=== PATIENT | female | born 1940 | race Caucasian/White ===

== ENCOUNTER → 2017-06-24 16:37 | Outpatient (CLI) | payer MEDICARE, SELFPAY | PROVIDERS: Family Provider Internal Medicine; PCP Internal Medicine; Visit Provider Podiatrist | DX: L03.032 Cellulitis of left toe (principal) | CPT/HCPCS: 87070; 87077; 87186; 87205 ==

== ENCOUNTER → 2018-03-27 20:17 | Outpatient (CLI) | payer MEDICARE, SELFPAY | PROVIDERS: Family Provider Internal Medicine; PCP Internal Medicine; Referring Provider Podiatrist; Visit Provider Podiatrist | DX: L03.032 Cellulitis of left toe (principal) | CPT/HCPCS: 87070; 87077; 87186; 87205 ==

== ENCOUNTER → 2018-04-02 18:33 | Outpatient (CLI) | payer MEDICARE, SELFPAY ==
[2018-04-02 20:00] LABS: Source- Body Fluid OTHER
[2018-04-04 10:20] LABS: Pathologist Review Reviewed
--- OUTSIDE RECORDS SUMMARY | 2018-05-19 22:33 | XMS RPT_ITS ---
:1940 Author Organization OHIP Care Team Providers Name Role Phone John Archer Attending Unavailable Dav, Whitney Primary Care Unavailable Jovannynning John Referring Unavailable JovannynnJohn galvan Attending Unavailable Dav, Whitney Primary Care Unavailable Vu Archerrey Referring Unavailable John Archer Attending Unavailable Wunning, John Referring Unavailable Dav, Whitney Primary Care Unavailable Jovannynning, John Attending Unavailable Dav, Whitney Primary Care Unavailable Jovannynning, John Referring Unavailable PROBLEMS PROBLEMS No Problem Records FoundPROCEDURES PROCEDURES No Procedure Records FoundRESULTS RESULTS CBC W/DIFF, AUTOMATED Collected: 04/03/2018 Status: F Source: [place] 2:04 PM [facility] [place] CODE TESTS RESULT OUT OF RANGE REFERENCE UNITS LAB L100.1000 4.4-11.0 K/mm3 Normal WBC 8.1 LAB L100.1200 4.2-5.4 M/mm3 Normal RBC 4.34 LAB L100.1300 12.0-15.0 g/dl Low HGB 11.6 LAB L100.1400 37-47 % Low HCT 36.7 LAB L100.1500 81-99 fL Normal MCV 84.6 LAB L100.1600 27.0-32.0 pg Low MCH 26.7 LAB L100.1700 32-36 g/gl Low MCHC 31.6 LAB L100.1810 11.6-14.6 % Normal RDW CV 14.3 LAB L100.1820 35.1-43.9 fl High RDW SD 44.8 LAB L100.1900 150-450 K/mm3 Normal PLT 320 LAB L100.2000 6.2-12.0 fl Normal MPV 10.1 LAB L100.2100 47-70 % High NEUT% 72.4 LAB L100.2200 19-41 % Normal LY% 20.6 LAB L100.2300 0-10 % Normal MONO% 5.5 LAB L100.2400 0-5 % Normal EO% 1.2 LAB L100.2500 0-1 % Normal BASO% 0.2 LAB L100.2550 0.0-0.9 % Normal IM GRAN % 0.100 Result Comment: IG% - Immature Granulocytes (promyelocytes, myelocytes and metamyelocytes) > 1% indicates that a LEFT SHIFT is Present. LAB L100.2620 2.0-7.7 X10 3/uL Normal Absolute Neut 5.8 LAB L100.2720 0.83-4.51 X10 3/ul Normal Absolute Lymph 1.66 Performed By: #### L100.0100 #### [facility] [address] [facility] [place], [address] COMPREHENSIVE METABOLIC Collected: 04/03/2018 Status: F Source: [facility] 2:04 PM [facility] [place] CODE TESTS RESULT OUT OF RANGE REFERENCE UNITS LAB L501.0100 74-106 mg/dL Normal GLU 93 Result Comment: Please note revised GLUCOSE reference range effective 2017. LAB L501.1000 7-18 mg/dL Normal BUN 18 LAB L501.1100 0.55-1.02 mg/dL Normal CREAT,SERUM 0.67 Result Comment: The validity of the calculated GFR AND GFRAA in patients over 70 years has not been determined. Clinical correlation is essential. LAB L501.1110 >60 mL/min Normal EST GFR 91 Result Comment: Non- GFR Calc LAB L501.1115 >60 mL/min Normal EST GFR - AA 110 Result Comment: GFR Calc LAB L501.1300 10-20 RATIO High BUN/CRE 26.7 LAB L501.1500 6.4-8.2 g/dL T Normal PROT 7.4 LAB L501.1800 3.2-5.0 g/dL Normal ALB 3.5 LAB L501.1950 2.2-4.2 g/dL Normal GLOB 3.9 LAB L501.2000 0.9-2.4 RATIO Normal A/G 0.9 LAB L501.2200 8.5-10.1 mg/dL CA Normal 9.3 LAB L501.4100 15-37 U/L Low AST 12 LAB L501.4305 45-117 U/L Normal ALK P 98 LAB L501.4405 13-56 U/L Normal ALT 13 LAB L501.4600 0.20-1.00 mg/dL T Normal BILI 0.40 LAB L501.5300 136-145 mmol/L NA Normal 140 LAB L501.5600 3.5-5.1 mmol/L K Normal 3.6 LAB L501.5900 98-107 mmol/L CL Normal 102 LAB L501.6100 21.0-32.0 mmol/L Normal CO2 31.0 LAB L501.6200 5-15 Normal GAP 7 Performed By: #### L500.4050, L501.1400 #### [facility] [address] [place], [place], [address] URIC ACID Collected: 04/03/2018 Status: F Source: [place] 2:04 PM [facility] [place] CODE TESTS RESULT OUT OF RANGE REFERENCE UNITS LAB L501.1400 2.6-6.0 mg/dL High URIC 7.3 Result Comment: The drugs N-Acetylcysteine and Metamizole may falsely depress this assay. Performed By: #### L500.4050, L501.1400 #### [facility] [address] [place], [address] CRYSTALS, BODY FLUID Collected: 04/02/2018 Status: C Source: [place] 4:30 PM [facility] [place] CODE TESTS RESULT OUT OF RANGE REFERENCE UNITS LAB L200.4200 Normal SEE PATH REV CRYSTALS/BF LAB L200.4225 Normal OTHER SOURCE/BF LAB L200.6020 Normal PATH Reviewed REV Result Comment: Bloody specimen. Negative for cystals. Laz Sue M.D. 04/04/18 AMENDED REPORT 04/04/18 1020 PATH REV previously reported as: Will follow Performed By: #### L200.4175 #### [facility] [address] [place], [address] Observed: 04/02/2018 Status: F Source: [place] CULTURE, DEEP WOUND 4:30 PM [facility] [place] Comments: GOUT Gram Stain Gram Stain Rare Red Blood Cells No organisms seen Wound Culture No growth aerobically. Cult, Anaerobic No growth in 5 days. Performed By: #### M100.1500 #### [facility] [address] [place], [address] Observed: 03/27/2018 Status: F Source: [place] CULTURE, WOUND 1:45 PM [facility] [place] Gram Stain Gram Stain 1+ Red Blood Cells No organisms seen Wound Culture ORGANISM 1: Staphylococcus aureus Amount Growth Rare Staphylococcus aureus: REACTION Benzylpenicillin NF <=0.03 R Cefoxitin *NF - Clindamycin $$ <=0.25 S Inducable Clindamycin Resistan - Erythromycin $ <=0.25 S Gentamicin $ <=0.5 S Levofloxacin $ <=0.12 S Linezolid $$$$ 2 S Moxifloxicin *NF <=0.25 S Oxacillin NF <=0.25 S Tigecycline $$$$ <=0.12 S Rifampin $$ <=0.5 S Tetracycline NF <=1 S Trimethoprim/Sulfametho $ <=10 S Vancomycin $ <=0.5 S (NF) indicates non-formulary drug at [facility]. Approval by Infectious Disease Specialist required before non-formulary drugs may be ordered and/or dispensed. * CLSI guidelines does not recommend testing of cephalosporins. This interpretation is deduced from Beta-lactam/penicillin results. Performed By: #### M100.1400 #### [facility] [address] [place], [address] Observed: 06/24/2017 Status: F Source: [place] CULTURE, WOUND 12:00 PM [facility] [place] Comments: CELLULITITS L 1ST TOE Gram Stain Gram Stain Rare Epithelial cells Rare Red Blood Cells Rare White Blood Cells No organisms seen Wound Culture ORGANISM 1: Staphylococcus lugdunensis Amount Growth 3+ Staphylococcus lugdunensis: REACTION Benzylpenicillin NF 0.25 R Cefoxitin *NF - Clindamycin $$ <=0.25 S Inducable Clindamycin Resistan - Erythromycin $ <=0.25 S Gentamicin $ <=0.5 S Levofloxacin $ 0.25 S Oxacillin NF 2 S Tigecycline $$$$ <=0.12 S Rifampin $$ <=0.5 S Tetracycline NF <=1 S Vancomycin $ <=0.5 S (NF) indicates non-formulary drug at [facility]. Approval by Infectious Disease Specialist required before non-formulary drugs may be ordered and/or dispensed. * CLSI guidelines does not recommend testing of cephalosporins. This interpretation is deduced from Beta-lactam/penicillin results. Performed By: #### M100.1400 #### [facility] [address] [place], [address] ALLERGIES ALLERGIES No Allergies Records FoundENCOUNTERS ENCOUNTERS ADMIT/DISCHARGE ACCOUNT ADMITTING ENCOUNTER LOCATION SOURCE NUMBER CLASS 04/03/2018 [id number] Ambulatory [facility] 4 [facility] ing:MTLAB Repository 04/02/2018 [id number] Ambulatory [facility] 8 [facility] ing:LABSPEC Repository 03/27/[id number] ing:LABSPEC Repository 06/24/[id number] ing:MTLAB Repository PAYERS PAYERS ENCOUNTER GUARANTOR PAYER SUBSCRIBER SOURCE 04/03/2018 MEIR PINOL K [place] [id number] BACK Insurance:TREY STEINERDOB: [facility] [id number] Hospital Number: Repository [id number]: 330 [id number] [phone] (HP) Date:4811-45-52EC [facility] [address] [address]NR: 04/03/2018 Secondary NOT GIVENUNK [place] Insurance:SELF PAY [facility] Number: Effective Repository Date:2018-04-03 04/02/2018 MEIR English Primary MEIR English [place] [id number] BACK Insurance:TREY JONATHANERDOB: [facility] [id number] Hospital Number: Repository [id number]: 330 [id number] [phone] (HP) Date:1573-85-92TS [facility] [address] [address]ZU: 04/02/2018 Secondary NOT GIVENUNK [place] Insurance:SELF PAY [facility] Number: Effective Repository Date:2018-04-02 03/27/2018 Meir Tameka Primary Meir English [place] [id number] Back Insurance:TREY SteinerDOB: [facility] [id number] [facility] Number: Repository [id number]: 330 [id number] [phone] (HP) Date:9692-67-85YC [facility] [address] [address]YV: 03/27/2018 Secondary NOT GIVENUNK [place] Insurance:SELF PAY [facility] Number: Effective Repository Date:2018-03-27 06/24/2017 Meir English Primary Meir English [place] [id number] Back Insurance:TREY SteinerDOB: [facility] [id number] [facility] Number: Repository [id number]: [phone] [id number] [phone] () Date:9917-85-08UO [address] [place] [address]HO: 06/24/2017 Secondary NOT GIVENUNK [place] Insurance:SELF PAY [facility] Number: Effective Repository Date:2017-06-24
== END ==
PROVIDERS: Family Provider Internal Medicine; PCP Internal Medicine; Referring Provider Podiatrist; Visit Provider Podiatrist
DX: M10.9 Gout, unspecified (principal)
CPT/HCPCS: 87070; 87075; 87205; 89060

== ENCOUNTER → 2018-04-03 13:54 | Outpatient (CLI) | payer MEDICARE, SELFPAY ==
[2018-04-03 15:35] LABS: Absolute Lymphocyte Count 1.66 X10^3/ul (0.83-4.51); Absolute Neutrophil Count 5.8 X10^3/uL (2.0-7.7); Basophil# 0.02 X10^3/uL; Basophil% 0.2 % (0-1); Eosinophils% 1.2 % (0-5); Hematocrit 36.7 % (37-47); Hemoglobin 11.6 g/dl (12.0-15.0); Lymphocyte # 1.66 X10^3/ul (4.0); Lymphocyte % 20.6 % (19-41); Mean Corp Hgb Conc 31.6 g/gl (32-36); Mean Corpuscular Hgb 26.7 pg (27.0-32.0); Mean Corpuscular Volume 84.6 fL (81-99); Mean Platelet Vol. 10.1 fl (6.2-12.0); Monocyte# 0.44 X10^3/uL; Monocyte% 5.5 % (0-10); Neutrophil # 5.82 X10^3/uL (2.7-7.7); Neutrophil % 72.4 % (47-70); Platelet Count 320 K/mm3 (150-450); RBC Distribution Width CV 14.3 % (11.6-14.6); RBC Distribution Width SD 44.8 fl (35.1-43.9); Red Blood Count 4.34 M/mm3 (4.2-5.4); White Blood Count 8.1 K/mm3 (4.4-11.0)
[2018-04-03 15:37] LABS: POSITIVE COUNT NO; POSITIVE DIFFERENTIAL NO; POSITIVE MORPHOLOGY NO
[2018-04-03 15:45] LABS: ALB/GLOB Ratio 0.9 RATIO (0.9-2.4); AST(SGOT) 12 U/L (15-37); Alanine Aminotransfer ALT/SGPT 13 U/L (13-56); Albumin, Serum 3.5 g/dL (3.2-5.0); Alkaline Phosphatase 98 U/L (45-117); Anion Gap 7 (5-15); BUN 18 mg/dL (7-18); BUN/Creat Ratio 26.7 RATIO (10-20); Calcium,Total 9.3 mg/dL (8.5-10.1); Chloride 102 mmol/L (98-107); Creatinine, Serum 0.67 mg/dL (0.55-1.02); EST Glomerular Filtration Rate 91 mL/min (>60); Est Glom Filt Rate - Afr Amer 110 mL/min (>60); Globulin 3.9 g/dL (2.2-4.2); Glucose 93 mg/dL (74-106); Potassium 3.6 mmol/L (3.5-5.1); Protein, Total 7.4 g/dL (6.4-8.2); Sodium Level 140 mmol/L (136-145); Uric Acid 7.3 mg/dL (2.6-6.0)
--- OUTSIDE RECORDS SUMMARY | 2018-05-20 10:14 | XMS RPT_ITS ---
[...] W/DIFF, AUTOMATED Collected: 04/03/2018 Status: F Source: [place] 2:04 PM [facility] [place] TYPE CODE TESTS RESULT OUT OF [...] Lymph 1.66 Performed By: #### L100.0100 #### [facility] [address] [facility] [place], [address] COMPREHENSIVE METABOLIC Collected: 04/03/2018 Status: F Source: [facility] 2:04 PM [facility] [place] TYPE CODE TESTS RESULT OUT OF [...] 7 Performed By: #### L500.4050, L501.1400 #### [facility] [address] [place], [place], [address] URIC ACID Collected: 04/03/2018 Status: F Source: [place] 2:04 PM [facility] [place] TYPE CODE TESTS RESULT OUT OF RANGE REFERENCE UNITS LAB L501.1400 2.6-6.0 mg/dL High URIC 7.3 Result Comment: The drugs N-Acetylcysteine and Metamizole may falsely depress this assay. Performed By: #### L500.4050, L501.1400 #### [facility] [address] [place], [address] CRYSTALS, BODY FLUID Collected: 04/02/2018 Status: C Source: [place] 4:30 PM [facility] [place] TYPE CODE TESTS RESULT OUT OF RANGE REFERENCE UNITS LAB L200.4200 Normal SEE PATH REV CRYSTALS/BF LAB L200.4225 Normal OTHER SOURCE/BF LAB L200.6020 Normal PATH Reviewed REV Result Comment: Bloody specimen. Negative for cystals. Laz Sue M.D. 04/04/18 AMENDED REPORT 04/04/18 1020 PATH REV previously reported as: Will follow Performed By: #### L200.4175 #### [facility] [address] [place], [address] Observed: 04/02/2018 Status: F Source: [place] CULTURE, DEEP WOUND 4:30 PM [facility] [place] Comments: GOUT Gram Stain Gram Stain Rare Red Blood Cells No organisms seen Wound Culture No growth aerobically. Cult, Anaerobic No growth in 5 days. Performed By: #### M100.1500 #### [facility] [address] [place], [address] Observed: 03/27/2018 Status: F Source: [place] CULTURE, WOUND 1:45 PM [facility] [place] Gram Stain Gram Stain 1+ Red [...] <=0.5 S (NF) indicates non-formulary drug at [facility]. Approval by Infectious Disease Specialist required before non-formulary drugs may be ordered and/or dispensed. * CLSI guidelines does not recommend testing of cephalosporins. This interpretation is deduced from Beta-lactam/penicillin results. Performed By: #### M100.1400 #### [facility] [address] [place], [address] Observed: 06/24/2017 Status: F Source: [place] CULTURE, WOUND 12:00 PM [facility] [place] Comments: CELLULITITS L 1ST TOE Gram [...] <=0.5 S (NF) indicates non-formulary drug at [facility]. Approval by Infectious Disease Specialist required before non-formulary drugs may be ordered and/or dispensed. * CLSI guidelines does not recommend testing of cephalosporins. This interpretation is deduced from Beta-lactam/penicillin results. Performed By: #### M100.1400 #### [facility] [address] [place], [address] ALLERGIES ALLERGIES No Allergies Records FoundENCOUNTERS ENCOUNTERS ADMIT/DISCHARGE ACCOUNT ADMITTING ENCOUNTER LOCATION SOURCE NUMBER CLASS 04/03/2018 [id number] Ambulatory [facility] 4 [facility] ing:MTLAB Repository 04/02/2018 [id number] Ambulatory [facility] 8 [facility] ing:LABSPEC Repository 03/27/[id number] ing:LABSPEC Repository 06/24/[id number] ing:MTLAB Repository PAYERS PAYERS ENCOUNTER GUARANTOR PAYER SUBSCRIBER SOURCE 04/03/2018 MEIR PINOL K [place] [id number] BACK Insurance:TREY STEINERDOB: [facility] [id number] Hospital Number: Repository [id number]: 330 [id number] [phone] (HP) Date:5736-55-79VD [facility] [address] [address]FT: 04/03/2018 Secondary NOT GIVENUNK [place] Insurance:SELF PAY [facility] Number: Effective Repository Date:2018-04-03 04/02/2018 MEIR English Primary MEIR English [place] [id number] BACK Insurance:TREY JONATHANERDOB: [facility] [id number] Hospital Number: Repository [id number]: 330 [id number] [phone] (HP) Date:4862-72-63OJ [facility] [address] [address]AU: 04/02/2018 Secondary NOT GIVENUNK [place] Insurance:SELF PAY [facility] Number: Effective Repository Date:2018-04-02 03/27/2018 Meir Tameka Primary Meir English [place] [id number] Back Insurance:TREY SteinerDOB: [facility] [id number] [facility] Number: Repository [id number]: 330 [id number] [phone] (HP) Date:9172-05-80JJ [facility] [address] [address]GC: 03/27/2018 Secondary NOT GIVENUNK [place] Insurance:SELF PAY [facility] Number: Effective Repository Date:2018-03-27 06/24/2017 Meir English Primary Meir English [place] [id number] Back Insurance:TREY SteinerDOB: [facility] [id number] Eye Medical Center Number: Repository [id number]: [phone] [id number] [phone] () Date:2059-07-61[address] [address]VZ: 06/24/2017 Secondary NOT GIVENUNK [place] Insurance:SELF PAY [facility] Number: Effective Repository Date:2017-06-24
== END ==
PROVIDERS: Family Provider Internal Medicine; PCP Internal Medicine; Referring Provider Podiatrist; Visit Provider Podiatrist
DX: M10.9 Gout, unspecified (principal)
CPT/HCPCS: 36415; 80053; 84550; 85025

== ENCOUNTER → 2018-11-07 | Outpatient (CLI) | payer MEDICARE, SELFPAY ==
[2018-11-07 20:01] LABS: M R Staph aureus DNA By PCR Negative (Negative); Probe Check PASS; Specimen Processing Control PASS; Staph aureus DNA By PCR NEGATIVE (Negative)
== END | disposition home or self-care (01) ==
PROVIDERS: Family Provider Internal Medicine; PCP Internal Medicine; Referring Provider Podiatrist; Visit Provider Podiatrist
DX: L97.529 Non-pressure chronic ulcer of other part of left foot with unspecified severity (principal)
CPT/HCPCS: 87070; 87075; 87186; 87205; 87640

== ENCOUNTER → 2019-05-27 11:11 | Outpatient (CLI) | payer MEDICARE, SELFPAY ==
--- NOTE | 2019-05-27 11:21 | RAD_ITS ---
STUDY: X-RAY - RIGHT HAND, ATTENTION MIDDLE FINGER REASON FOR EXAM: Gout, middle finger. TECHNIQUE: 3 view(s) of the finger were obtained. COMPARISON: None. FINDINGS: Normal metacarpal head. Normal metacarpophalangeal joint. There is a small osseous erosion at the dorsal aspect of the proximal phalangeal head with a small overhanging edge. Normal middle phalanx. Normal distal phalanx. There are marginal osteophytes, joint space narrowing and subchondral cystic change of the proximal interphalangeal joint. There are dorsal osteophytes at the distal interphalangeal joint without joint space narrowing. There is soft tissue swelling at the proximal interphalangeal joint. RAD/Hand Min 3 Views IMPRESSION: Osseous erosion at the dorsal aspect of the proximal phalangeal head, suggestive of gout. Osteoarthritis of the proximal interphalangeal joint. Soft tissue swelling at the proximal interphalangeal joint. Electronically Signed: Gabe Beckford MD at 12:13 EST Tel , Service support ,
== END ==
PROVIDERS: PCP Internal Medicine; Referring Provider Nurse Practitioner; Visit Provider Nurse Practitioner
DX: M10.9 Gout, unspecified (principal)
CPT/HCPCS: 73130

== ENCOUNTER 2019-06-19 14:47 | Inpatient (IN) | payer MEDICARE, SELFPAY ==
[2019-06-19] VITALS (10 sets, daily range): BP systolic 146–193; BP diastolic 70–89; PULSE 73–85; RESP 16–20; TEMP 36.4–37.2; O2SAT 94–97; BMI 36.3; BMI 35.6
--- NOTE | 2019-06-19 15:13 | EKG12_ITS ---
Test Reason : CP ADMIT/DYSPNEA Blood Pressure : / mmHG Vent. Rate : 083 BPM Atrial Rate : 083 BPM P-R Int : 152 ms QRS Dur : 094 ms QT Int : 380 ms P-R-T Axes : 074 -11 047 degrees QTc Int : 446 ms Normal sinus rhythm Nonspecific ST and T wave abnormality Abnormal ECG Confirmed by TEE MORENO, NORMA ([id number]), book or script editor EMILY MONTEZ ([id number]) on 06/24/2019 2:02:46 PM Referred By: DR JACINTO Confirmed By:NORMA OLIVEIRA MD
--- NOTE | 2019-06-19 15:15 | RAD_ITS ---
EXAM DESCRIPTION: PORTABLE AP CHEST CLINICAL HISTORY: 78 years Female, sob started last night, productive cough, sinus drainage, headache sob started last night, productive cough, sinus drainage, headache COMPARISON: None FINDINGS: The thorax is intact. The heart and mediastinum appear to be within normal limits. The lungs appear to be well areated without evidence of pneumonic consolidation or pleural effusion. RAD/Chest 1 View (Portable) IMPRESSION: Normal portable chest. Electronically Signed: Johnathon Godoy, at 15:41 EST Tel , Service support ,
[2019-06-19 15:36] LABS: Absolute Lymphocyte Count 0.67 X10^3/uL (0.83-4.51); Absolute Neutrophil Count 2.1 X10^3/uL (2.0-7.7); Basophil# 0.01 X10^3/uL; Basophil% 0.3 % (0-1); Eosinophil# 0.01 X10^3/uL; Eosinophils% 0.3 % (0-5); Hematocrit 27.1 % (37-47); Hemoglobin 7.9 g/dL (12.0-15.0); Lymphocyte # 0.67 X10^3/ul (4.0); Lymphocyte % 20.7 % (19-41); Mean Corp Hgb Conc 29.2 g/dL (32-36); Mean Corpuscular Hgb 22.1 pg (27.0-32.0); Mean Corpuscular Volume 75.7 fL (81-99); Mean Platelet Vol. 9.5 fl (6.2-12.0); Monocyte# 0.45 X10^3/uL; Monocyte% 13.9 % (0-10); NRBC Flagged by Analyzer 0 % (0-5); Neutrophil # 2.07 X10^3/uL (2.7-7.7); Neutrophil % 64.2 % (47-70); POSITIVE MORPHOLOGY YES; Platelet Count 200 K/mm3 (150-450); RBC Distribution Width CV 17.8 % (11.6-14.6); RBC Distribution Width SD 48.6 fl (35.1-43.9); Red Blood Count 3.58 M/mm3 (4.2-5.4); White Blood Count 3.2 K/mm3 (4.4-11.0)
[2019-06-19 15:54] LABS: Anion Gap 5 (5-15); BUN 7 mg/dL (7-18); BUN/Creat Ratio 11.1 RATIO (10-20); Calcium,Total 8.3 mg/dL (8.5-10.1); Chloride 105 mmol/L (98-107); Creatinine, Serum 0.63 mg/dL (0.55-1.02); EST Glomerular Filtration Rate 97 mL/min (>60); Est Glom Filt Rate - Afr Amer 118 mL/min (>60); Estimated Creatinine Clearance 46.54 ml/min; Glucose 106 mg/dL (74-106); Potassium 3.4 mmol/L (3.5-5.1); Sodium Level 138 mmol/L (136-145)
--- NOTE | 2019-06-19 16:05 | ED.DCSUM_ITS ---
- ER Visit Summary Date of Service: 06/19/19 Chief Complaint: [Shortness of breath] History of Present Illness: The patient is a 78 F [presents the emergency department with shortness of breath that occurred last evening. Patient states that she woke up in the middle night and felt very winded. Patient felt somewhat short of breath before going to bed also. States she had a hard time laying flat breathing so she sat up in a chair and try to finish the night off sleeping there. Patient did describe some discomfort and tightness across her chest and into her neck but denied any chest pain. Patient does describe increased exertional dyspnea of late. She denies recent travel or surgery. Patient telling me she was wheezing a little bit yesterday. She denies fever or significant cough. She is had some sinus drainage. Patient has history of hypertension and borderline diabetes. Patient also with history of gout. He has had prior appendectomy cholecystectomy. No heart history. She thinks her last stress test was over 10 years ago and she is never had a heart cath.] Physical Examination: [HEENT-PERRLA, EOMI. Cranial nerves II through XII grossly intact. TMs clear. Mucous membranes moist. No adenopathy. Cardiovascular-regular rate and rhythm without murmur or ectopy Lungs-clear to auscultation, chest wall stable without crepitus or subcu emphysema Abdomen-normoactive bowel sounds, soft, nontender, no rebound or rigidity, no peritoneal signs. Extremities-intact ?4, normal range of motion, normal pulses, atraumatic] Test Results: [CBC with differential was unremarkable. Chemistries unremarkable. Troponin is less than 0.015. Chest x-ray is normal. Valenza screen was negative.] Emergency Department Course and Treatment: [He received aspirin on arrival.] Treatment Plan: [Admit for further work-up and evaluation of her exertional dyspnea to rule out acute coronary syndrome] Disposition: [Admit] Impression: [Exertional dyspnea-rule out acute coronary syndrome] This note was generated with [employer] dictation software. It may contain incorrect words, spelling, and punctuation that were not noted in review of the chart prior to signing ED Disposition - Plan for ED Patient: Referrals: Whitney Demarco DO [Primary Care Provider] -
[2019-06-19 16:08] LABS: Differential Indicated SCAN CRITERIA MET
[2019-06-19] MEDS: 0.9% Normal Saline 1,000 ML 150 ML IV (16:08)
[2019-06-19] MEDS: Aspirin 81 MG TAB.CHEW 324 MG PO (16:08)
[2019-06-19 16:09] LABS: Anisocytosis 2+; Platelet Estimate ADEQUATE (ADEQ); Red Cell Morphology N CHROM NORMAL (NORM C&C)
--- NOTE | 2019-06-19 16:40 | HP.PCM_ITS ---
History of Present Illness The patient is a 78 year old F [] Past Medical History Allergies Penicillins [PCN] Allergy (Verified 06/19/19 14:49) Shortness of breath Smoking Status: Never smoker - Physical Exam Vitals/I&O's: Vital Signs Temp Pulse Resp BP Pulse Ox 98.1 F 75 20 H 146/70 H 96 06/19/19 16:37 06/19/19 16:37 06/19/19 16:37 06/19/19 16:37 06/19/19 16:37 Oxygen Delivery Method Room Air Weight: 231 lb 11.293 oz Body Mass Index (BMI) 36.3 Microbiology Past 72 Hours 06/19/19 15:30 Mucosa - Nose Influenza Types A,B Direct FA (HILARIA) - Final Laboratory Results 06/19/19 15:29: WBC 3.2 L, RBC 3.58 L, Hgb 7.9 L, Hct 27.1 L, MCV 75.7 L, MCH 22.1 L, MCHC 29.2 L, RDW Std Deviation 48.6 H, RDW Coeff of Rex 17.8 H, Plt Count 200, MPV 9.5, Immature Gran % (Auto) 0.600, Neut % (Auto) 64.2, Lymph % (A uto) 20.7, [place] % (Auto) 13.9 H, Eos % (Auto) 0.3, Baso % (Auto) 0.3, Absolute Neuts (auto) 2.1, Absolute Lymphs (auto) 0.67 L, Nucleated RBC % 0, Platelet Estimate ADEQUATE, RBC Morphology N CHROM, Anisocytosis 2+ 06/19/19 15:29: Sodium 138, Potassium 3.4 L, Chloride 105, Carbon Dioxide 28.0, Anion Gap 5, BUN 7, Creatinine 0.63, Estim Creat Clear Calc 46.54, Est GFR (MDRD) Af Amer 118, Est GFR (MDRD) Non-Af 97, BUN/Creatinine Ratio 11.1, Glucose 106, Calcium 8.3 L, Troponin I < 0.015 Current Medications Sodium Chloride () 1,000 mls @ 150 mls/hr IV .Q6H40M [facility] Last Admin: 06/19/19 16:08 Dose: 150 mls/hr Documented by:
--- NOTE | 2019-06-19 17:37 | HP.PCM_ITS ---
Problem List (1) Gout Status: Chronic (2) Hypertension Status: Chronic (3) EDDIE (obstructive sleep apnea) Status: Chronic (4) Hypothyroidism Status: Chronic (5) Anemia Status: Chronic History of Present Illness Date of Admission: 06/19/19 Chief Complaint: Shortness of breath. The patient is a 78 year old F who presents emergency room due to shortness of breath. Patient reports around 430 this morning after going to the restroom she became significantly short of breath. She went to lay down in bed and had increased shortness of breath with lying down. She states she then went out to the couch and put her feet up and shortness of breath slowly improved. She denies palpitations, chest pain, diaphoresis, lightheadedness or other associated symptoms. She denies cough, fever/chills. Patient does report for the past several months she has had dyspnea with minimal exertion. She attributed this to being out of shape. Patient states she has had recent evaluation for anemia and was started on iron by her primary care provider and also scheduled for outpatient colonoscopy. She denies blood in stool. She has a past medical history of hypertension, hypothyroidism, EDDIE, gout. Past Medical History Past Medical History (Chronic Problems): Chronic Problems Gout (Chronic) Hypertension (Chronic) EDDIE (obstructive sleep apnea) (Chronic) Hypothyroidism (Chronic) Anemia (Chronic) Allergies Penicillins [PCN] Allergy (Verified 06/19/19 14:49) Shortness of breath Home Medications: Ambulatory Orders Medication Instructions Recorded Allopurinol 300 mg PO DAILY 06/19/19 Amlodipine [Norvasc] 5 mg PO DAILY 06/19/19 Ascorbic Acid [Vitamin C with Aubrie 1,000 mg PO DAILY 06/19/19 Hips] B,C/Folic/Zinc/Copper Ox/Vit E 1 tab PO DAILY 06/19/19 [Stress B-Complex Tablet] Bisoprolol Fumarate 10 mg PO DAILY 06/19/19 Lisinopril 40 mg PO DAILY 06/19/19 Multivit-Min/Iron/Folic/Lutein 1 tab PO DAILY 06/19/19 [Centrum Silver Women Tablet] [place]-3 Fatty Acids [[place]-3] 1,000 mg PO DAILY 06/19/19 Thyroid,Pork [[place] Thyroid] 30 mg PO DAILY 06/19/19 Ubidecarenone [Co Q-10] 100 mg PO DAILY 06/19/19 Surgical History: appendectomy, cholecystectomy, tonsillectomy, - - Right knee arthroscopy Psychiatric History: No pertinent psych hx 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 Denies: Cough, Sputum production, Wheezing Gastrointestinal: Denies: Abdominal Pain, Nausea, Vomiting Genitourinary: Denies: Dysuria Musculoskeletal: Denies: Joint Pain, Joint Tenderness Skin: Denies: Rash, Wounds Neurological: Denies: Numbness, Tingling, Focal weakness Psychiatric: Denies: Anxiety, Depression, Homicidal Ideations, Suicidal Ideations Hematologic/ Lymphatic: Denies: Easy Bruising, Easy Bleeding VTE Information - Inpt Only VTE Present on Admission: No VTE Mechan Device Prophylaxis: None VTE Pharm Prophylaxis ordered?: Yes - Physical Exam Vitals/I&O's: Vital Signs Temp Pulse Resp BP Pulse Ox 98.1 F 77 20 H 161/72 H 97 06/19/19 16:37 06/19/19 16:59 06/19/19 16:59 06/19/19 16:59 06/19/19 16:59 Oxygen Delivery Method Room Air Weight: 231 lb 11.293 oz Body Mass Index (BMI) 36.3 General: Alert, Oriented x3, Cooperative HEENT: Atraumatic, PERRLA, EOMI, Normocephalic Neck: Supple, No JVD, Negative Carotid Bruits Lungs: Clear to auscultation, Diminished Cardiovascular: Regular rate, Regular Rhythm, Normal S1, Normal S2, No murmurs Abdomen: Bowel Sounds Present, Soft, Non Tender, Non-Distended, Obese Extremities: No clubbing, No cyanosis, No edema, Capillary Refill Less than 3 Seconds Skin: No rashes, No breakdown Musculoskeletal: No Tenderness to Palpation of Joints or Extremities Neurological: Cranial nerves II-XII grossly intact, Neuro grossly intact Psych/Mental Status: Normal Affect, Appropriate Microbiology Past 72 Hours 06/19/19 15:30 Mucosa - Nose Influenza Types A,B Direct FA (HILARIA) - Final Laboratory Results 06/19/19 15:29: WBC 3.2 L, RBC 3.58 L, Hgb 7.9 L, Hct 27.1 L, MCV 75.7 L, MCH 22.1 L, MCHC 29.2 L, RDW Std Deviation 48.6 H, RDW Coeff of Rex 17.8 H, Plt Count 200, MPV 9.5, Immature Gran % (Auto) 0.600, Neut % (Auto) 64.2, Lymph % (Auto) 20.7, [place] % (Auto) 13.9 H, Eos % (Auto) 0.3, Baso % (Auto) 0.3, Absolute Neuts (auto) 2.1, Absolute Lymphs (auto) 0.67 L, Nucleated RBC % 0, Platelet Estimate ADEQUATE, RBC Morphology N CHROM, Anisocytosis 2+ 06/19/19 15:29: Sodium 138, Potassium 3.4 L, Chloride 105, Carbon Dioxide 28.0, Anion Gap 5, BUN 7, Creatinine 0.63, Estim Creat Clear Calc 46.54, Est GFR (MDRD) Af Amer 118, Est GFR (MDRD) Non-Af 97, BUN/Creatinine Ratio 11.1, Glucose 106, Calcium 8.3 L, Troponin I < 0.015 Current Medications Sodium Chloride () 1,000 mls @ 150 mls/hr IV .[id number] [facility] Last Admin: 06/19/19 16:08 Dose: 150 mls/hr Documented by: Sodium Chloride () 10 - 40 ml IV UD PRN PRN Reason: SALINE FLUSH Assessment/Plan 1. Dyspnea- unclear etiology. CXR unremarkable. Check BNP. Trend enzymes. Obtain echocardiogram. Plan for stress test if enzymes remain unremarkable. Check TSH, mg. 2. Acute on chronic anemia-possibly contributing to #1. On iron supplementation. Trend CBC. Patient has plans for outpatient colonoscopy. If hemoglobin trends down, may need consultation for sooner evaluation. 3. Hypertension-patient reports recently difficult to control. Continue amlodipine, lisinopril, beta-anneliese. PRN hydralazine for systolic blood pressure greater than 160. 4. EDDIE-patient previously prescribed CPAP which she does not wear. Reports she has CPAP at home and does not sure where it is located. 5. Hypothyroidism-continue home [place] Thyroid regimen. 6. Gout-continue allopurinol regimen. DVT Prophylaxis-Lovenox subcu This patient was seen by CRISTA Olmedo under the supervision of Dr. Harvey.
--- NOTE | 2019-06-19 17:48 | ECHOD_ITS ---
Reason For Study: Dyspnea/SOB Procedure This was a 2D Doppler, Color Flow transthoracic echocardiogram. The exam was of adequate technical quality. Exam performed portable in patient room. Left Ventricle Normal LV size. Moderate concentric left ventricular hypertrophy. Left ventricular systolic function is normal. The estimated ejection fraction is 65 %. No regional wall motion abnormalities noted. Right Ventricle Normal RV size. Normal systolic function. Atria The left atrium is moderately enlarged. The right atrium is mildly enlarged. No doppler evidence for ASD. Mitral Valve There is no mitral annular calcification. Normal mitral valve. Mild (1+) mitral valve insufficiency. Tricuspid Valve Normal tricuspid valve. Mild tricuspid valve insufficiency. Right ventricular systolic pressure estimated to be 29 mmHg. Aortic Valve Trisinus/trileaflet aortic valve. Normal aortic valve. Pulmonic Valve The pulmonic valve is not well visualized. Mild (1+) pulmonic valve insufficiency. Great Vessels Normal sized aortic root. Pericardium/Pleural No pericardial effusion. Epicardial fat. MMode/2D Measurements & Calculations LVIDd: 5.1 cm IVSd: 1.4 cm Ao root diam: 3.0 cm LVIDs: 3.0 cm LVPWd: 1.5 cm RVDd: 4.9 cm FS: 40.7 % LAV(MOD-bp): 108.9 ml LVAd ap4: 28.2 cm2 SV(MOD-sp4): 58.1 ml LAV(MOD-bp) Indexed: 51.0 ml/m2 EDV(MOD-sp4): 96.1 ml LAV(MOD-sp2): 73.4 ml EDV(sp4-el): 95.4 ml LAV(MOD-sp4): 133.3 ml LVAs ap4: 15.6 cm2 ESV(MOD-sp4): 37.9 ml ESV(sp4-el): 35.8 ml EF(MOD-sp4): 60.5 % EF(sp4-el): 62.5 % SV(sp4-el): 59.6 ml LA A4 area: 34.4 cm2 LA dimension(2D): 4.0 cm RA A4 area: 21.2 cm2 Doppler Measurements & Calculations MV E max riley: 97.1 cm/sec Lat Peak E' Riley: 5.7 cm/sec Med Peak E' Riley: 6.0 cm/sec MV A max riley: 68.5 cm/sec E/E' lat: 17.1 E/E' med: 16.2 MV E/A: 1.4 Ao V2 max: 174.3 cm/sec LV V1 max: 125.6 cm/sec PA V2 max: 101.1 cm/sec Ao max P.1 mmHg LV V1 max P.3 mmHg Ao V2 mean: 119.4 cm/sec Ao mean P.3 mmHg Ao V2 VTI: 36.5 cm TR max riley: 256.2 cm/sec TR max P.3 mmHg Interpretation Summary Left ventricular systolic function is normal. The estimated ejection fraction is 65 %. Moderate concentric left ventricular hypertrophy. The left atrium is moderately enlarged. The right atrium is mildly enlarged. Mild (1+) mitral valve insufficiency. Mild tricuspid valve insufficiency. Mild (1+) pulmonic valve insufficiency. Epicardial fat. Right ventricular systolic pressure estimated to be 29 mmHg. Transmitral diastolic flow velocities suggest diastolic dysfunction (pseudonormal pattern). Ordering Physician: Rhea Baez Referring Physician: Whitney Demarco Performed By: Amirah Castro, GABRIELLA, RVT
[2019-06-19 18:30] LABS: BNP,B-Type NATRIURETIC PEPTIDE 645.8 pg/mL (0-100)
--- NOTE | 2019-06-19 18:30 | EKG12_ITS ---
Test Reason : SOB Blood Pressure : / mmHG Vent. Rate : 082 BPM Atrial Rate : 082 BPM P-R Int : 150 ms QRS Dur : 090 ms QT Int : 362 ms P-R-T Axes : 076 -08 044 degrees QTc Int : 422 ms Poor data quality, interpretation may be adversely affected Normal sinus rhythm Nonspecific ST abnormality Abnormal ECG Confirmed by TEE MORENO, NORMA ([id number]), editorial cartoonist ROBYN LEONG ([id number]) on 06/22/2019 10:02:08 AM Referred By: CLARK Confirmed By:NORMA OLIVEIRA MD
[2019-06-19 18:35] LABS: Magnesium 2.2 mg/dL (1.6-2.6); Thyroid Stim Hormone (TSH) 2.94 uIU/mL (0.358-3.74)
[2019-06-19] MEDS: 0.9% Saline Lock 10 ML Syringe IV (19:29)
[2019-06-19] MEDS: Furosemide 40 MG/4 ML Vial IV (19:29)
[2019-06-19] MEDS: hydrALAZINE 20 MG/ML Vial 5 MG IV (22:20)
[2019-06-20] VITALS (19 sets, daily range): BP systolic 104–165; BP diastolic 50–90; PULSE 67–82; RESP 18–20; TEMP 36.6–37.5; O2SAT 92–98
--- NOTE | 2019-06-20 06:00 | EKG12_ITS ---
Test Reason : AM EKG Blood Pressure : / mmHG Vent. Rate : 069 BPM Atrial Rate : 069 BPM P-R Int : 154 ms QRS Dur : 090 ms QT Int : 400 ms P-R-T Axes : 041 -04 037 degrees QTc Int : 428 ms Normal sinus rhythm Nonspecific ST abnormality Abnormal ECG Confirmed by TEE MORENO, NORMA ([id number]), scanning supervisor EMILY MONTEZ ([id number]) on 06/24/2019 1:49:24 PM Referred By: DR JACINTO Confirmed By:NORMA OLIVEIRA MD
[2019-06-20 06:02] LABS: Absolute Lymphocyte Count 0.69 X10^3/uL (0.83-4.51); Basophil# 0.01 X10^3/uL; Basophil% 0.3 % (0-1); Eosinophil# 0.02 X10^3/uL; Eosinophils% 0.7 % (0-5); Hematocrit 25.1 % (37-47); Hemoglobin 7.3 g/dL (12.0-15.0); Lymphocyte # 0.69 X10^3/ul (4.0); Lymphocyte % 22.5 % (19-41); Mean Corp Hgb Conc 29.1 g/dL (32-36); Mean Corpuscular Hgb 21.9 pg (27.0-32.0); Mean Corpuscular Volume 75.1 fL (81-99); Mean Platelet Vol. 10.3 fl (6.2-12.0); Monocyte# 0.38 X10^3/uL; Monocyte% 12.4 % (0-10); NRBC Flagged by Analyzer 0 % (0-5); Neutrophil # 1.96 X10^3/uL (2.7-7.7); Neutrophil % 63.8 % (47-70); Platelet Count 187 K/mm3 (150-450); RBC Distribution Width CV 17.7 % (11.6-14.6); RBC Distribution Width SD 47.6 fl (35.1-43.9); Red Blood Count 3.34 M/mm3 (4.2-5.4); White Blood Count 3.1 K/mm3 (4.4-11.0)
[2019-06-20 06:35] LABS: Anion Gap 7 (5-15); BUN 9 mg/dL (7-18); BUN/Creat Ratio 17.5 RATIO (10-20); Chloride 104 mmol/L (98-107); Cholesterol 143 mg/dL (200); Creatinine, Serum 0.51 mg/dL (0.55-1.02); EST Glomerular Filtration Rate 123 mL/min (>60); Est Glom Filt Rate - Afr Amer 149 mL/min (>60); Glucose 114 mg/dL (74-106); High Density Lipoprotein 43 mg/dL; Potassium 3.4 mmol/L (3.5-5.1); Sodium Level 139 mmol/L (136-145); Triglycerides 90 mg/dL; Very Low Density Lipoprotein 18 mg/dL (5-40)
[2019-06-20] MEDS: Aspirin E.C. 81 MG Tablet PO (09:00)
[2019-06-20 10:34] LABS: Iron 11 ug/dL (50-170); Iron Binding Capacity,Total 467 ug/dL (250-450)
[2019-06-20] MEDS: Allopurinol 300 MG Tablet PO (10:57)
[2019-06-20] MEDS: Lisinopril 40 MG Tablet PO (10:57)
[2019-06-20] MEDS: Bisoprolol Fumarate 5 MG Tablet 10 MG PO (10:58)
[2019-06-20] MEDS: amLODIPine 5 MG Tablet PO (10:58)
[2019-06-20] MEDS: Ascorbic Acid 500 MG Tablet 1000 MG PO (10:58)
[2019-06-20] MEDS: Thyroid 15 MG Tablet 30 MG PO (10:58)
--- NOTE | 2019-06-20 14:04 | PCM.PROGNOTE ---
Subjective: Patient seen and examined. Patient states she did not tell this examiner on admission that she has been having rectal bleeding/discharge and intermittently feels like there is a mass in that area. She states she did not want to discuss this with her brother and son at bedside in ER. Patient reports she has been keeping a pad in her underwear lining due to ongoing bleeding. Rectal exam was performed without any obvious mass or abnormality. Patient did have external hemorrhoids which do not appear to be inflamed or bleeding. - Physical Exam Vitals/I&O's: Vital Signs Temp Pulse Resp BP Pulse Ox 98.4 F 71 20 H 132/61 H 97 06/20/19 08:53 06/20/19 10:00 06/20/19 10:00 06/20/19 08:53 06/20/19 10:00 Oxygen Delivery Method Room Air Weight: 227 lb 1.218 oz Body Mass Index (BMI) 35.6 Orthostatic Vital Signs Start: 06/20/19 06:01 Freq: q24h Status: Active Protocol: Activity Type Activity Date Activity User E-Sign Co-Sign Detail Recorded Client Recorded Date Recorded By Document 06/20/19 06:01 [facility] [id number] 06/20/19 06:01 G 06/20/19 06:01 Orthostatic Vitals Standing -Blood Pressure (90/60-120/80) 151/82 H -Extremity Use Right Arm -Pulse Rate (60-100) 82 Sitting -Blood Pressure (90/60-120/80) 161/83 H -Extremity Use Right Arm -Pulse Rate (60-100) 81 Lying -Blood Pressure (90/60-120/80) 154/75 H -Extremity Use Right Arm -Pulse Rate (60-100) 72 Intake and Output for Last 24 Hours 06/18/19 06/19/19 06/20/19 23:59 23:59 23:59 Intake Total 595 / 595 Output Total 1650 / 1650 Balance 595 / -305 -1650 / -1650 General: Alert, Oriented x3, Cooperative HEENT: Atraumatic, PERRLA, EOMI, Normocephalic Neck: Supple, No JVD, Negative Carotid Bruits Lungs: Clear to auscultation, Normal air movement Cardiovascular: Regular rate, Regular Rhythm, Normal S1, Normal S2, No murmurs Abdomen: Bowel Sounds Present, Soft, Non Tender, Non-Distended Extremities: No clubbing, No cyanosis, No edema, Capillary Refill Less than 3 Seconds Skin: No rashes, No breakdown Musculoskeletal: No Tenderness to Palpation of Joints or Extremities Neurological: Cranial nerves II-XII grossly intact Psych/Mental Status: Normal Affect, Appropriate Microbiology Past 72 Hours 06/19/19 15:30 Mucosa - Nose Influenza Types A,B Direct FA (HILARIA) - Final Laboratory Results 06/19/19 15:29: WBC 3.2 L, RBC 3.58 L, Hgb 7.9 L, Hct 27.1 L, MCV 75.7 L, MCH 22.1 L, MCHC 29.2 L, RDW Std Deviation 48.6 H, RDW Coeff of Rex 17.8 H, Plt Count 200, MPV 9.5, Immature Gran % (Auto) 0.600, Neut % (Auto) 64.2, Lymph % (Auto) 20.7, [place] % (Auto) 13.9 H, Eos % (Auto) 0.3, Baso % (Auto) 0.3, Absolute Neuts (auto) 2.1, Absolute Lymphs (auto) 0.67 L, Nucleated RBC % 0, Platelet Estimate ADEQUATE, RBC Morphology N CHROM, Anisocytosis 2+ 06/19/19 15:29: Sodium 138, Potassium 3.4 L, Chloride 105, Carbon Dioxide 28.0, Anion Gap 5, BUN 7, Creatinine 0.63, Estim Creat Clear Calc 46.54, Est GFR (MDRD) Af Amer 118, Est GFR (MDRD) Non-Af 97, BUN/Creatinine Ratio 11.1, Glucose 106, Calcium 8.3 L, Troponin I < 0.015 06/19/19 15:29: Magnesium 2.2, TSH 2.94 06/19/19 15:29: B-Natriuretic Peptide 645.8 H 06/19/19 18:48: Troponin I < 0.015 06/19/19 20:59: Troponin I < 0.015 06/20/19 05:24: WBC 3.1 L, RBC 3.34 L, Hgb 7.3 L, Hct 25.1 L, MCV 75.1 L, MCH 21.9 L, MCHC 29.1 L, RDW Std Deviation 47.6 H, RDW Coeff of Rex 17.7 H, Plt Count 187, MPV 10.3, Immature Gran % (Auto) 0.300, Neut % (Auto) 63.8, Lymph % (Auto) 22.5, [place] % (Auto) 12.4 H, Eos % (Auto) 0.7, Baso % (Auto) 0.3, Absolute Neuts (auto) 2.0, Absolute Lymphs (auto) 0.69 L, Nucleated RBC % 0 06/20/19 05:24: Sodium 139, Potassium 3.4 L, Chloride 104, Carbon Dioxide 28.0, Anion Gap 7, BUN 9, Creatinine 0.51 L, Estim Creat Clear Calc 44.80, Est GFR (MDRD) Af Amer 149, Est GFR (MDRD) Non-Af 123, BUN/Creatinine Ratio 17.5, Glucose 114 H, Calcium 8.0 L, Triglycerides 90, Cholesterol 143, LDL Cholesterol 82, VLDL Cholesterol 18, HDL Cholesterol 43 06/20/19 09:50: Iron 11 L, TIBC 467 H 06/20/19 09:50: Blood Type O NEGATIVE, Antibody Screen NEGATIVE, Crossmatch See Detail Current Medications Acetaminophen (Tylenol) 650 mg PO Q6H PRN PRN PRN Reason: Pain Score 1-10/Temp > 100.7 F Allopurinol (Zyloprim) 300 mg PO DAILY [facility] Last Admin: 06/20/19 10:57 Dose: 300 mg Documented by: Amlodipine Besylate (Norvasc) 5 mg PO DAILY [facility] Last Admin: 06/20/19 10:58 Dose: 5 mg Documented by: Ascorbic Acid (Vitamin C) 1,000 mg PO DAILY [facility] Last Admin: 06/20/19 10:58 Dose: 1,000 mg Documented by: Aspirin (Ecotrin) 81 mg PO DAILY@0800 [facility] Last Admin: 06/20/19 09:00 Dose: 81 mg Documented by: Bisoprolol Fumarate (Zebeta) 10 mg PO DAILY [facility] Last Admin: 06/20/19 10:58 Dose: 10 mg Documented by: Hydralazine HCl (Apresoline Iv) 5 mg IV Q4H PRN PRN PRN Reason: BLOOD PRESSURE Last Admin: 06/19/19 22:20 Dose: 5 mg Documented by: Lisinopril (Zestril) 40 mg PO DAILY [facility] Last Admin: 06/20/19 10:57 Dose: 40 mg Documented by: Ondansetron HCl (Zofran) 4 mg IV Q8H PRN PRN PRN Reason: Nausea Oxycodone HCl (Oxyir) 5 mg PO Q4H PRN PRN PRN Reason: Pain Score 4-10/10 Sodium Chloride () 10 - 40 ml IV UD PRN PRN Reason: SALINE FLUSH Last Admin: 06/19/19 19:29 Dose: 10 ml Documented by: Thyroid ([place] Thyroid) 30 mg PO DAILY [facility] Last Admin: 06/20/19 10:58 Dose: 30 mg Documented by: Medical Necessity - Tobacco Use Smoking Status: Never smoker Tobacco Use: Non-smoker Assessment/Plan 1. Dyspnea on exertion, suspect multifactorial due to anemia as well as possible CHF- CXR unremarkable. BNP 645. Troponin negative. TSH, mag normal. Echocardiogram completed, report pending. Patient did receive IV Lasix x1. Oxygen is stable on room air. She denies significant shortness of breath currently. 2. Acute on chronic anemia, iron deficiency anemia-suspect contributing to #1. On iron supplementation however iron level 11, TIBC 467, consistent with iron deficiency. Trend CBC. Patient has plans for outpatient colonoscopy. 2 units PRBC ordered. Trend H&H. Check stool for occult blood. Patient has never had a colonoscopy. 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 Patient has been wearing pad daily with intermittent bleeding and discharge. Question whether this could be vaginal bleeding. Rectal exam without any obvious findings. External hemorrhoids without inflammation or active bleeding. If patient's hemoglobin continues to trend down, consider further inpatient evaluation in regards to anemia. Otherwise, will continue outpatient follow-up. 3. Hypertension-patient reports recently difficult to control. Continue amlodipine, lisinopril, beta-anneliese. PRN hydralazine for systolic blood pressure greater than 160. 4. EDDIE-patient previously prescribed CPAP which she does not wear. Reports she has CPAP at home and does not sure where it is located. Outpatient follow-up with pulmonary medicine, patient follows with Dr. Phan. 5. Hypothyroidism-continue home [place] Thyroid regimen. 6. Gout-continue allopurinol regimen. DVT Prophylaxis-SCDs This patient was seen by CRISTA Olmedo under the supervision of Dr. Pena.
[2019-06-20] MEDS: 0.9% Saline Lock 10 ML Syringe IV ×2 (19:13→19:53)
[2019-06-20] MEDS: Furosemide 20 MG/2 ML VIAL IV (19:13)
[2019-06-20] MEDS: hydrALAZINE 20 MG/ML Vial 5 MG IV (23:06)
[2019-06-20] MEDS: Acetaminophen 325 MG Tablet 650 MG PO (23:07)
[2019-06-21] VITALS (16 sets, daily range): BP systolic 131–160; BP diastolic 66–88; PULSE 62–77; RESP 14–18; TEMP 36.5–37.2; O2SAT 93–97; BMI 35.6
[2019-06-21 07:26] LABS: Hematocrit 29.2 % (37-47); Hemoglobin 8.9 g/dL (12.0-15.0); Mean Corp Hgb Conc 30.5 g/dL (32-36); Mean Corpuscular Hgb 23.1 pg (27.0-32.0); Mean Corpuscular Volume 75.8 fL (81-99); Mean Platelet Vol. 10.9 fl (6.2-12.0); Platelet Count 195 K/mm3 (150-450); RBC Distribution Width CV 17.5 % (11.6-14.6); RBC Distribution Width SD 47.8 fl (35.1-43.9); Red Blood Count 3.85 M/mm3 (4.2-5.4); White Blood Count 3.2 K/mm3 (4.4-11.0)
[2019-06-21 07:43] LABS: Anion Gap 5 (5-15); BUN 13 mg/dL (7-18); BUN/Creat Ratio 22.4 RATIO (10-20); Calcium,Total 8.3 mg/dL (8.5-10.1); Chloride 105 mmol/L (98-107); Creatinine, Serum 0.58 mg/dL (0.55-1.02); EST Glomerular Filtration Rate 107 mL/min (>60); Est Glom Filt Rate - Afr Amer 130 mL/min (>60); Glucose 100 mg/dL (74-106); Sodium Level 140 mmol/L (136-145)
[2019-06-21] MEDS: 0.9% Saline Lock 10 ML Syringe IV ×3 (09:38→21:48)
[2019-06-21] MEDS: Bisoprolol Fumarate 5 MG Tablet 10 MG PO (09:39)
[2019-06-21] MEDS: Thyroid 15 MG Tablet 30 MG PO (09:39)
[2019-06-21] MEDS: Ascorbic Acid 500 MG Tablet 1000 MG PO (09:40)
[2019-06-21] MEDS: Allopurinol 300 MG Tablet PO (09:40)
[2019-06-21] MEDS: amLODIPine 5 MG Tablet PO (09:40)
[2019-06-21] MEDS: Lisinopril 40 MG Tablet PO (09:41)
--- NOTE | 2019-06-21 10:29 | PCM.PROGNOTE ---
Subjective: Patient seen and examined. Denies further shortness of breath. Denies lightheadedness. Patient reports anxiety over upper and lower scope which is planned for tomorrow morning. She denies significant blood in stool. - Physical Exam Vitals/I&O's: Vital Signs Temp Pulse Resp BP Pulse Ox 98.2 F 74 15 160/88 H 96 06/21/19 09:47 06/21/19 09:47 06/21/19 09:47 06/21/19 09:47 06/21/19 09:47 Oxygen Delivery Method Room Air Weight: 227 lb 1.218 oz Body Mass Index (BMI) 35.6 Orthostatic Vital Signs Start: 06/20/19 06:01 Freq: q24h Status: Active Protocol: Activity Type Activity Date Activity User E-Sign Co-Sign Detail Recorded Client Recorded Date Recorded By Document 06/21/19 05:06 LUCY [id number] 06/21/19 05:10 LUCY 06/21/19 05:06 Orthostatic Vitals Standing -Blood Pressure (90/60-120/80) 157/83 H -Extremity Use Left Arm -Pulse Rate (60-100) 72 Sitting -Blood Pressure (90/60-120/80) 155/83 H -Extremity Use Left Arm -Pulse Rate (60-100) 68 Lying -Blood Pressure (90/60-120/80) 147/69 H -Extremity Use Left Arm -Pulse Rate (60-100) 63 Intake and Output for Last 24 Hours 06/19/19 06/20/19 06/21/19 23:59 23:59 23:59 Intake Total 595 / 595 1510 / 1510 Output Total 2250 / 2250 3500 / 3500 Balance 595 / -305 -740 / -740 -3500 / -3500 General: Alert, Oriented x3, Cooperative HEENT: Atraumatic, PERRLA, EOMI, Normocephalic Neck: Supple, No JVD, Negative Carotid Bruits Lungs: Clear to auscultation, Normal air movement Cardiovascular: Regular rate, No murmurs Abdomen: Bowel Sounds Present, Soft, Non Tender, Non-Distended Extremities: No clubbing, No cyanosis, No edema, Capillary Refill Less than 3 Seconds Skin: No rashes, No breakdown Musculoskeletal: No Tenderness to Palpation of Joints or Extremities Neurological: Cranial nerves II-XII grossly intact, Neuro grossly intact Psych/Mental Status: Normal Affect, Appropriate Microbiology Past 72 Hours 06/19/19 15:30 Mucosa - Nose Influenza Types A,B Direct FA (HILARIA) - Final Laboratory Results 06/20/19 09:50: Iron 11 L, TIBC 467 H 06/20/19 09:50: Blood Type O NEGATIVE, Antibody Screen NEGATIVE, Crossmatch See Detail 06/20/19 09:50: Crossmatch See Detail 06/21/19 06:04: WBC 3.2 L, RBC 3.85 L, Hgb 8.9 L, Hct 29.2 L, MCV 75.8 L, MCH 23.1 L, MCHC 30.5 L, RDW Std Deviation 47.8 H, RDW Coeff of Rex 17.5 H, Plt Count 195, MPV 10.9 06/21/19 06:04: Sodium 140, Potassium 3.0 L, Chloride 105, Carbon Dioxide 30.0, Anion Gap 5, BUN 13, Creatinine 0.58, Estim Creat Clear Calc 44.80, Est GFR (MDRD) Af Amer 130, Est GFR (MDRD) Non-Af 107, BUN/Creatinine Ratio 22.4 H, Glucose 100, Calcium 8.3 L Current Medications Acetaminophen (Tylenol) 650 mg PO Q6H PRN PRN PRN Reason: Pain Score 1-10/Temp > 100.7 F Last Admin: 06/20/19 23:07 Dose: 650 mg Documented by: Allopurinol (Zyloprim) 300 mg PO DAILY [facility] Last Admin: 06/21/19 09:40 Dose: 300 mg Documented by: Amlodipine Besylate (Norvasc) 5 mg PO DAILY [facility] Last Admin: 06/21/19 09:40 Dose: 5 mg Documented by: Ascorbic Acid (Vitamin C) 1,000 mg PO DAILY [facility] Last Admin: 06/21/19 09:40 Dose: 1,000 mg Documented by: Aspirin (Ecotrin) 81 mg PO DAILY@0800 [facility] Last Admin: 06/21/19 09:35 Dose: Not Given Documented by: Bisoprolol Fumarate (Zebeta) 10 mg PO DAILY [facility] Last Admin: 06/21/19 09:39 Dose: 10 mg Documented by: Hydralazine HCl (Apresoline Iv) 5 mg IV Q4H PRN PRN PRN Reason: BLOOD PRESSURE Last Admin: 06/20/19 23:06 Dose: 5 mg Documented by: Lisinopril (Zestril) 40 mg PO DAILY [facility] Last Admin: 06/21/19 09:41 Dose: 40 mg Documented by: Ondansetron HCl (Zofran) 4 mg IV Q8H PRN PRN PRN Reason: Nausea Oxycodone HCl (Oxyir) 5 mg PO Q4H PRN PRN PRN Reason: Pain Score 4-10/10 Sodium Chloride () 10 - 40 ml IV UD PRN PRN Reason: SALINE FLUSH Last Admin: 06/21/19 09:38 Dose: 10 ml Documented by: Thyroid ([place] Thyroid) 30 mg PO DAILY [facility] Last Admin: 06/21/19 09:39 Dose: 30 mg Documented by: Medical Necessity - Tobacco Use Smoking Status: Never smoker Tobacco Use: Non-smoker Assessment/Plan 1. Acute on chronic anemia, iron deficiency anemia-On iron supplementation however iron level 11, TIBC 467, consistent with iron deficiency. Trend CBC. S/P 4 units PRBC ordered. Trend H&H. Check stool for occult blood. General surgery consult placed. Plan for upper and lower scope tomorrow. Bowel prep ordered. 2. Dyspnea on exertion, suspect secondary to 1- CXR unremarkable. BNP 645. Troponin negative. TSH, mag normal. Echocardiogram demonstrates an EF of 65%. Patient reports improvement in shortness of breath. 3. Hypertension-patient reports recently difficult to control. Continue amlodipine, lisinopril, beta-anneliese. PRN hydralazine for systolic blood pressure greater than 160. 4. EDDIE-patient previously prescribed CPAP which she does not wear. Reports she has CPAP at home and does not sure where it is located. Outpatient follow-up with pulmonary medicine, patient follows with Dr. Phan. 5. Hypothyroidism-continue home [place] Thyroid regimen. 6. Gout-continue allopurinol regimen. DVT Prophylaxis-SCDs This patient was seen by CRISTA Olmedo under the supervision of Dr. Pena.
--- NOTE | 2019-06-21 10:40 | CON.PCM_ITS ---
Problem List (1) Anemia Status: Chronic Qualifiers: Anemia type: unspecified type Qualified Code(s): D64.9 - Anemia, unspecified (2) Rectal bleeding Status: Acute Reason for Consult Date of Consultation: 06/21/19 History of Present Illness: The patient is a 78 y/o F w/ PMHx: EDDIE on CPAP although has not been using, HTN, Hypothyroidism, Chronic Fe Deficiency Anemia on chronic Fe supplementation, Gout, History of Significant prior hemorrhoidal bleeding who presents to the [facility] ED on 06/19/19 w/ history of progressively worsening dyspnea over the last several months, worse with exertion, increased with also laying down however in addition to onset of upper aching, diffuse pressor sensation although no specific discomfort in the chest nor any palpitations, diaphoresis, lightheadedness or dizziness with recent outpatient PCP evaluation with noted mid April hemoglobin in the 9 range with ongoing occasional bright red blood, primarily with wiping but no significant rectal bleeding and ongoing chronic dark stools unchanged secondary to ongoing iron therapy per her report however not improving prompting ED presentation for evaluation. Work-up in the ED included T 90.1, heart 75, BP 146/70, respiratory rate 20, 96% on room air, CBC with WC 3.2, hemoglobin 7.9, platelet 200 with no left shift evident, BMP with potassium 3.4, calcium 8.3, troponin less than 0.015, EKG was sinus rhythm with no acute evidence of ischemia, chest x-ray with no acute cardiopulmonary findings. In ED patient ministered aspirin 324 mg p.o. x1 as well as normal saline per ED physician. Past Medical History Past Medical History (Chronic Problems): Chronic Problems Gout (Chronic) Hypertension (Chronic) EDDIE (obstructive sleep apnea) (Chronic) Hypothyroidism (Chronic) Anemia (Chronic) Allergies Penicillins [PCN] Allergy (Verified 06/19/19 14:49) Shortness of breath Home Medications: Ambulatory Orders Medication Instructions Recorded Allopurinol 300 mg PO DAILY 06/19/19 Amlodipine [Norvasc] 5 mg PO DAILY 06/19/19 Ascorbic Acid [Vitamin C with Aubrie 1,000 mg PO DAILY 06/19/19 Hips] B,C/Folic/Zinc/Copper Ox/Vit E 1 tab PO DAILY 06/19/19 [Stress B-Complex Tablet] Bisoprolol Fumarate 10 mg PO DAILY 06/19/19 Lisinopril 40 mg PO DAILY 06/19/19 Multivit-Min/Iron/Folic/Lutein 1 tab PO DAILY 06/19/19 [Centrum Silver Women Tablet] [place]-3 Fatty Acids [[place]-3] 1,000 mg PO DAILY 06/19/19 Thyroid,Pork [[place] Thyroid] 30 mg PO DAILY 06/19/19 Ubidecarenone [Co Q-10] 100 mg PO DAILY 06/19/19 Surgical History: appendectomy, cholecystectomy, tonsillectomy, - - Right knee arthroscopy Psychiatric History: No pertinent psych hx 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 Lives: Alone Smoking Status: Never smoker Tobacco Use: Non-smoker Alcohol: None Drugs: None - *Family History Maternal History Items: Heart Disease Paternal History Items: Stroke Review of Systems Cardiovascular: Denies: Chest Pain, Chest Pressure, Chest Tightness, Palpitations Respiratory: Denies: Cough, Hemoptysis, Shortness of breath at rest, Shortness of breath upon exertion, Wheezing Gastrointestinal: Denies: Abdominal Pain, Constipation, Diarrhea, Hematemesis, Nausea, Melena, Vomiting Patient Problems: Active and Suspected Problems Rectal bleeding (Acute) - Physical Exam Vitals/I&O's: Vital Signs Temp Pulse Resp BP Pulse Ox 98.2 F 74 15 160/88 H 96 06/21/19 09:47 06/21/19 09:47 06/21/19 09:47 06/21/19 09:47 06/21/19 09:47 Oxygen Delivery Method Room Air Weight: 227 lb 1.218 oz Body Mass Index (BMI) 35.6 Orthostatic Vital Signs Start: 06/20/19 06:01 Freq: q24h Status: Active Protocol: Activity Type Activity Date Activity User E-Sign Co-Sign Detail Recorded Client Recorded Date Recorded By Document 06/21/19 05:06 LUCY [id number] 06/21/19 05:10 LUCY 06/21/19 05:06 Orthostatic Vitals Standing -Blood Pressure (90/60-120/80) 157/83 H -Extremity Use Left Arm -Pulse Rate (60-100) 72 Sitting -Blood Pressure (90/60-120/80) 155/83 H -Extremity Use Left Arm -Pulse Rate (60-100) 68 Lying -Blood Pressure (90/60-120/80) 147/69 H -Extremity Use Left Arm -Pulse Rate (60-100) 63 Intake and Output for Last 24 Hours 06/19/19 06/20/19 06/21/19 23:59 23:59 23:59 Intake Total 595 / 595 1510 / 1510 Output Total 2250 / 2250 3500 / 3500 Balance 595 / -305 -740 / -740 -3500 / -3500 General: Alert, Oriented x3 Lungs: Clear to auscultation Cardiovascular: Regular rate, Regular Rhythm, No murmurs Abdomen: Bowel Sounds Present, Soft, Non Tender, Non-Distended Microbiology Past 72 Hours 06/19/19 15:30 Mucosa - Nose Influenza Types A,B Direct FA (HILARIA) - Final Laboratory Results 06/20/19 09:50: Blood Type O NEGATIVE, Antibody Screen NEGATIVE, Crossmatch See Detail 06/20/19 09:50: Crossmatch See Detail 06/21/19 06:04: WBC 3.2 L, RBC 3.85 L, Hgb 8.9 L, Hct 29.2 L, MCV 75.8 L, MCH 23.1 L, MCHC 30.5 L, RDW Std Deviation 47.8 H, RDW Coeff of Rex 17.5 H, Plt Count 195, MPV 10.9 06/21/19 06:04: Sodium 140, Potassium 3.0 L, Chloride 105, Carbon Dioxide 30.0, Anion Gap 5, BUN 13, Creatinine 0.58, Estim Creat Clear Calc 44.80, Est GFR (MDRD) Af Amer 130, Est GFR (MDRD) Non-Af 107, BUN/Creatinine Ratio 22.4 H, Glucose 100, Calcium 8.3 L Current Medications Acetaminophen (Tylenol) 650 mg PO Q6H PRN PRN PRN Reason: Pain Score 1-10/Temp > 100.7 F Last Admin: 06/20/19 23:07 Dose: 650 mg Documented by: Allopurinol (Zyloprim) 300 mg PO DAILY [facility] Last Admin: 06/21/19 09:40 Dose: 300 mg Documented by: Amlodipine Besylate (Norvasc) 5 mg PO DAILY [facility] Last Admin: 06/21/19 09:40 Dose: 5 mg Documented by: Ascorbic Acid (Vitamin C) 1,000 mg PO DAILY [facility] Last Admin: 06/21/19 09:40 Dose: 1,000 mg Documented by: Aspirin (Ecotrin) 81 mg PO DAILY@0800 [facility] Last Admin: 06/21/19 09:35 Dose: Not Given Documented by: Bisacodyl (Dulcolax) 20 mg PO 1400 ONE Stop: 06/21/19 14:01 Bisoprolol Fumarate (Zebeta) 10 mg PO DAILY [facility] Last Admin: 06/21/19 09:39 Dose: 10 mg Documented by: Hydralazine HCl (Apresoline Iv) 5 mg IV Q4H PRN PRN PRN Reason: BLOOD PRESSURE Last Admin: 06/20/19 23:06 Dose: 5 mg Documented by: Lisinopril (Zestril) 40 mg PO DAILY [facility] Last Admin: 06/21/19 09:41 Dose: 40 mg Documented by: Ondansetron HCl (Zofran) 4 mg IV Q8H PRN PRN PRN Reason: Nausea Oxycodone HCl (Oxyir) 5 mg PO Q4H PRN PRN PRN Reason: Pain Score 4-10/10 Polyethylene Glycol (Clearlax For Bowel Prep) 0 bottle PO DAILY@1600 ONE Stop: 06/21/19 16:01 Sodium Chloride () 10 - 40 ml IV UD PRN PRN Reason: SALINE FLUSH Last Admin: 06/21/19 09:38 Dose: 10 ml Documented by: Thyroid ([place] Thyroid) 30 mg PO DAILY [facility] Last Admin: 06/21/19 09:39 Dose: 30 mg Documented by: Assessment/Plan All Active Problems Rectal bleeding (Acute) Assessment: Anemia Plan: At this point we are going to get her scheduled for both an upper and lower endoscopy. Risk benefits include bleeding possible injury to the intestine which could require further operations have been reviewed. Patient is willing to proceed.
[2019-06-21] MEDS: Bisacodyl 5 MG Tablet 20 MG PO (15:52)
[2019-06-21] MEDS: Polyethylene Glycol 3350 BOWEL PREP PO (17:15)
[2019-06-22] VITALS (10 sets, daily range): BP systolic 90–173; BP diastolic 45–78; PULSE 59–76; RESP 16–18; TEMP 36.4–37; O2SAT 93–98
--- NOTE | 2019-06-22 | EGD_PTH ---
PATIENT: IRINA BAEZA LOC: PCU U#:[id number] AGE/SX: 78/F ROOM: [facility] RE06/21/[address]: Dr. Wing Pena DO : 1940 BED: 1 DIS: 06/22/2019 SPEC #: [id number] RECD: 06/22/19 13:30 STATUS: EDU REJese #: [id number] ARNOLDO: 06/22/19 00:[address]: Jermaine Álvarez DEPT: SURGICAL PATHOLOGY RECD BY: Oneil Frye ENTERED: 06/22/19 14:08 SP TYPE: EGD BIOPSY OT DR: MD Dr. Whitney García DO Dr. Mark Tereletsky, DO Tissues: A - Gastric mucous membrane B - Rectum, NOS Procedures: Surgery Specimen Level IV HEADER OPERATION: [place]oscopy, [place] [place] DIAGNOSIS: Chronic anemia, rectal bleeding TISSUE SUBMITTED: A - Antrum biopsy for histo and H. pylori, B - Rectal polyp biopsy MICROSCOPIC DIAGNOSIS A. Antrum biopsy: Mild gastritis. See microscopic description and comment. B. Rectal polyp, biopsy: Fragments of colonic mucosa with focal hyperplastic changes. SJ:jonah 06/23/19 COMMENT A. The results of immunohistochemistry for Helicobacter pylori will be reported separately ([id number]). MICROSCOPIC DESCRIPTION Slides are reviewed. A. The specimen shows fragments of gastric mucosa with chronic inflammatory cell infiltrates in the lamina propria consisting of lymphocytes and plasma cells, consistent with mild chronic gastritis. GROSS DESCRIPTION A - Received in fixative is one container labeled with the patient's name and designated antrum biopsy. The specimen consists of one irregular fragment of light waldron soft tissue that measures 0.8 x 0.2 x 0.1 cm. The specimen is totally submitted in one cassette. B - Received in fixative is one container labeled with the patient's name and designated rectal polyp biopsy. The specimen consists of two irregular fragments of light waldron soft tissue that in aggregate measure 0.4 x 0.3 x 0.1 cm. The specimen is totally submitted in one cassette. / ANTONIO:jonah 06/22/19 TC:3 CPT: 13456 x2
[2019-06-22] MEDS: 0.9% Saline Lock 10 ML Syringe IV ×4 (05:23→08:58)
--- NOTE | 2019-06-22 05:55 | EKG12_ITS ---
Test Reason : AM EKG Blood Pressure : / mmHG Vent. Rate : 062 BPM Atrial Rate : 062 BPM P-R Int : 150 ms QRS Dur : 092 ms QT Int : 416 ms P-R-T Axes : 016 -20 020 degrees QTc Int : 422 ms Normal sinus rhythm Leftward Morris Inferior MO, age undetermined, connot be excluded Confirmed by TEE MORENO, NORMA ([id number]), content editor EMILY MONTEZ ([id number]) on 06/24/2019 1:47:35 PM Referred By: DR JACINTO Confirmed By:NORMA OLIVEIRA MD
[2019-06-22 06:13] LABS: International Normalized Ratio 1.1; Prothrombin Time (Protime)PT. 13.5 SECONDS (11.7-14.9)
[2019-06-22 06:14] LABS: Partial Thromboplast Time 25.5 Seconds (24.1-36.2)
[2019-06-22 06:15] LABS: Hematocrit 37.2 % (37-47); Hemoglobin 11.3 g/dL (12.0-15.0); Mean Corp Hgb Conc 30.4 g/dL (32-36); Mean Corpuscular Hgb 23.3 pg (27.0-32.0); Mean Corpuscular Volume 76.7 fL (81-99); Mean Platelet Vol. 10.3 fl (6.2-12.0); Platelet Count 215 K/mm3 (150-450); RBC Distribution Width CV 17.7 % (11.6-14.6); RBC Distribution Width SD 48.2 fl (35.1-43.9); Red Blood Count 4.85 M/mm3 (4.2-5.4); White Blood Count 3.9 K/mm3 (4.4-11.0)
[2019-06-22 06:37] LABS: Anion Gap 8 (5-15); BUN 6 mg/dL (7-18); BUN/Creat Ratio 9.4 RATIO (10-20); Calcium,Total 8.8 mg/dL (8.5-10.1); Chloride 107 mmol/L (98-107); Creatinine, Serum 0.64 mg/dL (0.55-1.02); EST Glomerular Filtration Rate 96 mL/min (>60); Est Glom Filt Rate - Afr Amer 116 mL/min (>60); Glucose 101 mg/dL (74-106); Potassium 3.6 mmol/L (3.5-5.1); Sodium Level 139 mmol/L (136-145)
[2019-06-22] MEDS: hydrALAZINE 20 MG/ML Vial 5 MG IV (08:57)
[2019-06-22] MEDS: Lactated Ringers 1,000 ML 100 ML IV (10:24)
[2019-06-22] MEDS: Glucagon 1 MG/ML Syringe (11:38)
--- NOTE | 2019-06-22 11:53 | OP.EGD_ITS ---
Patient Name: Meir García Procedure Date: 06/22/2019 11:15 AM Date of : 1940 Age: 78 Procedure: Upper GI endoscopy Indications: Iron deficiency anemia secondary to chronic blood loss Providers: Jermaine Álvarez MD Medicines: See the Anesthesia note for documentation of the administered medications Patient Profile: This is a 78 year old female. Refer to note in patient chart for documentation of history and physical. Complications: No immediate complications. Procedure: Pre-Anesthesia Assessment: - Prior to the procedure, a History and Physical was performed, and patient medications and allergies were reviewed. The patient's tolerance of previous anesthesia was also reviewed. The risks and benefits of the procedure and the sedation options and risks were discussed with the patient. All questions were answered, and informed consent was obtained. Prior Anticoagulants: The patient has taken no previous anticoagulant or antiplatelet agents. ASA Grade Assessment: III - A patient with severe systemic disease. After reviewing the risks and benefits, the patient was deemed in satisfactory condition to undergo the procedure. After obtaining informed consent, the endoscope was passed under direct vision. Throughout the procedure, the patient's blood pressure, pulse, and oxygen saturations were monitored continuously. The gastroscope was introduced through the mouth, and advanced to the second part of duodenum. The upper GI endoscopy was accomplished without difficulty. The patient tolerated the procedure well. Scope In: 11:22:57 AM Scope Out: 11:26:17 AM Total Procedure Duration Time 0 hours 3 minutes 20 seconds Findings: A medium-sized hiatal hernia was present. No biopsies or other specimens were collected for this exam. The Z-line was regular and was found 39 cm from the incisors. The entire examined stomach was normal. Biopsies were taken with a cold forceps for Helicobacter pylori testing. The examined duodenum was normal. No biopsies or other specimens were collected for this exam. Impression: - Medium-sized hiatal hernia. No specimens collected. - Z-line regular, 39 cm from the incisors. - Normal stomach. Biopsied. - Normal examined duodenum. No specimens collected. Recommendation: - Discharge patient to home. - Resume previous diet. - Continue present medications. - Await pathology results. - Repeat upper endoscopy (date not yet determined) for surveillance. - Return to my office in 1 week. Procedure Code(s): --- Professional --- 08753, Esophagogastroduodenoscopy, flexible, transoral; with biopsy, single or multiple Diagnosis Code(s): --- Professional --- K44.9, Diaphragmatic hernia without obstruction or gangrene D50.0, Iron deficiency anemia secondary to blood loss (chronic) CPT copyright 2017 [employer]. All rights reserved. The codes documented in this report are preliminary and upon photogrammetric compilation specialist review may be revised to meet current compliance requirements. MD Jermaine Long MD 06/22/2019 11:52:39 AM This report has been signed electronically. Number of Addenda: 0 Note Initiated On: 06/22/2019 11:15 AM
--- NOTE | 2019-06-22 11:53 | OP.CCLET_ITS ---
06/22/2019 Whitney Demarco [address] [facility] [facility] [address] [place] [address] Re : Upper GI endoscopy procedure for Meir García Dear Dr. Demarco This procedure was performed on Saturday, June 22, 2019. My impressions and recommendations are as follows: Impressions : - Medium-sized hiatal hernia. No specimens collected. - Z-line regular, 39 cm from the incisors. - Normal stomach. Biopsied. - Normal examined duodenum. No specimens collected. Recommendations : - Discharge patient to home. - Resume previous diet. - Continue present medications. - Await pathology results. - Repeat upper endoscopy (date not yet determined) for surveillance. - Return to my office in 1 week. My findings are described in the full procedure note, which is enclosed. If I can be of further assistance, please feel free to contact me at Doctor phone number(s): , Fax: [phone], Work: . Sincerely, MD Jermaine Long MD 06/22/2019 11:52:39 AM This report has been signed electronically.
--- NOTE | 2019-06-22 11:55 | OP.COLON_ITS ---
Patient Name: Meir García Procedure Date: 06/22/2019 11:28 AM Date of : 1940 Age: 78 Procedure: Colonoscopy Indications: Iron deficiency anemia secondary to chronic blood loss Providers: Jermaine Álvarez MD Medicines: See the Anesthesia note for documentation of the administered medications Patient Profile: This is a 78 year old female. Refer to note in patient chart for documentation of history and physical. Last Colonoscopy: none. The patient's first colonoscopy is today. Complications: No immediate complications. Procedure: Pre-Anesthesia Assessment: - Prior to the procedure, a History and Physical was performed, and patient medications and allergies were reviewed. The patient's tolerance of previous anesthesia was also reviewed. The risks and benefits of the procedure and the sedation options and risks were discussed with the patient. All questions were answered, and informed consent was obtained. Prior Anticoagulants: The patient has taken no previous anticoagulant or antiplatelet agents. ASA Grade Assessment: III - A patient with severe systemic disease. After reviewing the risks and benefits, the patient was deemed in satisfactory condition to undergo the procedure. - Prior to the procedure, a History and Physical was performed, and patient medications and allergies were reviewed. The patient's tolerance of previous anesthesia was also reviewed. The risks and benefits of the procedure and the sedation options and risks were discussed with the patient. All questions were answered, and informed consent was obtained. Prior Anticoagulants: The patient has taken no previous anticoagulant or antiplatelet agents. ASA Grade Assessment: III - A patient with severe systemic disease. After reviewing the risks and benefits, the patient was deemed in satisfactory condition to undergo the procedure. After I obtained informed consent, the scope was passed under direct vision. Throughout the procedure, the patient's blood pressure, pulse, and oxygen saturations were monitored continuously. The adult colonoscope was introduced through the anus and advanced to the cecum, identified by appendiceal orifice and ileocecal valve. The colonoscopy was performed without difficulty. The patient tolerated the procedure well. The quality of the bowel preparation was good. Scope In: 11:28:57 AM Scope Withdrawal Time 0 hours 7 minutes 1 second Scope Out: 11:44:15 AM Total Procedure Duration Time 0 hours 15 minutes 18 seconds Findings: Non-bleeding external and internal hemorrhoids were found during retroflexion. The hemorrhoids were moderate, large and Grade II (internal hemorrhoids that prolapse but reduce spontaneously). Multiple small and large-mouthed diverticula were found in the sigmoid colon and descending colon. No biopsies or other specimens were collected for this exam. A 5 mm polyp was found in the recto-sigmoid colon. The polyp was sessile. The polyp was removed with a jumbo cold forceps. Resection and retrieval were complete. The exam was otherwise without abnormality. Impression: - Non-bleeding external and internal hemorrhoids. - Diverticulosis in the sigmoid colon and in the descending colon. No specimens collected. - One 5 mm polyp at the recto-sigmoid colon, removed with a jumbo cold forceps. Resected and retrieved. - The examination was otherwise normal. Recommendation: - Discharge patient to home. - Resume previous diet. - Continue present medications. - Await pathology results. - Repeat colonoscopy date to be determined after pending pathology results are reviewed for surveillance. - Refer to a colo-rectal surgeon at appointment to be scheduled. Procedure Code(s): --- Professional --- 05968, Colonoscopy, flexible; with biopsy, single or multiple Diagnosis Code(s): --- Professional --- K64.1, Second degree hemorrhoids D12.7, Benign neoplasm of rectosigmoid junction D50.0, Iron deficiency anemia secondary to blood loss (chronic) K57.30, Diverticulosis of large intestine without perforation or abscess without bleeding CPT copyright 2017 [employer]. All rights reserved. The codes documented in this report are preliminary and upon adjunct nursing faculty review may be revised to meet current compliance requirements. MD Jermaine Long MD 06/22/2019 11:55:23 AM This report has been signed electronically. Number of Addenda: 0 Note Initiated On: 06/22/2019 11:28 AM
--- NOTE | 2019-06-22 11:55 | OP.CCLET_ITS ---
06/22/2019 Whitney Demarco [address] [facility] [place] [address] Re : Colonoscopy procedure for Meir García Dear Dr. Demarco This procedure was performed on Saturday, June 22, 2019. My impressions and recommendations are as follows: Impressions : - Non-bleeding external and internal hemorrhoids. - Diverticulosis in the sigmoid colon and in the descending colon. No specimens collected. - One 5 mm polyp at the recto-sigmoid colon, removed with a jumbo cold forceps. Resected and retrieved. - The examination was otherwise normal. Recommendations : - Discharge patient to home. - Resume previous diet. - Continue present medications. - Await pathology results. - Repeat colonoscopy date to be determined after pending pathology results are reviewed for surveillance. - Refer to a colo-rectal surgeon at appointment to be scheduled. My findings are described in the full procedure note, which is enclosed. If I can be of further assistance, please feel free to contact me at Doctor phone number(s): , Fax: [phone], Work: . Sincerely, MD Jermaine Long MD 06/22/2019 11:55:23 AM This report has been signed electronically.
--- NOTE | 2019-06-22 12:04 | CASEMGMT ---
Case Management Progress Note: This gag writer to patient bedside to complete initial RNCM assessment, patient not in room and currently in procedure. RNCM to continue to follow for assessment and care coordination needs. Mey [place], ROQUECM
--- NOTE | 2019-06-22 12:45 | IMM_PTH ---
PATIENT: IRINA BAEZA LOC: PCU U#:[id number] AGE/SX: 78/F ROOM: [facility] RE06/21/[address]: Dr. Wing Pena DO : 1940 BED: 1 DIS: 06/22/2019 SPEC #: [id number] RECD: 06/22/19 14:27 STATUS: [place] REQ #: [id number] ARNOLDO: 06/22/19 12:[address]: Jermaine Álvarez DEPT: IMMUNOHISTOCHEMISTRY RECD BY: Shonda Gamboa ENTERED: 06/22/19 14:29 SP TYPE: IMMUNO OTHR DR: MD Dr. Whitney García DO Dr. Mark Tereletsky, DO Tissues: A - Stomach, NOS Procedures: H Pylori (initial) PHYSICIAN & INSTITUTION [place] [address] SPECIMEN INFORMATION: Tissue Source: A - Antrum biopsy Clinical Info: Chronic anemia, rectal bleeding Specimen Number: [id number] CPT code: 04423 METHODOLOGY: Deparaffinized sections of prefer/formalin-fixed tissue or PAP/DQ stained slides are incubated with monoclonal/polyclonal antibodies/oligonucleotide probes. Localization is made via biotin free immunoperoxidase method. Appropriate controls are performed and reacted as expected. Results on target cell population are indicated in the following table: RESULTS: ANTIBODY / CLONE RESULT Block A H Pylori (polyclonal) negative These tests were developed and their performance characteristics determined by [facility]. They may not have been cleared or approved by the U.S. Food and Drug Administration. The FDA has determined that such clearance or approval is not necessary. INTERPRETATION: A. Antrum biopsy: Negative for Helicobacter pylori organisms. SJ:jonah 06/23/19
--- NOTE | 2019-06-22 13:04 | DCINST_ITS ---
- Discharge Diagnoses Current Active Problems: Current Active and Chronic Problems Gout (Chronic) Hypertension (Chronic) EDDIE (obstructive sleep apnea) (Chronic) Hypothyroidism (Chronic) Anemia (Chronic) Rectal bleeding (Acute) You will use the following diet at home:: No restrictions Discharge Activity: Return to Normal Activity Call your doctor if you observe: Shortness of breath, Dizziness, Fainting spells, Chest pain Allergies/Adverse Reactions: Allergies Penicillins [PCN] Allergy (Verified 06/19/19 14:49) Shortness of breath Medications to take at Discharge Allopurinol 300 mg PO DAILY 06/19/19 Amlodipine [Norvasc] 5 mg PO DAILY 06/19/19 Ascorbic Acid [Vitamin C with Aubrie Hips] 1,000 mg PO DAILY 06/19/19 B,C/Folic/Zinc/Copper Ox/Vit E [Stress B-Complex Tablet] 1 tab PO DAILY 06/19/19 Bisoprolol Fumarate 10 mg PO DAILY 06/19/19 Lisinopril 40 mg PO DAILY 06/19/19 Multivit-Min/Iron/Folic/Lutein [Centrum Silver Women Tablet] 1 tab PO DAILY 06/19/19 [place]-3 Fatty Acids [[place]-3] 1,000 mg PO DAILY 06/19/19 Thyroid,Pork [[place] Thyroid] 30 mg PO DAILY 06/19/19 Ubidecarenone [Co Q-10] 100 mg PO DAILY 06/19/19 Primary Care Physician: Whitney Demarco DO [Primary Care Provider] - Please follow up with your Primary Care Physician in: 3-5 Days Test Results: Test results from this visit will be discussed in further detail at your follow- up appointment, if applicable. Please Follow Up With: Jermaine Álvarez MD When: as needed, call for appt with rectal surgeon for hemorrhoid removal Proposed Discharge Date: 06/22/19
--- NOTE | 2019-06-22 13:07 | PCM.DC.SUM ---
Discharge Date and Diagnosis Date of Admission: 06/19/19 Date of Discharge: 06/22/19 - Primary Discharge Diagnosis Active and Suspected Problems 1. Acute on chronic anemia, iron deficiency anemia 2. Dyspnea on exertion, suspect secondary to #1 3. Hypertension 4. EDDIE 5. Hypothyroidism 6. Gout - Secondary Discharge Diagnosis Chronic Problems Gout (Chronic) Hypertension (Chronic) EDDIE (obstructive sleep apnea) (Chronic) Hypothyroidism (Chronic) Anemia (Chronic) Hospital Course and Treatment Imaging Results: Diagnostic Data Chest X-Ray 06/19/19 15:15 IMPRESSION: Normal portable chest. Electronically Signed: Johnathon Godoy, at 15:41 EST Tel , Service support , Dr. Álvarez- General surgery Operations: None Procedures: Colonoscopy, EGD Summary of Care Provided: The patient is a 78 year old F admitted 06/19/2019 due to shortness of breath. 1. Acute on chronic anemia, iron deficiency anemia- iron level 11, TIBC 467, consistent with iron deficiency. S/P 4 units PRBC. Trend H&H. General surgery consult placed. Patient underwent EGD and colonoscopy which showed no source of active bleeding. 1 polyp removed during colonoscopy. Patient has extensive internal and external hemorrhoids, no active bleeding noted. Patient referred by Dr. Álvarez to rectal surgeon for hemorrhoidectomy. Follow-up with primary care physician in 3 to 5 days. Recommend routine PRINCIPAL ASSOCIATE eval by PCP as well. Patient reports wearing pad daily due to ongoing bleeding. Iron replaced IV during admission. 2. Dyspnea on exertion, suspect secondary to #1- CXR unremarkable. BNP 645. Troponin negative. TSH, mag normal. Echocardiogram demonstrates an EF of 65%. Patient reports improvement in shortness of breath. 3. Hypertension- Continue amlodipine, lisinopril, beta-anneliese. 4. EDDIE-patient previously prescribed CPAP which she does not wear. Reports she has CPAP at home and does not sure where it is located. Outpatient follow-up with pulmonary medicine, patient follows with Dr. Phan. 5. Hypothyroidism-continue home [place] Thyroid regimen. 6. Gout-continue allopurinol regimen. General: Alert, Oriented x3, Cooperative HEENT: Atraumatic, PERRLA, EOMI, Normocephalic Neck: Supple, No JVD, Negative Carotid Bruits Lungs: Clear to auscultation, Normal air movement Cardiovascular: Regular rate, No murmurs Abdomen: Bowel Sounds Present, Soft, Non Tender, Non-Distended Extremities: No clubbing, No cyanosis, No edema, Capillary Refill Less than 3 Seconds Skin: No rashes, No breakdown Musculoskeletal: No Tenderness to Palpation of Joints or Extremities Neurological: Cranial nerves II-XII grossly intact, Neuro grossly intact Psych/Mental Status: Normal Affect, Appropriate Patient seen and examined prior to discharge. Physical assessment as noted above. Patient is stable for discharge with follow up recommendations as noted above. This patient was seen by CRISTA Olmedo under the supervision of Dr. Pena. - Physical Exam Vitals/I&O's: Vital Signs Temp Pulse Resp BP Pulse Ox 98.6 F 67 18 147/60 H 95 06/22/19 12:46 06/22/19 12:46 06/22/19 12:46 06/22/19 12:46 06/22/19 12:46 Oxygen Flow Rate (L/min) 2 Oxygen Delivery Method Room Air Weight: 227 lb 1.218 oz Body Mass Index (BMI) 35.6 Orthostatic Vital Signs Start: 06/20/19 06:01 Freq: q24h Status: Active Protocol: Activity Type Activity Date Activity User E-Sign Co-Sign Detail Recorded Client Recorded Date Recorded By Document 06/22/19 03:50 [facility] [id number] 06/22/19 04:03 AMMON 06/22/19 03:50 Orthostatic Vitals Standing -Blood Pressure (90/60-120/80) 168/78 H -Extremity Use Left Arm -Pulse Rate (60-100) 74 Sitting -Blood Pressure (90/60-120/80) 157/74 H -Extremity Use Left Arm -Pulse Rate (60-100) 72 Lying -Blood Pressure (90/60-120/80) 173/77 H -Extremity Use Left Arm -Pulse Rate (60-100) 69 Intake and Output for Last 24 Hours 06/20/19 06/21/19 06/22/19 23:59 23:59 23:59 Intake Total 1510 / 1510 2673 / 4573 2009 Output Total 2250 / 2250 4100 / 4100 Balance -740 / -740 -1427 / 473 2009 Microbiology Past 72 Hours 06/19/19 15:30 Mucosa - Nose Influenza Types A,B Direct FA (HILARIA) - Final Laboratory Results 06/20/19 09:50: Crossmatch See Detail 06/22/19 05:04: WBC 3.9 L, RBC 4.85, Hgb 11.3 L, Hct 37.2, MCV 76.7 L, MCH 23.3 L, MCHC 30.4 L, RDW Std Deviation 48.2 H, RDW Coeff of Rex 17.7 H, Plt Count 215, MPV 10.3 06/22/19 05:04: Sodium 139, Potassium 3.6, Chloride 107, Carbon Dioxide 24.0, Anion Gap 8, BUN 6 L, Creatinine 0.64, Estim Creat Clear Calc 44.80, Est GFR (MDRD) Af Amer 116, Est GFR (MDRD) Non-Af 96, BUN/Creatinine Ratio 9.4 L, Glucose 101, Calcium 8.8 06/22/19 05:04: PT 13.5, INR 1.1, APTT 25.5 Current Medications Acetaminophen (Tylenol) 650 mg PO Q6H PRN PRN PRN Reason: Pain Score 1-10/Temp > 100.7 F Last Admin: 06/20/19 23:07 Dose: 650 mg Documented by: Allopurinol (Zyloprim) 300 mg PO DAILY [facility] Last Admin: 06/21/19 09:40 Dose: 300 mg Documented by: Amlodipine Besylate (Norvasc) 5 mg PO DAILY [facility] Last Admin: 06/21/19 09:40 Dose: 5 mg Documented by: Ascorbic Acid (Vitamin C) 1,000 mg PO DAILY [facility] Last Admin: 06/21/19 09:40 Dose: 1,000 mg Documented by: Bisoprolol Fumarate (Zebeta) 10 mg PO DAILY [facility] Last Admin: 06/21/19 09:39 Dose: 10 mg Documented by: Hydralazine HCl (Apresoline Iv) 5 mg IV Q4H PRN PRN PRN Reason: BLOOD PRESSURE Last Admin: 06/22/19 08:57 Dose: 5 mg Documented by: Pantoprazole Sodium 40 mg/ (Sodium Chloride) 110 mls @ 330 mls/hr IV Q12 [facility] Last Infusion: 06/22/19 09:41 Dose: Infused Documented by: Lactated Ringer's () 1,000 mls @ 100 mls/hr IV .Q10H [facility] Last Admin: 06/22/19 10:24 Dose: 100 mls/hr Documented by: Iron Sucrose 200 mg/ Sodium (Chloride) 110 mls @ 220 mls/hr IV X1 ONE Stop: 06/22/19 13:30 Lisinopril (Zestril) 40 mg PO DAILY [facility] Last Admin: 06/21/19 09:41 Dose: 40 mg Documented by: Ondansetron HCl (Zofran) 4 mg IV Q8H PRN PRN PRN Reason: Nausea Oxycodone HCl (Oxyir) 5 mg PO Q4H PRN PRN PRN Reason: Pain Score 4-10/10 Sodium Chloride () 10 - 40 ml IV UD PRN PRN Reason: SALINE FLUSH Last Admin: 06/22/19 08:58 Dose: 10 ml Documented by: Thyroid ([place] Thyroid) 30 mg PO DAILY [facility] Last Admin: 06/21/19 09:39 Dose: 30 mg Documented by: Discharge Diet: No Restrictions Discharge Activity: Return to Normal Activity Call your doctor if you observe: Shortness of breath, Dizziness, Fainting spells, Chest pain Home Medications: Medications to take at Discharge Allopurinol 300 mg PO DAILY 06/19/19 Amlodipine [Norvasc] 5 mg PO DAILY 06/19/19 Ascorbic Acid [Vitamin C with Aubrie Hips] 1,000 mg PO DAILY 06/19/19 B,C/Folic/Zinc/Copper Ox/Vit E [Stress B-Complex Tablet] 1 tab PO DAILY 06/19/19 Bisoprolol Fumarate 10 mg PO DAILY 06/19/19 Lisinopril 40 mg PO DAILY 06/19/19 Multivit-Min/Iron/Folic/Lutein [Centrum Silver Women Tablet] 1 tab PO DAILY 06/19/19 [place]-3 Fatty Acids [[place]-3] 1,000 mg PO DAILY 06/19/19 Thyroid,Pork [[place] Thyroid] 30 mg PO DAILY 06/19/19 Ubidecarenone [Co Q-10] 100 mg PO DAILY 06/19/19 Primary Care Physician: Whitney Demarco DO [Primary Care Provider] - Please follow up with your Primary Care Physician in: 3-5 Days Please Follow Up With: Jermaine Álvarez MD When: as needed, call for appt with rectal surgeon for hemorrhoid removal Disposition: Home Minutes spent on discharge:: 35 Patient Condition:: Stable Medical Necessity - Tobacco Use Smoking Status: Never smoker Tobacco Use: Non-smoker Meaningful Use Info Meaningful Use Diagnoses (Choose all that apply): None applicable
[2019-06-22] MEDS: Thyroid 15 MG Tablet 30 MG PO (13:20)
[2019-06-22] MEDS: Allopurinol 300 MG Tablet PO (13:20)
[2019-06-22] MEDS: Lisinopril 40 MG Tablet PO (13:21)
[2019-06-22] MEDS: Bisoprolol Fumarate 5 MG Tablet 10 MG PO (13:21)
[2019-06-22] MEDS: amLODIPine 5 MG Tablet PO (13:21)
--- NOTE | 2019-06-22 13:42 | CASEMGMT ---
RN CM Assessment Introduced role of RN CM to patient and patient son and dtr at bedside.? Patient is alert, oriented and able?to participate in RN CM Assessment. ?Care providers, pharmacy, and demographics verified. Presentation: Fatigue, Malaise, exertional Dyspnea, occasional BRBPR and dark appearing stools Admit Dx: Dyspnea, Anemia Re-Admit: No Barriers/Issues: None. HAs four children that all live in close proximity to patient. PCP: Whitney Demarco Specialists: None Preferred Pharmacy: [facility] Insurance: [facility] PPO Rx Benefit:?Yes ?LNOK: Son Ricardo García LW/HPOA: States has both, made aware not on file with [facility] and if brought in will place a copy on file. HPOA- son Agustin García Living Arrangements:? Lives alone in a ground level apartment, no steps to enter ADL?s: Independent with ambulation and ADLs, does use a single point cane at night. Transportation: Patient drives DME: 2ww, cane, grab bars in shower HHC: None SNF: None Goal: Home and does not think will have any needs. Denies any issues, concerns, needs or questions with DC planning at this time. Aware CM remains available for any emerging needs. DC PLAN: Home with no anticipated needs identified at this time. NITA Newsome
--- NOTE | 2019-06-22 14:18 | PHA.DC.MR ---
Pharmacy Service has performed discharge medication reconciliation for this patient. The patient's discharge medication list was reviewed for discrepancies and discrepancies were resolved. Home Medications Allopurinol 300 mg PO DAILY 06/19/19 Amlodipine [Norvasc] 5 mg PO DAILY 06/19/19 Ascorbic Acid [Vitamin C with Aubrie Hips] 1,000 mg PO DAILY 06/19/19 B,C/Folic/Zinc/Copper Ox/Vit E [Stress B-Complex Tablet] 1 tab PO DAILY 06/19/19 Bisoprolol Fumarate 10 mg PO DAILY 06/19/19 Lisinopril 40 mg PO DAILY 06/19/19 Multivit-Min/Iron/Folic/Lutein [Centrum Silver Women Tablet] 1 tab PO DAILY 06/19/19 [place]-3 Fatty Acids [[place]-3] 1,000 mg PO DAILY 06/19/19 Thyroid,Pork [[place] Thyroid] 30 mg PO DAILY 06/19/19 Ubidecarenone [Co Q-10] 100 mg PO DAILY 06/19/19
--- NOTE | 2019-06-22 15:12 | CASEMGMT ---
Patient has a Healthcare Power of Repair Servicer and a Healthcare Living Will. She is aware they are not on file at [facility]. Tara CHASE
== END 2019-06-22 16:06 | disposition home or self-care (01) | DRG 812 ==
LOC: ED 15:47 → PCU 17:30
PROVIDERS: Anesthesiology; Nurse Practitioner Family; Surgery; Admitting Provider Family Medicine; Emergency Provider Emergency Medicine; PCP Internal Medicine; Visit Provider Internal Medicine
PROC: 0DJD8ZZ Inspection of Lower Intestinal Tract, Via Natural or Artificial Opening Endoscopic (ICD-10-PCS; CPT 45378; principal; 2019-06-22 15:40)
DX: D50.0 Iron deficiency anemia secondary to blood loss (chronic) (principal); K64.1 Second degree hemorrhoids; K64.4 Residual hemorrhoidal skin tags; G47.33 Obstructive sleep apnea (adult) (pediatric); I10 Essential (primary) hypertension; E03.9 Hypothyroidism, unspecified; K44.9 Diaphragmatic hernia without obstruction or gangrene; K57.30 Diverticulosis of large intestine without perforation or abscess without bleeding; D12.7 Benign neoplasm of rectosigmoid junction; R06.00 Dyspnea, unspecified; M10.9 Gout, unspecified
CPT/HCPCS: 36415; 71045; 80048; 80061; 83540; 83550; 83735; 83880; 84443; 84484; 85025; 85027; 85610; 85730; 86850; 86900; 86901; 86920; 86922; 87804; 88305; 88342; 93005; 93306; 97162; 97166; 97535; 99285; J1756; J7030; J7040; J7120; P9016; A4216; J1610; J1940; J2405

== ENCOUNTER → 2020-05-27 10:20 | Outpatient (CLI) | payer MEDICARE, SELFPAY ==
[2019-06-21 22:43] VITALS: BMI 35.6
--- NOTE | 2020-05-27 13:42 | NEURO_ITS ---
NCS and/or EMG Patient Report Ordering Doctor: DavWhitney DATE OF SERVICE: 05/27/20 Indication: Numbness and tingling in the first 3 digits of both hands (right greater than left). 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 Symptoms have been present for years, but worsened significantly of late. Evaluate for peripheral nerve injury. Findings: Nerve conduction studies were performed in the right and left upper extremities. The right median motor study recording the abductor pollicis brevis showed a markedly reduced amplitude, prolonged distal latency and markedly slowed velocity. The right ulnar motor study recording the abductor digiti minimi showed a normal amplitude, normal distal latency and normal conduction velocity. No conduction block or focal slowing was present across the elbow. The right median sensory response recording digit two showed an absent response. The right ulnar sensory response recording digit five showed a borderline amplitude, normal latency and borderline conduction velocity. The right radial sensory response recording over the extensor snuff box showed a normal amplitude, latency and conduction velocity. The left median motor study recording the abductor pollicis brevis showed a reduced amplitude, prolonged distal latency and slowed conduction velocity. The left ulnar motor study recording the abductor digiti minimi showed a normal amplitude, normal distal latency and normal conduction velocity. No conduction block or focal slowing was present across the elbow. The left median sensory response recording digit two showed a normal amplitude, prolonged latency and markedly slowed conduction velocity. The left ulnar sensory response recording digit five showed a normal amplitude, normal latency and mildly slowed conduction velocity. The left radial sensory response recording over the extensor snuff box showed a normal amplitude, latency and conduction velocity. Right median-ulnar lumbrical / interosseous motor latencies showed a prolonged median latency compared to the ulnar. Left median-ulnar lumbrical / interosseous motor latencies showed a prolonged me bette latency compared to the ulnar. Needle EMG of the right upper extremity muscles was performed. Active denervation was seen in the abductor pollicis brevis muscle. No denervation was seen in any other muscle. The abductor pollicis brevis did not reveal any volitional motor units. All other examined muscles demonstrated normal motor unit morphology, activation and recruitment patterns. Needle EMG of the left abductor pollicis brevis muscle was performed. Active denervation was seen. Motor units were large amplitude, long duration and polyphasic with reduced recruitment. Impression: This is a markedly abnormal study. 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 These findings are compatible with the clinical diagnosis of carpal tunnel syndrome. In addition, there is no electrophysiologic evidence of cervical radiculopathy or other entrapment neuropathy in the right upper extremity. Arvind Pham D.O.
== END ==
PROVIDERS: PCP Internal Medicine; Referring Provider Internal Medicine; Visit Provider Internal Medicine
DX: R20.2 Paresthesia of skin (principal)
CPT/HCPCS: 95885; 95886; 95913

== ENCOUNTER 2020-12-06 10:07 | Emergency (ER) | payer MEDICARE, SELFPAY ==
[2019-06-21 22:43] VITALS: BMI 35.6
[2020-12-06 10:08] VITALS: BP 190/86; PULSE 81; RESP 14; TEMP 36.9; O2SAT 98; BMI 34.1
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
--- NOTE | 2020-12-06 10:16 | EKG12_ITS ---
Test Reason : Blood Pressure : / mmHG Vent. Rate : 081 BPM Atrial Rate : 081 BPM P-R Int : 152 ms QRS Dur : 100 ms QT Int : 392 ms P-R-T Axes : 070 -19 059 degrees QTc Int : 455 ms Sinus rhythm with occasional Premature ventricular complexes Poor R wave progression Confirmed by TEE MORENO, NORMA ([id number]), assignment editor ROBYN LEONG ([id number]) on 12/07/2020 10:13:15 AM Referred By: [email or web address] Confirmed By:NORMA OLIVEIRA MD
[2020-12-06 10:35] LABS: Absolute Lymphocyte Count 1.11 X10^3/uL (0.83-4.51); Absolute Neutrophil Count 5.7 X10^3/uL (2.0-7.7); Basophil# 0.04 X10^3/uL; Basophil% 0.5 % (0-1); Eosinophil# 0.17 X10^3/uL; Eosinophils% 2.2 % (0-5); Hematocrit 37.3 % (37-47); Hemoglobin 11.7 g/dL (12.0-15.0); Lymphocyte # 1.11 X10^3/ul (0.83-4.51); Lymphocyte % 14.7 % (19-41); Mean Corp Hgb Conc 31.4 g/dL (32-36); Mean Corpuscular Hgb 26.5 pg (27.0-32.0); Mean Corpuscular Volume 84.6 fL (81-99); Mean Platelet Vol. 10.8 fl (6.2-12.0); Monocyte# 0.43 X10^3/uL; Monocyte% 5.7 % (0-10); NRBC Flagged by Analyzer 0 % (0-5); Neutrophil # 5.69 X10^3/uL (2.7-7.7); Neutrophil % 75.2 % (47-70); Platelet Count 229 K/mm3 (150-450); RBC Distribution Width CV 19.1 % (11.6-14.6); RBC Distribution Width SD 59.1 fl (35.1-43.9); Red Blood Count 4.41 M/mm3 (4.2-5.4); White Blood Count 7.6 K/mm3 (4.4-11.0)
[2020-12-06 10:51] LABS: Anion Gap 6 (5-15); BUN 24 mg/dL (7-18); BUN/Creat Ratio 28.4 RATIO (10-20); Calcium,Total 8.9 mg/dL (8.5-10.1); Chloride 106 mmol/L (98-107); Creatinine, Serum 0.84 mg/dL (0.55-1.02); EST Glomerular Filtration Rate 69 mL/min (>60); Est Glom Filt Rate - Afr Amer 84 mL/min (>60); Estimated Creatinine Clearance 55.68 ml/min; Glucose 126 mg/dL (74-106); Potassium 4.1 mmol/L (3.5-5.1); Sodium Level 138 mmol/L (136-145); Troponin-I HS 11.3 pg/mL (3.0-53.7)
[2020-12-06] MEDS: Ketorolac 30 MG/ML Syringe IV (12:37)
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
[2020-12-06 12:49] VITALS: BP 159/68; PULSE 69; RESP 15; O2SAT 97
== END 2020-12-06 12:51 | disposition home or self-care (01) ==
PROVIDERS: Emergency Provider Emergency Medicine; PCP Internal Medicine
DX: T23.071A Burn of unspecified degree of right wrist, initial encounter (principal); T23.072A Burn of unspecified degree of left wrist, initial encounter; R07.89 Other chest pain; W22.11XA Striking against or struck by driver side automobile airbag, initial encounter; V47.5XXA Car driver injured in collision with fixed or stationary object in traffic accident, initial encounter; Y93.9 Activity, unspecified; Y92.9 Unspecified place or not applicable; I49.3 Ventricular premature depolarization; I10 Essential (primary) hypertension; E03.9 Hypothyroidism, unspecified; M10.9 Gout, unspecified; G47.33 Obstructive sleep apnea (adult) (pediatric); Z79.899 Other long term (current) drug therapy
CPT/HCPCS: 71260; 80048; 84484; 85025; 93005; 96374; 99285; Q9967; A4216

== ENCOUNTER → 2021-10-17 | Outpatient (CLI) | payer MEDICARE, SELFPAY | END | disposition home or self-care (01) | PROVIDERS: PCP Internal Medicine; Visit Provider Podiatrist | DX: L97.522 Non-pressure chronic ulcer of other part of left foot with fat layer exposed (principal) | CPT/HCPCS: 87070; 87077; 87186; 87205 ==

== ENCOUNTER 2021-10-19 15:59 | Emergency (ER) | payer MEDICARE, SELFPAY ==
[2021-10-19 16:00] VITALS: BP 174/82; PULSE 77; RESP 16; TEMP 36.9; O2SAT 100; BMI 31.3
--- NOTE | 2021-10-19 16:08 | EKG12_ITS ---
Test Reason : CP Blood Pressure : / mmHG Vent. Rate : 076 BPM Atrial Rate : 076 BPM P-R Int : 138 ms QRS Dur : 118 ms QT Int : 418 ms P-R-T Axes : 063 -14 070 degrees QTc Int : 470 ms Normal sinus rhythm Incomplete left bundle branch block Nonspecific ST abnormality Abnormal ECG Confirmed by TEE MORENO, NORMA ([id number]), editorial intern ROBYN LEONG ([id number]) on 10/24/2021 10:17:45 AM Referred By: LYRIC Confirmed By:NORMA OLIVEIRA MD
[2021-10-19 16:16] LABS: Absolute Lymphocyte Count 1.24 X10^3/uL (0.83-4.51); Absolute Neutrophil Count 5.3 X10^3/uL (2.0-7.7); Basophil# 0.04 X10^3/uL; Basophil% 0.6 % (0-1); Eosinophil# 0.06 X10^3/uL; Eosinophils% 0.8 % (0-5); Hematocrit 38.4 % (37-47); Hemoglobin 12.6 g/dL (12.0-15.0); Lymphocyte # 1.24 X10^3/ul (0.83-4.51); Lymphocyte % 17.2 % (19-41); Mean Corp Hgb Conc 32.8 g/dL (32-36); Mean Corpuscular Hgb 27.8 pg (27.0-32.0); Mean Corpuscular Volume 84.6 fL (81-99); Mean Platelet Vol. 11.1 fl (6.2-12.0); Monocyte# 0.49 X10^3/uL; Monocyte% 6.8 % (0-10); NRBC Flagged by Analyzer 0 % (0-5); Neutrophil # 5.34 X10^3/uL (2.7-7.7); Neutrophil % 73.8 % (47-70); Platelet Count 198 K/mm3 (150-450); RBC Distribution Width CV 15.4 % (11.6-14.6); RBC Distribution Width SD 47.4 fl (35.1-43.9); Red Blood Count 4.54 M/mm3 (4.2-5.4); White Blood Count 7.2 K/mm3 (4.4-11.0)
[2021-10-19 16:34] LABS: Anion Gap 9 (5-15); BUN 13 mg/dL (7-18); BUN/Creat Ratio 22.9 RATIO (10-20); Calcium,Total 9.2 mg/dL (8.5-10.1); Chloride 109 mmol/L (98-107); Creatinine, Serum 0.57 mg/dL (0.55-1.02); EST Glomerular Filtration Rate 109 mL/min (>60); Est Glom Filt Rate - Afr Amer 132 mL/min (>60); Estimated Creatinine Clearance 45.09 ml/min; Glucose 117 mg/dL (74-106); Potassium 3.9 mmol/L (3.5-5.1); Sodium Level 141 mmol/L (136-145); Troponin-I HS (w/2H Reflex) 9 pg/mL (3.0-54.0)
--- NOTE | 2021-10-19 16:40 | RAD_ITS ---
STUDY: X-RAY CHEST REASON FOR EXAM: Female, 80 years old. chest pain TECHNIQUE: Single AP portable view of the chest. COMPARISON: 06/19/2019. FINDINGS: The lungs are clear and expanded. There is no demonstrated pleural abnormality. Moderate hiatal hernia. Normal size heart. Normal visualized pulmonary arteries. Normal visualized aortic arch and descending thoracic aorta. Normal visualized thoracic spine. Normal visualized ribs, clavicles, and shoulders. There is no demonstrated abnormality of the visualized soft tissue structures of the upper abdomen. RAD/Chest 1 View (Portable) IMPRESSION: No acute findings. Hiatal hernia. Electronically Signed: Denise Gutierrez MD at 17:09 EDT Reading Location ID and State: [id number] / Tel , Service support ,
--- NOTE | 2021-10-19 16:45 | ED.VIS.CHEST ---
HPI History of Present Illness Chief Complaint: Chest Pain Narrative Narrative: 80-year-old female presenting for evaluation of chest pain. This started about 1230. She states she had just eaten breakfast including raisin Bran and a banana. She states she went to the commode and sat down. She reports tightness across her chest which lasted about 2 minutes. She denies nausea, diaphoresis, lightheadedness, shortness of breath. She has not had a return of the chest pain. Patient states she tested herself by walking up and down the ramp and felt fine. She states has a history of hyperlipidemia and hypertension. She states her primary care physician told her she had CAD but she reports that she has had normal stress test in the past. No history of OR. No DVT/PE risk factors or history. [facility] Medical History Gout Hypertension Hypothyroidism EDDIE (obstructive sleep apnea) Home Medications allopurinol 300 mg tablet 300 mg PO DAILY gout 06/19/19 [History Last Taken 06/18/19] amlodipine 5 mg tablet 5 mg PO DAILY bp 06/19/19 [History Last Taken 06/18/19] ascorbic acid (vitamin C) 1,000 mg tablet 1,000 mg PO DAILY supplement 06/19/19 [History Last Taken 06/18/19] bisoprolol fumarate 10 mg tablet 10 mg PO DAILY heart 06/19/19 [History Last Taken 06/18/19] lisinopril 20 mg tablet 20 mg PO BID bp 06/19/19 [History Last Taken 06/18/19] multivit with eyqiluja-cngw-DL-lutein 8 mg iron-400 mcg-300 mcg tablet 1 tab PO DAILY supplement 06/19/19 [History Last Taken 06/18/19] omega-3 fatty acids 1,000 mg capsule 1,000 mg PO DAILY supplement 06/19/19 [History Last Taken 06/18/19] thyroid (pork) 30 mg tablet 45 mg PO DAILY thyroid 06/19/19 [History Last Taken 06/18/19] vit B wegljdh-V-SV-dvvx-dyfxhn-B 500 mg-400 mcg-23.9 mg-3 mg tablet 1 tab PO DAILY supplement 06/19/19 [History Last Taken 06/18/19] Allergy/AdvReac Type Severity Reaction Status Date / Time Penicillins [PCN] Allergy Shortness Verified 10/19/21 15:59 of breath Surgical History Hx of appendectomy Hx of cholecystectomy Social History Smoking Status: Never smoker substance use type: does not use ROS ROS ED Constitutional Constitutional ED: Denies chills Eyes Eyes: Denies blurry vision or change in vision ENT ENT ED: Denies rhinorrhea or sore throat Cardiovascular Cardiovascular: Reports as per HPI Respiratory/Chest Respiratory/Chest: Denies cough or dyspnea Gastrointestinal Gastrointestinal: Denies abdominal pain, constipation or diarrhea Genitourinary Genitourinary ED: Denies dysuria Musculoskeletal Musculoskeletal: Denies arthralgias or back pain Integumentary Denies abscess Neurologic Neurologic: Denies headache(s) Psychiatric Psychiatric: Denies anxiety or depression EXAM Physical Exam Const Vital Signs: 10/19/21 16:00 10/19/21 16:17 10/19/21 17:13 Temperature 98.4 F Temperature Source Temporal Pulse Rate 77 Respiratory Rate 16 Respiratory Effort Normal Non-Labored Respiratory Pattern Normal Blood Pressure 174/82 H Blood Pressure Mean 112 Pulse Ox 100 95 Oxygen Delivery Method Room Air Room Air 10/19/21 17:58 10/19/21 19:06 Temperature Temperature Source Pulse Rate 63 72 Respiratory Rate 18 20 H Respiratory Effort Respiratory Pattern Blood Pressure 175/80 H Blood Pressure Mean 111 Pulse Ox 96 96 Oxygen Delivery Method Room Air Room Air Positive well nourished General Appearance ED: NAD; Negative for pallor HEENT Reports moist mucous membranes Eyes PERRL and EOMs intact bilaterally General Eye ED: Negative for pale conjunctiva or scleral icterus Chest Wall inspection of chest normal and palpation of chest normal Resp normal respiratory effort and clear to auscultation bilaterally Effort and Inspection: Negative for respiratory distress Cardio regular rate and regular rhythm Extremity normal to inspection Neuro oriented x3 and CN's II-XII intact bilaterally Sensorium / Orientation: awake and alert Psych mental status grossly normal Skin General Skin Exam: Negative for jaundice or pallor Heart Score History: Slightly/Non-Suspicious ECG: Normal Age: >/= 65 years Risk Factors: 1 or 2 Risk Factors Score: 3 MDM MDM MDM Narrative Medical decision making narrative: Patient presenting with chest pain which lasted a couple of minutes which resolved. She had no other associated symptoms. She has a history of hypertension hyperlipidemia. She is a non-smoker. Bilateral EKG obtained on arrival shows a normal sinus rhythm with a ventricular to 76 bpm without sign of ST elevation or depression. No dysrhythmia. This is on my interpretation. Chest x-ray on my interpretation shows no acute cardiopulmonary process and the radiologist does agree. Radiologist does note a hiatal hernia. CBC shows no leukocytosis with white blood cell count of 7.2. Hemoglobin stable at 12.7. Platelets normal at 198. Renal function electrolytes are normal. High sensitive troponin is 9. Delta troponin is 8. No significant interval change. This is possibly caused by her hiatal hernia. It was recommended her to follow-up with her PCP as she will need follow-up for the chest pain. I believe she safe for discharge at this time. Impression: 1. Chest pain noncardiac 2. Hiatal hernia Lab Data Labs: Laboratory Results - last 24 hr 10/19/21 10/19/21 10/19/21 16:10 16:10 19:08 WBC 7.2 RBC 4.54 Hgb 12.6 Hct 38.4 MCV 84.6 MCH 27.8 MCHC 32.8 RDW Std Deviation 47.4 H RDW Coeff of Rex 15.4 H Plt Count 198 MPV 11.1 Immature Gran % (Auto) 0.800 Neut % (Auto) 73.8 H Lymph % (Auto) 17.2 L [place] % (Auto) 6.8 Eos % (Auto) 0.8 Baso % (Auto) 0.6 Absolute Neuts (auto) 5.3 Absolute Lymphs (auto) 1.24 Nucleated RBC % 0 Sodium 141 Potassium 3.9 Chloride 109 H Carbon Dioxide 23.0 Anion Gap 9 BUN 13 Creatinine 0.57 Estim Creat Clear Calc 45.09 Est GFR (MDRD) Af Amer 132 Est GFR (MDRD) Non-Af 109 BUN/Creatinine Ratio 22.9 H Glucose 117 H Calcium 9.2 Troponin I High Sens 9 8 Radiography Diagnostic Testing: Clinical Impression(s) from Imaging Studies Chest X-Ray 10/19/21 16:40 IMPRESSION: No acute findings. Hiatal hernia. Electronically Signed: Denise Gutierrez MD at 17:09 EDT Reading Location ID and State: [id number] / Tel , Service support , Discharge Plan Triage Chief Complaint: Chest Pain ED Provider: Justin Horan Dx/Rx/DC Orders Instructions: ED Chest Pain, Noncardiac Prescriptions: No Action ascorbic acid (vitamin C) 1,000 MG tablet 1,000 mg PO DAILY omega-3 fatty acids 1,000 MG capsule 1,000 mg PO DAILY lisinopril 20 MG tablet 20 mg PO BID amlodipine 5 MG tablet 5 mg PO DAILY bisoprolol fumarate 10 mg tablet 10 mg PO DAILY Label Comments: TAKE 1 TABLET BY MOUTH ONCE DAILY allopurinol 300 MG tablet 300 mg PO DAILY thyroid (pork) 30 mg tablet 45 mg PO DAILY Label Comments: TAKE 1 TABLET BY MOUTH EVERY DAY vit B,Z-AE-urxg-copper oxide-E 1 EACH tablet 1 tab PO DAILY mupedvzk-pls-eday-FA-lutein 1 EACH tablet 1 tab PO DAILY Primary Care Provider: Whitney Demarco Referrals: Whitney Demarco DO [Primary Care Provider] - Disposition Disposition: Home, Self Care
[2021-10-19 17:13] VITALS: O2SAT 95
[2021-10-19 17:58] VITALS: BP 175/80; PULSE 63; RESP 18; O2SAT 96
[2021-10-19 18:12] LABS: Reflex Troponin-HS? (from REC) Y
[2021-10-19 19:06] VITALS: PULSE 72; RESP 20; O2SAT 96
[2021-10-19 19:46] LABS: Troponin-I HS 8 pg/mL (3.0-54.0)
[2021-10-19 20:05] VITALS: BP 161/73; PULSE 72; RESP 18; O2SAT 98
== END 2021-10-19 20:06 | disposition home or self-care (01) ==
PROVIDERS: Emergency Provider Student in an Organized Health Care Education/Training Program; PCP Internal Medicine; Visit Provider Student in an Organized Health Care Education/Training Program
DX: R07.89 Other chest pain (principal); I10 Essential (primary) hypertension; M10.9 Gout, unspecified; E03.9 Hypothyroidism, unspecified; G47.33 Obstructive sleep apnea (adult) (pediatric); Z79.899 Other long term (current) drug therapy; K44.9 Diaphragmatic hernia without obstruction or gangrene
CPT/HCPCS: 71045; 80048; 84484; 85025; 93005; 99284; A4216

== ENCOUNTER 2022-02-22 14:04 | Emergency (ER) | payer MEDICARE, SELFPAY ==
[2022-02-22 14:05] VITALS: BP 191/92; PULSE 79; RESP 16; TEMP 36.4; O2SAT 95; BMI 33.4
--- NOTE | 2022-02-22 15:32 | EKG12_ITS ---
Test Reason : ABN LABS Blood Pressure : / mmHG Vent. Rate : 069 BPM Atrial Rate : 069 BPM P-R Int : 158 ms QRS Dur : 108 ms QT Int : 428 ms P-R-T Axes : 075 -12 059 degrees QTc Int : 458 ms Normal sinus rhythm Minimal voltage criteria for LVH, may be normal variant ( Kiran product ) Nonspecific ST and T wave abnormality Abnormal ECG Confirmed by NELLY MORENO, TAYLOR ([id number]), subeditor ROBYN LEONG ([id number]) on 02/26/2022 1:15:07 PM Referred By: Confirmed By:TAYLOR VILLEGAS MD
--- NOTE | 2022-02-22 15:33 | EX.ED.DYSGE1 ---
HPI History of Present Illness Chief Complaint: Abn Labs Informant: patient Onset/Context/Timing Onset: Yesterday (1 hour of shortness of breath last evening) Context: Onset with activity Timing: Intermittent and Lasts (Total duration 1 hour) Quality: Difficulty getting breath Location: Respiratory Current Severity: Gone Maximum Severity: Moderate Worsened by: Nothing Relieved by: Nothing Associated Symptoms Associated Symptoms: No associated symptoms or radiation Narrative Narrative: Patient is a 81-year-old woman with history of gout, hypertension, hypercholesterolemia who does give symptoms of hyper glycemia with polydipsia, polyuria and nocturia. She states her doctor is checking an A1c level on her. She does have history of hypothyroidism. She denies history of PE or DVT. Denies leg pain or discoloration. She had mild swelling. When she had the episode of shortness of breath there was no chest discomfort of any type. There is no jaw pain, neck pain bilateral shoulder pain or upper extremity pain. There is no pain in her back. She denied nausea, vomiting diaphoresis. She denies HEENT, GI or symptoms. She does endorse recent swelling of her lower extremities. Apparently she was sent to radiology for stat CAT scan. The order sheet for CAT scan is PE suspected low probability. Prior similar symptoms: No Recent Illness/Hospitalization: No [facility] Medical History Gout Hypertension Hypothyroidism EDDIE (obstructive sleep apnea) Home Medications B complex-C 500 mg-folic 400 mcg-zinc 23.9 mg-copper 3 mg-vit E tablet 1 tab PO DAILY supplement 06/19/19 [History Last Taken 06/18/19] allopurinol 300 mg tablet 300 mg PO DAILY gout 06/19/19 [History Last Taken 06/18/19] amlodipine 5 mg tablet 5 mg PO DAILY bp 06/19/19 [History Last Taken 06/18/19] ascorbic acid (vitamin C) 1,000 mg tablet 1,000 mg PO DAILY supplement 06/19/19 [History Last Taken 06/18/19] bisoprolol fumarate 10 mg tablet 10 mg PO DAILY heart 06/19/19 [History Last Taken 06/18/19] lisinopril 20 mg tablet 20 mg PO BID bp 06/19/19 [History Last Taken 06/18/19] multivit with znjvumlw-iuts-DF-lutein 8 mg iron-400 mcg-300 mcg tablet 1 tab PO DAILY supplement 06/19/19 [History Last Taken 06/18/19] omega-3 fatty acids 1,000 mg capsule 1,000 mg PO DAILY supplement 06/19/19 [History Last Taken 06/18/19] thyroid (pork) 30 mg tablet 45 mg PO DAILY thyroid 06/19/19 [History Last Taken 06/18/19] Allergy/AdvReac Type Severity Reaction Status Date / Time Penicillins [PCN] Allergy Shortness Verified 02/22/22 14:07 of breath Surgical History Hx of appendectomy Hx of cholecystectomy Social History (Updated 02/22/22 @ 15:[address] Ken Ortiz MD) household members: none Smoking Status: Never smoker substance use type: does not use ROS ROS ED Constitutional Constitutional ED: Denies chills, fever(s), subjective, sweats or weight loss Eyes Eyes: Denies blurry vision, change in vision or diplopia ENT ENT ED: Denies ear pain, rhinorrhea or sore throat Cardiovascular Cardiovascular: Denies chest pain, orthopnea, palpitations, paroxysmal nocturnal dyspnea or racing heartbeat Respiratory/Chest Respiratory/Chest: Reports dyspnea; Denies cough, dyspnea on exertion, orthopnea, paroxysmal nocturnal dyspnea or sputum Gastrointestinal Gastrointestinal: Denies abdominal pain, diarrhea, melena, nausea or vomiting Genitourinary Genitourinary ED: Reports urinary frequency; Denies dysuria or hematuria Musculoskeletal Musculoskeletal: Denies arthralgias, back pain, myalgias or neck pain Integumentary Denies abscess, Abrasions or rash Neurologic Neurologic: Denies headache(s), paresthesias or weakness Psychiatric Psychiatric: Denies anxiety or depression Endocrine Endocrinology: Reports polydipsia and polyuria; Denies cold intolerance, heat intolerance or polyphagia Hematologic/Lymphatic Hematologic/Lymphatic: Reports systems reviewed and no addt'l complaints, except as documented and none EXAM Physical Exam Const Vital Signs: 02/22/22 14:05 02/22/22 14:49 02/22/22 16:35 Temperature 97.6 F L Temperature Source Oral Pulse Rate 79 69 Respiratory Rate 16 14 Respiratory Pattern Normal Blood Pressure 191/92 H 160/90 H Blood Pressure Mean 125 113 Pulse Ox 95 96 Oxygen Delivery Method Room Air Room Air 02/22/22 18:58 02/22/22 20:05 Temperature Temperature Source Pulse Rate 76 72 Respiratory Rate 14 19 H Respiratory Pattern Blood Pressure 100/74 160/80 H Blood Pressure Mean 82 106 Pulse Ox 96 95 Oxygen Delivery Method Room Air Room Air Positive well nourished, well developed and obese General Appearance ED: well developed and NAD; Negative for cyanotic, diaphoretic or pallor Nutritional Appearance: obese HEENT Reports moist mucous membranes HEENT Narrative: Head is atraumatic normocephalic. Ears normal. Nares patent. Mucosa moist. Teeth normal. Eyes PERRL and EOMs intact bilaterally General Eye ED: Negative for pale conjunctiva or scleral icterus Neck no lymphadenopathy, supple and no JVD Chest Wall inspection of chest normal and palpation of chest normal Resp normal respiratory effort and clear to auscultation bilaterally Cardio regular rate, regular rhythm, S1 normal heart sound, S2 normal heart sound and no murmurs GI normal to inspection, nondistended, normoactive bowel sounds, non-tender, non-distended and no masses; Negative for hepatosplenomegaly Back/Spine Thoracic Spine / Upper Back: Negative for thoracic spinal tenderness Lumbar Spine / Lower Back: Negative for lumbar spinal tenderness Extremity normal to inspection Extremity Narrative: There is no asymmetry, discoloration, leg vein distention, palpable cords tenderness along the distribution of the venous system. General Extremety ED: Yes edema General Extremity: edema Neuro oriented x3, CN's II-XII intact bilaterally and no sensory deficits noted Sensorium / Orientation: alert Motor Exam: strength 5/5 throughout Psych mental status grossly normal Skin no rashes or lesions noted, no wounds and skin turgor normal General Skin Exam: Negative for jaundice or pallor MDM MDM MDM Narrative Medical decision making narrative: Patient has edema of the lower extremity. This may be dependent edema versus hypoalbuminemia versus heart failure. Chest x-ray is obtained to assess her symptoms to rule out heart failure, new pneumonia or other causes. EKG to rule out cardiac ischemia. Troponin and events is an atypical presentation for cardiac ischemia in an elderly woman. D-dimer was not ordered since patient has no risk factors even though her PERC assessment is not negative. She is not negative because of age. History is not consistent with PE. With a normal EKG and normal troponin and symptoms that occurred approximately 20 hours ago patient will be discharged to home to follow-up with her primary care physician. Lab Data Labs: Laboratory Results - last 24 hr 02/22/22 02/22/22 14:35 14:35 WBC 8.1 RBC 4.28 Hgb 12.3 Hct 37.3 MCV 87.1 MCH 28.7 MCHC 33.0 RDW Std Deviation 47.8 H RDW Coeff of Rex 15.3 H Plt Count 261 MPV 11.1 Immature Gran % (Auto) 0.400 Neut % (Auto) 76.2 H Lymph % (Auto) 14.1 L [place] % (Auto) 7.2 Eos % (Auto) 1.7 Baso % (Auto) 0.4 Absolute Neuts (auto) 6.2 Absolute Lymphs (auto) 1.14 Nucleated RBC % 0 Sodium 140 Potassium 3.5 Chloride 105 Carbon Dioxide 27.0 Anion Gap 8 BUN 8 Creatinine 0.52 L Estim Creat Clear Calc 46.02 Est GFR (MDRD) Af Amer 145 Est GFR (MDRD) Non-Af 120 BUN/Creatinine Ratio 15.3 Glucose 97 Calcium 9.2 Troponin I High Sens 16 Radiography Chest X-Ray - ED: 2 View and Read by ED Physician (2 view chest x-ray was independent reviewed interpreted by ar at 1700. Patient has bilateral small pleural effusion.) Diagnostic Testing: Clinical Impression(s) from Imaging Studies Chest X-Ray 02/22/22 16:03 IMPRESSION: Small pleural effusions. Otherwise negative study. Electronically Signed: Denise Gutierrez MD at 17:07 EDT Reading Location ID and State: [id number] / Tel , Service support , EKG Initial EKG: Attestation: I personally reviewed and interpreted this EKG as follows: Interpretation: Sinus Rhythm (Normal sinus rhythm with a ventricular rate of 69. MO interval is 158 ms. QRS duration 108 ms. QT duration 428 ms. [place] is normal. There are an ossific changes noted this appears to be artifact. There is no evidence of acute ischemia. EKG is unremarkable.) Discharge Plan Triage Chief Complaint: Abn Labs ED Provider: Ken Ortiz Dx/Rx/DC Orders Clinical Impression: Dyspnea, Bilateral pleural effusion, BP (high blood pressure) Instructions: ED Dyspnea, ED Pleural Effusion Prescriptions: No Action ascorbic acid (vitamin C) 1,000 MG tablet 1,000 mg PO DAILY omega-3 fatty acids 1,000 MG capsule 1,000 mg PO DAILY lisinopril 20 MG tablet 20 mg PO BID amlodipine 5 MG tablet 5 mg PO DAILY bisoprolol fumarate 10 mg tablet 10 mg PO DAILY Label Comments: TAKE 1 TABLET BY MOUTH ONCE DAILY allopurinol 300 MG tablet 300 mg PO DAILY thyroid (pork) 30 mg tablet 45 mg PO DAILY Label Comments: TAKE 1 TABLET BY MOUTH EVERY DAY B rshnun-R-qsmre-xfbv-wbukav-X 1 EACH tablet 1 tab PO DAILY osnutaml-aee-mida-FA-lutein 1 EACH tablet 1 tab PO DAILY Primary Care Provider: Whitney Demarco Referrals: Whitney Demarco DO [Primary Care Provider] - 3-5 Days Disposition Disposition: Home, Self Care
[2022-02-22 15:50] LABS: Absolute Lymphocyte Count 1.14 X10^3/uL (0.83-4.51); Absolute Neutrophil Count 6.2 X10^3/uL (2.0-7.7); Basophil# 0.03 X10^3/uL; Basophil% 0.4 % (0-1); Eosinophil# 0.14 X10^3/uL; Eosinophils% 1.7 % (0-5); Hematocrit 37.3 % (37-47); Hemoglobin 12.3 g/dL (12.0-15.0); Lymphocyte # 1.14 X10^3/ul (0.83-4.51); Lymphocyte % 14.1 % (19-41); Mean Corpuscular Hgb 28.7 pg (27.0-32.0); Mean Corpuscular Volume 87.1 fL (81-99); Mean Platelet Vol. 11.1 fl (6.2-12.0); Monocyte# 0.58 X10^3/uL; Monocyte% 7.2 % (0-10); NRBC Flagged by Analyzer 0 % (0-5); Neutrophil # 6.18 X10^3/uL (2.7-7.7); Neutrophil % 76.2 % (47-70); Platelet Count 261 K/mm3 (150-450); RBC Distribution Width CV 15.3 % (11.6-14.6); RBC Distribution Width SD 47.8 fl (35.1-43.9); Red Blood Count 4.28 M/mm3 (4.2-5.4); White Blood Count 8.1 K/mm3 (4.4-11.0)
--- NOTE | 2022-02-22 16:03 | RAD_ITS ---
EXAM: XR CHEST, 2 VIEWS CLINICAL INDICATION: Dyspnea TECHNIQUE: Frontal and lateral views of the chest. This report was created using [employer] report generation technology. COMPARISON: 10/19/2021. FINDINGS: LUNGS AND PLEURAL SPACES: Small bilateral pleural effusions. Lungs are otherwise clear. No pneumothorax. HEART: Unremarkable. Cardiac silhouette not enlarged. MEDIASTINUM: Central airways and mediastinal contour are unremarkable. BONES/JOINTS: Unremarkable. No displaced fracture. No destructive or sclerotic lesions. Visualized joint spaces are unremarkable. SOFT TISSUES: Unremarkable. RAD/Chest PA and Lateral IMPRESSION: Small pleural effusions. Otherwise negative study. Electronically Signed: Denise Gutierrez MD at 17:07 EDT Reading Location ID and State: [id number] / Tel , Service support ,
[2022-02-22 16:08] LABS: Anion Gap 8 (5-15); BUN 8 mg/dL (7-18); BUN/Creat Ratio 15.3 RATIO (10-20); Calcium,Total 9.2 mg/dL (8.5-10.1); Chloride 105 mmol/L (98-107); Creatinine, Serum 0.52 mg/dL (0.55-1.02); EST Glomerular Filtration Rate 120 mL/min (>60); Est Glom Filt Rate - Afr Amer 145 mL/min (>60); Estimated Creatinine Clearance 46.02 ml/min; Glucose 97 mg/dL (74-106); Potassium 3.5 mmol/L (3.5-5.1); Sodium Level 140 mmol/L (136-145); Troponin-I HS 16 pg/mL (3.0-54.0)
[2022-02-22 16:35] VITALS: BP 160/90; PULSE 69; RESP 14; O2SAT 96
[2022-02-22 18:58] VITALS: BP 100/74; PULSE 76; RESP 14; O2SAT 96
[2022-02-22 20:05] VITALS: BP 160/80; PULSE 72; RESP 19; O2SAT 95
[2022-02-22 22:13] VITALS: BP 168/71; PULSE 76; RESP 20; O2SAT 94
== END 2022-02-22 22:14 | disposition home or self-care (01) ==
PROVIDERS: Emergency Provider Emergency Medicine; PCP Internal Medicine; Visit Provider Emergency Medicine
DX: R06.02 Shortness of breath (principal); J90 Pleural effusion, not elsewhere classified; E78.00 Pure hypercholesterolemia, unspecified; I10 Essential (primary) hypertension; R35.0 Frequency of micturition; R63.1 Polydipsia; R35.89 Other polyuria; R60.0 Localized edema
CPT/HCPCS: 71046; 80048; 84484; 85025; 85379; 93005; 99284; J7030; A4216

== ENCOUNTER → 2022-02-22 | Outpatient (CLI) | payer MEDICARE, SELFPAY ==
[2022-02-22 13:12] LABS: D-Dimer Quantitative (DVT/PE) 1.71 FEU/ug/m (0.27-0.49)
== END | disposition home or self-care (01) ==
LOC: LABSPEC 12:36
PROVIDERS: PCP Internal Medicine; Visit Provider Internal Medicine
DX: R06.02 Shortness of breath (principal)
CPT/HCPCS: 85379

== ENCOUNTER → 2022-03-01 | Outpatient (CLI) | payer MEDICARE, SELFPAY ==
--- NOTE | 2022-03-01 12:01 | CT_ITS ---
STUDY: CTA CHEST REASON FOR EXAM: Female, 81 years old. Shortness of breath RADIATION DOSAGE (If Supplied By Facility): CTDIvol = ( 13.61 ) mGy, DLP = ( 514.42 ) mGycm TECHNIQUE: The examination was performed with the intravenous administration of IV 100mL Isovue-370. Post-processing of the angiographic images was performed, with multiplanar reformation and 3D reconstruction. Individualized dose optimization techniques were used for this CT. COMPARISON: Comparison is made with prior CT scan examination dated 12/06/2020 and prior chest radiograph dated 02/22/2022.. FINDINGS: Normal enhancement of the main pulmonary artery and right and left pulmonary arteries. Normal enhancement of the bilateral peripheral pulmonary arteries. There is no demonstrated pulmonary embolism. There is atherosclerotic calcification of the aortic arch with tortuosity. There is no demonstrated aortic dissection. There are calcifications of the coronary arteries. Normal mediastinum. Normal hilar regions. Normal visualized trachea and bronchi. The lungs are well expanded. Minimal degree of linear atelectasis at the lung bases. Normal pleura. Normal chest wall structures. There are degenerative changes of thoracic spine. Increased kyphosis. 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 Moderate-sized hiatal hernia. CT/CTA Chest W/WO Contrast IMPRESSION: Minimal linear atelectasis at the lung bases. Hiatal hernia. No evidence of pulmonary embolism. Electronically Signed: Roberto Marquez MD at 12:59 EST ,
== END | disposition home or self-care (01) ==
PROVIDERS: PCP Internal Medicine; Visit Provider Internal Medicine
DX: R06.02 Shortness of breath (principal)
CPT/HCPCS: 71275; Q9967

== ENCOUNTER 2022-07-10 11:59 | Inpatient (IN) | payer MEDICARE, SELFPAY ==
[2022-07-10] VITALS (27 sets, daily range): BP systolic 100–170; BP diastolic 54–107; PULSE 72–145; RESP 15–35; TEMP 36.7–37.5; O2SAT 90–99; BMI 36.3; BMI 35.3
--- NOTE | 2022-07-10 12:23 | RAD_ITS ---
STUDY: X-RAY CHEST REASON FOR EXAM: Female, 81 years old. Shortness of Breath . Cough. TECHNIQUE: Single AP portable view of the chest. COMPARISON: Comparison is made with prior study February 22, 2022. FINDINGS: EKG electrodes are seen. Infiltrates seen in the right upper lobe as well as right lower lobe. Follow-up recommended. The left lung is clear. There is no demonstrated pleural abnormality. There is moderate cardiac enlargement. Normal mediastinum and yoni. Normal visualized pulmonary arteries. There is atherosclerotic calcification of the aortic arch with tortuosity. There are diffuse degenerative changes of the visualized thoracic spine. There is degenerative osteoarthritis of the bilateral shoulders. Large anal hernia. RAD/Chest 1 View (Portable) IMPRESSION: Infiltrates in the right upper lobe and right lower lobe. Electronically Signed: Roberto Marquez MD at 13:08 EDT ,
--- NOTE | 2022-07-10 12:25 | ED.VIS.DYS ---
HPI History of Present Illness Chief Complaint: Shortness of Breath Associated Symptoms cough Narrative Narrative: 81-year-old female past medical history of hypertension, presents with her daughter because of upper respiratory infection type symptoms that she has had for the last 1 to 2 days. They state that they called Dr. Mehta's office and was told to come to the emergency department for evaluation instead of the office. Patient states that she has had cough and wheezing with shortness of breath but no fever for the last 1 to 2 days. She had mild fatigue with this. Daughter states that she has been wheezy, and has had difficulty breathing with dyspnea on exertion. [facility] Medical History Gout Hypertension Hypothyroidism EDDIE (obstructive sleep apnea) Home Medications B complex-C 500 mg-folic 400 mcg-zinc 23.9 mg-copper 3 mg-vit E tablet 1 tab PO DAILY supplement 06/19/19 [History Last Taken 06/18/19] allopurinol 300 mg tablet 300 mg PO DAILY gout 06/19/19 [History Last Taken 06/18/19] amlodipine 5 mg tablet 5 mg PO DAILY bp 06/19/19 [History Last Taken 06/18/19] ascorbic acid (vitamin C) 1,000 mg tablet 1,000 mg PO DAILY supplement 06/19/19 [History Last Taken 06/18/19] bisoprolol fumarate 10 mg tablet 10 mg PO QHS heart 06/19/19 [History Last Taken 06/18/19] lisinopril 20 mg tablet 20 mg PO BID bp 06/19/19 [History Last Taken 06/18/19] multivit with obrmpecn-wiqq-AQ-lutein 8 mg iron-400 mcg-300 mcg tablet 1 tab PO DAILY supplement 06/19/19 [History Last Taken 06/18/19] thyroid (pork) 30 mg tablet 45 mg PO DAILY thyroid 06/19/19 [History Last Taken 06/18/19] aspirin 81 mg tablet 81 mg PO DAILY 07/10/22 [History Last Taken Unknown] atorvastatin 40 mg tablet 40 mg PO QHS 07/10/22 [History Last Taken Unknown] clopidogrel 75 mg tablet (Plavix) 75 mg PO DAILY 07/10/22 [History Last Taken Unknown] Allergy/AdvReac Type Severity Reaction Status Date / Time Penicillins [PCN] Allergy Shortness Verified 07/10/22 12:02 of breath Surgical History Hx of appendectomy Hx of cholecystectomy Social History household members: none Smoking Status: Never smoker substance use type: does not use ROS ROS ED ROS Narrative Constitutional: No fever, no chills. As of malaise and fatigue. HEENT: No sore throat. No neck pain. No loss of vision. No rhinorrhea. Cardiovascular: No chest pain. No palpitations. No pedal edema. Respiratory: Occasional cough, does not have dyspnea on exertion and shortness of breath. Audible wheezing. Abdominal: No abdominal pain. No nausea. No vomiting. Genitourinary: No dysuria. No hematuria. Musculoskeletal: No myalgias. No arthralgias. Neurologic: No headaches. No dizziness. No lightheadedness. Skin: No rash. No change in color. Psychiatric: No depression. No anxiety. EXAM Physical Exam Narrative Exam Narrative: Afebrile. Vital signs noted. HEENT: Normocephalic. Atraumatic. PERRL, EOMI. Neck soft and supple. No point tenderness or step off. Cardiovascular: Positive tachycardia, sometimes irregular, at 145 bpm no murmurs, rubs, or gallops appreciated. Respiratory: No tachypnea. Bibasilar rales. Gastrointestinal: Abdomen soft, nontender, with normoactive bowel sounds. No rebound or guarding. Neurological: Awake. Alert. Nonfocal, nonlateralizing. Skin: No rash. Normal color. No pallor. Musculoskeletal: Thighs lateral symmetric pitting edema, full range of motion extremities. Const Vital Signs: 07/10/22 12:00 07/10/22 12:13 07/10/22 12:16 Temperature 98.1 F Temperature Source Temporal Pulse Rate 145 H 145 H Respiratory Rate 20 H 27 H Respiratory Effort Short of Breath Respiratory Pattern Tachypnea Blood Pressure 170/92 H Blood Pressure Mean 118 Pulse Ox 90 93 Oxygen Delivery Method Room Air Room Air Room Air 07/10/22 13:36 07/10/22 13:42 07/10/22 13:58 Temperature 99.2 F H Temperature Source Oral Pulse Rate 144 H 144 H 142 H Respiratory Rate 34 H 20 H 30 H Respiratory Effort Respiratory Pattern Tachypnea Blood Pressure 158/107 H Blood Pressure Mean 124 Pulse Ox 92 92 Oxygen Delivery Method Room Air Room Air 07/10/22 15:00 Temperature 99.5 F H Temperature Source Oral Pulse Rate 145 H Respiratory Rate 21 H Respiratory Effort Respiratory Pattern Blood Pressure 127/80 H Blood Pressure Mean 95 Pulse Ox 90 Oxygen Delivery Method Room Air MDM MDM MDM Narrative Medical decision making narrative: In the differential diagnosis is pneumonia and sepsis, along with COVID and influenza infection. Additionally, she has a heart rate in the 140's but denies history of atrial fibrillation, concern is for congestive heart failure with diagnosis of new onset atrial fibrillation. EKG was obtained and interpreted by myself which does show atrial flutter with a 2-[address] depression laterally at 145 bpm. No STEMI. I will obtain a chest x-ray to help rule out pneumonia but look for heart failure. I will also obtain basic laboratory work including CBC to make sure that anemia is not the cause of her shortness of breath, and additionally check her electrolytes and renal function. I will obtain a troponin and a BNP also. For her atrial flutter, she was administered Lopressor 5 mg intravenously with no significant lowering of her heart rate. I reviewed her laboratory work and she has an elevated white count of 13.3, hemoglobin 10.2, hematocrit 33.1 with platelet count normal at 291. As she was having new onset atrial flutter, troponin was obtained and is 11. BNP is elevated at 697. Her blood pressure has normalized to 127/80. However, she is having a significant temperature rise to 99.5. Her pulse ox ranges from 90 to 92% on room air. She will be placed on 2 L nasal cannula oxygen for comfort. Electrolyte panel is currently pending. I reviewed her respiratory swab results and she is negative for COVID and influenza a and B. Her lactic acid is normal at 1.7. Chest x-ray interpreted by myself does show mild CHF, and right-sided pneumonia in the upper lobe and lower lobe. I reviewed the radiology report which confirms my independent interpretation. As she has allergy to penicillin of shortness of breath, she will be placed on Levaquin intravenously after blood cultures obtained. She has a normal QTc of 400. At this point in time, given her new onset atrial flutter, and multilobar pneumonia, she only meets 1 criteria for severe pneumonia, but I do feel that she requires admission. I will discuss the patient with Dr. Cook with cardiology for further rate control of her atrial flutter, then with Dr. Sánchez the hospitalist for admission History & Record Review Discussion w/independent historian: Patient and Family Additional record(s) reviewed:: Prior ED visit Lab Data Attestation: I reviewed the patient's lab results. Labs: Laboratory Results - last 24 hr 07/10/22 07/10/22 07/10/22 12:30 12:30 12:30 WBC 13.3 H RBC 3.80 L Hgb 10.2 L Hct 33.1 L MCV 87.1 MCH 26.8 L MCHC 30.8 L RDW Std Deviation 47.0 H RDW Coeff of Rex 14.9 H Plt Count 291 MPV 11.2 Immature Gran % (Auto) 0.500 Neut % (Auto) 88.7 H Lymph % (Auto) 5.0 L [place] % (Auto) 5.1 Eos % (Auto) 0.4 Baso % (Auto) 0.3 Absolute Neuts (auto) 11.8 H Absolute Lymphs (auto) 0.66 L Nucleated RBC % 0 Lactic Acid Troponin I High Sens 11 B-Natriuretic Peptide 697.0 H 07/10/22 12:30 WBC RBC Hgb Hct MCV MCH MCHC RDW Std Deviation RDW Coeff of Rex Plt Count MPV Immature Gran % (Auto) Neut % (Auto) Lymph % (Auto) [place] % (Auto) Eos % (Auto) Baso % (Auto) Absolute Neuts (auto) Absolute Lymphs (auto) Nucleated RBC % Lactic Acid 1.7 Troponin I High Sens B-Natriuretic Peptide Radiography Diagnostic Testing: Clinical Impression(s) from Imaging Studies Chest X-Ray 07/10/22 12:23 IMPRESSION: Infiltrates in the right upper lobe and right lower lobe. Electronically Signed: Roberto Marquez MD at 13:08 EDT , Discharge Plan Dx/Rx/DC Orders Clinical Impression: Atrial flutter, Pneumonia, CHF (congestive heart failure), SOB (shortness of breath) Disposition Disposition: Acute Care Hospital [facility]
[2022-07-10] MEDS: Metoprolol Tartrate 5 MG/5 ML Vial IV (12:41)
[2022-07-10 13:01] LABS: Absolute Lymphocyte Count 0.66 X10^3/uL (0.83-4.51); Absolute Neutrophil Count 11.8 X10^3/uL (2.0-7.7); Basophil# 0.04 X10^3/uL; Basophil% 0.3 % (0-1); Eosinophil# 0.05 X10^3/uL; Eosinophils% 0.4 % (0-5); Hematocrit 33.1 % (37-47); Hemoglobin 10.2 g/dL (12.0-15.0); Lymphocyte # 0.66 X10^3/ul (0.83-4.51); Mean Corp Hgb Conc 30.8 g/dL (32-36); Mean Corpuscular Hgb 26.8 pg (27.0-32.0); Mean Corpuscular Volume 87.1 fL (81-99); Mean Platelet Vol. 11.2 fl (6.2-12.0); Monocyte# 0.67 X10^3/uL; Monocyte% 5.1 % (0-10); NRBC Flagged by Analyzer 0 % (0-5); Neutrophil # 11.78 X10^3/uL (2.7-7.7); Neutrophil % 88.7 % (47-70); Platelet Count 291 K/mm3 (150-450); RBC Distribution Width CV 14.9 % (11.6-14.6); White Blood Count 13.3 K/mm3 (4.4-11.0)
[2022-07-10 13:07] LABS: Lactic Acid 1.7 mmol/L (0.4-1.9)
[2022-07-10 13:11] LABS: Troponin-I HS 11 pg/mL (3.0-54.0)
[2022-07-10] MEDS: Ipratropium/Albuterol Sulfate 3 ML AMPUL.NEB INHALATION ×2 (13:40→19:22)
[2022-07-10 15:45] LABS: ALB/GLOB Ratio 1.2 RATIO (0.9-2.4); AST(SGOT) 26 U/L (15-37); Alanine Aminotransfer ALT/SGPT 18 U/L (13-56); Albumin, Serum 3.5 g/dL (3.2-5.0); Alkaline Phosphatase 101 U/L (45-117); Anion Gap 7 (5-15); BUN 12 mg/dL (7-18); BUN/Creat Ratio 21.5 RATIO (10-20); Calcium,Total 8.7 mg/dL (8.5-10.1); Chloride 107 mmol/L (98-107); Creatinine, Serum 0.56 mg/dL (0.55-1.02); EST Glomerular Filtration Rate 112 mL/min (>60); Est Glom Filt Rate - Afr Amer 135 mL/min (>60); Estimated Creatinine Clearance 46.02 ml/min; Globulin 2.9 g/dL (2.2-4.2); Glucose 153 mg/dL (74-106); Potassium 3.7 mmol/L (3.5-5.1); Protein, Total 6.4 g/dL (6.4-8.2); Sodium Level 140 mmol/L (136-145)
--- NOTE | 2022-07-10 15:50 | HP.PCM.HOS_ITS ---
HPI - General General Date of Admission: 07/10/22 HPI Narrative IRINA BAEZA, is a 81 F who presents to the hospital from home because of continued shortness of breath and cough. She developed URI-like symptoms few days ago but these have persisted. They called her PCPs office who directed them to bypass the office and come directly to the ER for evaluation. In the ER chest x-ray demonstrates a right upper and right lower lobe infiltrate as well as a white count of 13.3. She also has a new onset a flutter and was started on a Cardizem drip in the ED. No fevers but she does have a low-grade temp at 99.2. She is not currently hypoxic but is low at 90 to 91% on room air [facility] Medical History Gout Hypertension Hypothyroidism EDDIE (obstructive sleep apnea) Home Medications B complex-C 500 mg-folic 400 mcg-zinc 23.9 mg-copper 3 mg-vit E tablet 1 tab PO DAILY supplement 06/19/19 [History Last Taken 06/18/19] allopurinol 300 mg tablet 300 mg PO DAILY gout 06/19/19 [History Last Taken 06/18/19] amlodipine 5 mg tablet 5 mg PO DAILY bp 06/19/19 [History Last Taken 06/18/19] ascorbic acid (vitamin C) 1,000 mg tablet 1,000 mg PO DAILY supplement 06/19/19 [History Last Taken 06/18/19] bisoprolol fumarate 10 mg tablet 10 mg PO QHS heart 06/19/19 [History Last Taken 06/18/19] lisinopril 20 mg tablet 20 mg PO BID bp 06/19/19 [History Last Taken 06/18/19] multivit with zfwvplys-noto-VR-lutein 8 mg iron-400 mcg-300 mcg tablet 1 tab PO DAILY supplement 06/19/19 [History Last Taken 06/18/19] thyroid (pork) 30 mg tablet 45 mg PO DAILY thyroid 06/19/19 [History Last Taken 06/18/19] aspirin 81 mg tablet 81 mg PO DAILY 07/10/22 [History Last Taken Unknown] atorvastatin 40 mg tablet 40 mg PO QHS 07/10/22 [History Last Taken Unknown] clopidogrel 75 mg tablet (Plavix) 75 mg PO DAILY 07/10/22 [History Last Taken Unknown] Allergy/AdvReac Type Severity Reaction Status Date / Time Penicillins [PCN] Allergy Shortness Verified 07/10/22 12:02 of breath Family History (Updated 07/10/22 @ 16:[address] Hao Sánchez MD) Other CAD (coronary artery disease) Diabetes Heart disease Surgical History Hx of appendectomy Hx of cholecystectomy Social History household members: none Smoking Status: Never smoker substance use type: does not use ROS Constitutional Constitutional: Reports fatigue; Denies chills, fever(s) or malaise Eyes Eyes: Denies blurry vision ENT HEENT: Denies headache(s) or nasal discharge Cardiovascular Cardiovascular: Denies chest pain, dyspnea on exertion or syncope Respiratory/Chest Respiratory/Chest: Reports cough and shortness of breath at rest; Denies shortness of breath with exertion Gastrointestinal Gastrointestinal: Denies constipation, diarrhea, nausea or vomiting Genitourinary Genitourinary: Denies dysuria Neurologic Neurologic: Denies focal weakness, numbness or tremor(s) Psychiatric Psychiatric: Denies anxiety or depression Vital Signs Vital Signs Vital Signs: 07/10/22 12:00 07/10/22 12:13 07/10/22 12:16 Temperature 98.1 F Temperature Source Temporal Pulse Rate 145 H 145 H Respiratory Rate 20 H 27 H Respiratory Effort Short of Breath Respiratory Pattern Tachypnea Blood Pressure 170/92 H Blood Pressure Mean 118 Pulse Ox 90 93 Oxygen Delivery Method Room Air Room Air Room Air 07/10/22 13:36 07/10/22 13:42 07/10/22 13:58 Temperature 99.2 F H Temperature Source Oral Pulse Rate 144 H 144 H 142 H Respiratory Rate 34 H 20 H 30 H Respiratory Effort Respiratory Pattern Tachypnea Blood Pressure 158/107 H Blood Pressure Mean 124 Pulse Ox 92 92 Oxygen Delivery Method Room Air Room Air 07/10/22 15:00 Temperature 99.5 F H Temperature Source Oral Pulse Rate 145 H Respiratory Rate 21 H Respiratory Effort Respiratory Pattern Blood Pressure 127/80 H Blood Pressure Mean 95 Pulse Ox 90 Oxygen Delivery Method Room Air Weight Weight: 239 lb 3.225 oz Body Mass Index (BMI) 36.3 Physical Exam Narrative General: Alert, Oriented x3, Cooperative, No apparent distress HEENT: Atraumatic, PERRLA, EOMI, Normocephalic Oral: Moist Mucosa Neck: Supple, No JVD Lungs: Diminished, Normal air movement, No rhonchi, No wheeze, No rales, slight right upper lobe crackles Cardiovascular: Tachycardic, Regular Rhythm, Normal S1, Normal S2, No murmurs Abdomen: Soft, Non Tender, Non-Distended, No Hepato-splenomegaly Extremities: Edema, Capillary Refill Less than 3 Seconds Skin: No rashes, No breakdown Musculoskeletal: No Tenderness to Palpation of Joints or Extremities Neurological: Cranial nerves II-XII grossly intact, Motor Exam 5/5 strength thr oughout, Sensory exam intact to light touch and pain Psych/Mental Status: Normal Affect, Appropriate Results Lab / Micro Data Result Diagrams: 07/10/22 12:30 07/10/22 15:20 Labs: Laboratory Results - last 24 hr 07/10/22 12:30: WBC 13.3 H, RBC 3.80 L, Hgb 10.2 L, Hct 33.1 L, MCV 87.1, MCH 26.8 L, MCHC 30.8 L, RDW Std Deviation 47.0 H, RDW Coeff of Rex 14.9 H, Plt Count 291, MPV 11.2, Immature Gran % (Auto) 0.500, Neut % (Auto) 88.7 H, Lymph % (Auto) 5.0 L, [place] % (Auto) 5.1, Eos % (Auto) 0.4, Baso % (Auto) 0.3, Absolute Neuts (auto) 11.8 H, Absolute Lymphs (auto) 0.66 L, Nucleated RBC % 0 07/10/22 12:30: B-Natriuretic Peptide 697.0 H 07/10/22 12:30: Troponin I High Sens 11 07/10/22 12:30: Lactic Acid 1.7 07/10/22 15:20: Sodium 140, Potassium 3.7, Chloride 107, Carbon Dioxide 26.0, Anion Gap 7, BUN 12, Creatinine 0.56, Estim Creat Clear Calc 46.02, Est GFR (MDRD) Af Amer 135, Est GFR (MDRD) Non-Af 112, BUN/Creatinine Ratio 21.5 H, Glucose 153 H, Calcium 8.7, Total Bilirubin 0.60, AST 26, ALT 18, Alkaline Phosphatase 101, Total Protein 6.4, Albumin 3.5, Globulin 2.9, Albumin/Globulin Ratio 1.2 Micro: Microbiology 07/10/22 12:30 Nasal Secretion SARS-CoV-2 & FLU Antigen (Rapid) - Final Radiology Impression Chest X-Ray 07/10/22 12:23 IMPRESSION: Infiltrates in the right upper lobe and right lower lobe. Electronically Signed: Roberto Marquez MD at 13:08 EDT , Assessment & Plan Assessment/Plan (1) Atrial flutter: (2) Pneumonia: PLAN: Plan 1. Community-acquired pneumonia ? We will obtain a sputum culture ? Continue with Levaquin, based on her creatinine clearance she is every 48 hour dosing ? Incentive spirometry ? No significant wheezing on my exam however given her history will place her on DuoNebs 2. New onset A- flutter/HTN/HLD ? We will repeat an echo, she had an echo on 06/19/2019 with an EF of 65% moderately enlarged left atrium and an RVSP of 29 mmHg ? We will continue with her home beta-anneliese but will hold her Norvasc and her lisinopril as we are placing her on a Cardizem drip to control her heart rate ? Based on age and gender she qualifies for anticoagulation, can start her on Eliquis and have her follow-up with cardiology as an outpatient, of note she has had minor rectal bleeding in the past ? Can likely discontinue her aspirin and continue her Plavix on discharge with the Eliquis 3. Hypothyroidism ? Stable ? Continue with her home medication DVT: Eliquis 76 minutes spent in chart review and direct patient care Charges/Coding Visit Charges Inpatient E&M: 90439 Init Hosp L3
[2022-07-10] MEDS: levoFLOXacin IV 750 MG/150 ML BAG 100 MG IV (16:00)
[2022-07-10] MEDS: dilTIAZem 25 MG/5 ML Vial 20 MG IV BOLUS (16:21)
--- NOTE | 2022-07-10 17:22 | ECHOD_ITS ---
Reason For Study: ATRIAL FIB-FLUTTER Procedure This was a 2D Doppler, Color Flow transthoracic echocardiogram. Exam performed portable in patient room. Left Ventricle Normal LV size. Left ventricular systolic function is normal. The estimated ejection fraction is 55 %. Stage 3 diastolic dysfunction. No regional wall motion abnormalities noted. Right Ventricle Mildly dilated right ventricle. Normal systolic function. Atria The left atrium is moderately enlarged. The right atrium is moderately enlarged. Tricuspid Valve Normal tricuspid valve. Mild to moderate (1-2+) tricuspid valve insufficiency. Pulmonary artery systolic pressure is 42 mmHg. Aortic Valve Trisinus/trileaflet aortic valve. Pulmonic Valve Normal pulmonic valve. Trivial pulmonic valve insufficiency. Great Vessels Normal aortic root. The pulmonary artery is normal size. Normal inferior vena cava. Pericardium/Pleural No pericardial effusion. MMode/2D Measurements & Calculations LVIDd: 5.6 cm IVSd: 1.1 cm Ao root diam: 3.3 cm LVIDs: 3.8 cm LVPWd: 1.1 cm RVDd: 4.0 cm FS: 32.1 % LAV(MOD-bp): 95.6 ml LVAd ap4: 30.4 cm2 SV(MOD-sp4): 62.4 ml LAV(MOD-bp) Indexed: 43.9 ml/m2 LVLd ap4: 7.5 cm LAV(MOD-sp2): 92.4 ml EDV(MOD-sp4): 101.7 ml LAV(MOD-sp4): 94.2 ml EDV(sp4-el): 105.4 ml LVAs ap4: 16.7 cm2 LVLs ap4: 6.0 cm ESV(MOD-sp4): 39.3 ml ESV(sp4-el): 39.5 ml EF(MOD-sp4): 61.4 % EF(sp4-el): 62.5 % SV(sp4-el): 65.9 ml LA dimension(2D): 4.7 cm LA A4 area: 30.8 cm2 RA A4 area: 27.8 cm2 Time Measurements MV dec time: 0.18 sec Doppler Measurements & Calculations MV E max riley: 136.7 cm/sec Lat Peak E' Riley: 15.5 cm/sec Med Peak E' Riley: 13.2 cm/sec MV A max riley: 39.5 cm/sec E/E' lat: 8.8 E/E' med: 10.3 MV E/A: 3.5 Ao V2 max: 146.4 cm/sec LV V1 max: 129.0 cm/sec PA V2 max: 91.1 cm/sec Ao max P.6 mmHg LV V1 max P.7 mmHg PI end-d riley: 117.8 cm/sec TR max riley: 307.3 cm/sec TR max P.8 mmHg ECHO/Echo Complete Interpretation Summary Normal LV size. Left ventricular systolic function is normal. The estimated ejection fraction is 55 %. The left atrium is moderately enlarged. The right atrium is moderately enlarged. Mildly dilated right ventricle. Stage 3 diastolic dysfunction. Pulmonary artery systolic pressure is 42 mmHg. Ordering Physician: Hao Sánchez Referring Physician: CIRILO DIAZ Performed By: Nohemi Richardson RDCS
[2022-07-10] MEDS: Bisoprolol Fumarate 5 MG Tablet 10 MG PO (21:06)
[2022-07-10] MEDS: APIXABAN 5 MG TABLET PO (21:06)
[2022-07-10] MEDS: Atorvastatin Calcium 40 MG Tablet PO (21:06)
[2022-07-11] VITALS (27 sets, daily range): BP systolic 91–146; BP diastolic 51–100; PULSE 61–150; RESP 12–24; TEMP 36.7–37.1; O2SAT 90–98
[2022-07-11] MEDS: Ipratropium/Albuterol Sulfate 3 ML AMPUL.NEB INHALATION ×3 (02:29→19:01)
[2022-07-11 04:58] LABS: Absolute Lymphocyte Count 0.84 X10^3/uL (0.83-4.51); Basophil# 0.02 X10^3/uL; Basophil% 0.2 % (0-1); Eosinophil# 0.06 X10^3/uL; Eosinophils% 0.6 % (0-5); Hematocrit 26.2 % (37-47); Hemoglobin 8.2 g/dL (12.0-15.0); Lymphocyte # 0.84 X10^3/ul (0.83-4.51); Lymphocyte % 7.9 % (19-41); Mean Corp Hgb Conc 31.3 g/dL (32-36); Mean Corpuscular Hgb 27.1 pg (27.0-32.0); Mean Corpuscular Volume 86.5 fL (81-99); Mean Platelet Vol. 10.9 fl (6.2-12.0); Monocyte% 6.6 % (0-10); NRBC Flagged by Analyzer 0 % (0-5); Neutrophil # 8.98 X10^3/uL (2.7-7.7); Neutrophil % 84.2 % (47-70); Platelet Count 199 K/mm3 (150-450); RBC Distribution Width CV 14.8 % (11.6-14.6); RBC Distribution Width SD 47.4 fl (35.1-43.9); Red Blood Count 3.03 M/mm3 (4.2-5.4); White Blood Count 10.7 K/mm3 (4.4-11.0)
[2022-07-11 05:21] LABS: Anion Gap 8 (5-15); BUN 13 mg/dL (7-18); BUN/Creat Ratio 21.3 RATIO (10-20); Calcium,Total 8.1 mg/dL (8.5-10.1); Chloride 107 mmol/L (98-107); Creatinine, Serum 0.61 mg/dL (0.55-1.02); EST Glomerular Filtration Rate 100 mL/min (>60); Est Glom Filt Rate - Afr Amer 122 mL/min (>60); Estimated Creatinine Clearance 46.02 ml/min; Glucose 133 mg/dL (74-106); Potassium 3.4 mmol/L (3.5-5.1); Sodium Level 141 mmol/L (136-145)
[2022-07-11] MEDS: Potassium Chloride Oral Tablet 20 MEQ 40 MEQ PO (08:35)
[2022-07-11] MEDS: APIXABAN 5 MG TABLET PO ×2 (08:35→21:46)
[2022-07-11] MEDS: Clopidogrel Bisulfate 75 MG Tablet PO (08:35)
[2022-07-11] MEDS: Thyroid 15 MG Tablet 45 MG PO (10:30)
--- NOTE | 2022-07-11 11:40 | CASEMGMT ---
RN CM Face to Face with patient for initial transition planning/care coordination assessment. RN CM introduced self and role at [facility]. Patient lying in bed, alert and oriented. Patient willing to participate in assessment and is able to answer all questions appropriately. Care providers, pharmacy, and demographics verified. Patient wishes to discharge home, denies need for home health at this time. Patient states she has no further needs or concerns at this time. CM to follow for discharge planning needs that may arise. PCP: Dav Specialists: Vera room attendants Preferred [facility]acy: [facility] Insurance: Ricky BRINK Prescription Benefit: yes Living Will/HPOA: yes son Ricardo García LNOK: son, daughter Living Arrangements: Patient lives alone in a single story condo with no steps to enter. Patient states she is independent at home. Transportation: self, children DME/HHC: Patient has raised toilet, cane, walker, rollator, grab bars, and lift chair. Will monitor for home oxygen, no preferences for DME. No previous HHC or SNF Disposition Plan: Patient to discharge home with family support and follow-up plans in place. Karen BARTON, RN, CM
--- NOTE | 2022-07-11 14:43 | CHAPLAIN ---
Type of Pastoral Visit _x__ Initial Visit ___ Follow-up Visit ___ On-call Visit ___ General Patient Visit ___ Spiritual Assessment ___ Family Conference ___ Bereavement ___ Rapid Response ___ Code Blue ___ Other (describe below) Pastoral Care Referral From _x__ Patient ___ Family ___ Nurse ___ Physician ___ Returned Case Inspector ___ Metal Weather Stripper ___ Other (describe below) Sacrament/Intervention _x__ Active listening ___ Anointing ___ Jewish ___ Bereavement ___ Communion _x__ Aye exploration ___ _x_ Life review _x__ Prayer ___ Reconciliation ___ Sacrament of Sick _x__ Supportive presence ___ Wedding ___ Other (describe below) Pastoral Comments detailed and extensive visit with patient who is very welcoming and talkative about her recent health, life, moves, and family; pt has good support from family and friends; pt is using her aye to see the positives in life and hope for the future; prayer and presence received warmly
--- NOTE | 2022-07-11 14:59 | PN_ITS ---
Subjective Subjective Patient seen and examined. She had no active complaints. She was admitted with a complaint of shortness of breath and cough. Imaging showed right upper and right lower lobe infiltrate and elevated wbc. She was also found to have new onset atrial flutter and started on cardizem drip. She currently had no complaints. Her shortness of breath has improved. Objective Data Objective Data Vital Signs: Vital Signs Temp Pulse Resp BP Pulse Ox O2 Del Method O2 Flow Rate 98.2 F 75 22 H 106/51 L 96 Nasal Cannula 2 07/11/22 12:00 07/11/22 14:00 07/11/22 14:00 07/11/22 14:00 07/11/22 14:00 07/11/22 14:00 07/11/22 14:00 Oxygen Flow Rate (L/min) 2 Oxygen Delivery Method Nasal Cannula Weight: 232 lb 5.875 oz Body Mass Index (BMI) 35.3 Intake & Output: Intake and Output for Last 24 Hours 07/09/22 07/10/22 07/11/22 23:59 23:59 23:59 Intake Total 235.75 / 250.75 863.25 / 863.25 Output Total 0 / 0 Balance 235.75 / 250.75 863.25 / 863.25 Lab / Micro Data Result Diagrams: 07/11/22 03:59 07/11/22 03:59 Labs: Laboratory Results - last 24 hr 07/10/22 15:20: Sodium 140, Potassium 3.7, Chloride 107, Carbon Dioxide 26.0, Anion Gap 7, BUN 12, Creatinine 0.56, Estim Creat Clear Calc 46.02, Est GFR ( MDRD) Af Amer 135, Est GFR (MDRD) Non-Af 112, BUN/Creatinine Ratio 21.5 H, Glucose 153 H, Calcium 8.7, Total Bilirubin 0.60, AST 26, ALT 18, Alkaline Phos phatase 101, Total Protein 6.4, Albumin 3.5, Globulin 2.9, Albumin/Globulin Ratio 1.2 07/11/22 03:59: WBC 10.7, RBC 3.03 L, Hgb 8.2 L, Hct 26.2 L, MCV 86.5, MCH 27.1, MCHC 31.3 L, RDW Std Deviation 47.4 H, RDW Coeff of Rex 14.8 H, Plt Count 199, MPV 10.9, Immature Gran % (Auto) 0.500, Neut % (Auto) 84.2 H, Lymph % (Auto) 7.9 L, [place] % (Auto) 6.6, Eos % (Auto) 0.6, Baso % (Auto) 0.2, Absolute Neuts (auto) 9.0 H, Absolute Lymphs (auto) 0.84, Nucleated RBC % 0 07/11/22 03:59: Sodium 141, Potassium 3.4 L, Chloride 107, Carbon Dioxide 26.0, Anion Gap 8, BUN 13, Creatinine 0.61, Estim Creat Clear Calc 46.02, Est GFR (MDRD) Af Amer 122, Est GFR (MDRD) Non-Af 100, BUN/Creatinine Ratio 21.3 H, Glucose 133 H, Calcium 8.1 L Micro: Microbiology 07/10/22 12:30 Nasal Secretion SARS-CoV-2 & FLU Antigen (Rapid) - Final Radiography Diagnostic Testing: Radiology Impression Echocardiogram 07/10/22 17:22 Interpretation Summary Normal LV size. Left ventricular systolic function is normal. The estimated ejection fraction is 55 %. The left atrium is moderately enlarged. The right atrium is moderately enlarged. Mildly dilated right ventricle. Stage 3 diastolic dysfunction. Pulmonary artery systolic pressure is 42 mmHg. Ordering Physician: Hao Sánchez Referring Physician: CIRILO DIAZ Performed By: Nohemi Richardson RDCS Physical Exam Const alert, oriented x3 and no apparent distress HEENT normocephalic, head/scalp atraumatic, moist oral mucous membranes and oropharynx normal Eyes PERRL and EOMs intact bilaterally Neck no lymphadenopathy and supple Lymph Lymphatic: no lymphadenopathy noted and no lymphedema noted Resp normal respiratory effort, normal air movement and clear to auscultation bilaterally Cardio regular rate, regular rhythm, S1 normal heart sound, S2 normal heart sound and no murmurs Cardio Narrative: on cardizem drip, mildly tachycardic GI normal to inspection, nondistended, normoactive bowel sounds, soft to palpation and non-tender Extremity normal capillary refill and no clubbing, cyanosis or edema Skin General Skin Exam: no breakdown Neuro CN's II-XII intact bilaterally, no focal motor deficits, no sensory deficits noted and deep tendon reflexes 2+ bilaterally Coordination / Balance: [id number] test normal Psych thought process normal Assessment & Plan Assessment/Plan (1) Atrial flutter: (2) Pneumonia: (3) CHF (congestive heart failure): PLAN: Plan #Hypoxia due to community acquired pneumonia * On IV Levaquin every 48 hours. Sputum culture pending. * Urine for strep and Legionella ordered and pending. * On breathing changes and bronchodilators. Titrate oxygen to maintain saturation above 90%. * #New onset atrial flutter * Cardizem drip. Will wean off of Cardizem drip and placed on beta-anneliese. * Started on Eliquis as CHADVASC 2 score is at least 4. * 2D echo showed EF of 55% with stage II diastolic dysfunction and no regional wall motion abnormalities noted. Left atrium and right atrium moderately enl arged and pulmonary artery systolic pressure is 42 mmHg. * #Hypokalemia: Potassium is 3.4. Will replace and trend. #Acute on chronic heart failure preserved ejection fraction * BNP was elevated and echo showed stage III diastolic dysfunction with EF of 65% * Being diuresed with IV Lasix. * #Hypothyroidism: On [place] Thyroid #Hypothyroidism: On Synthroid #Hyperlipidemia: On statin #Hypertension: On metoprolol and amlodipine #History of sleep apnea: * Says she has EDDIE but does not use her CPAP machine because she does not like it and makes it uncomfortable. * Patient counseled that this is a risk factor for A-fib and she would need to see pulmonology to be fitted with CPAP machine. * DVT prophylaxis: on eliquis Charges/Coding Visit Charges Inpatient E&M: 73179 Subs Hosp L2
[2022-07-11] MEDS: 0.9% Saline Lock 10 ML Syringe IV ×3 (15:41→20:38)
[2022-07-11] MEDS: Allopurinol 300 MG Tablet PO (17:20)
[2022-07-11] MEDS: Furosemide 40 MG/4 ML Vial IV (17:20)
[2022-07-11] MEDS: Carvedilol 12.5 MG Tablet PO (17:20)
[2022-07-11] MEDS: Metoprolol Tartrate 5 MG/5 ML Vial IV (20:33)
[2022-07-11] MEDS: Atorvastatin Calcium 40 MG Tablet PO (21:46)
[2022-07-12] VITALS (27 sets, daily range): BP systolic 76–149; BP diastolic 58–91; PULSE 70–160; RESP 12–29; TEMP 36.4–36.9; O2SAT 89–100
[2022-07-12] MEDS: Metoprolol Tartrate 5 MG/5 ML Vial IV (02:51)
[2022-07-12] MEDS: 0.9% Saline Lock 10 ML Syringe IV ×4 (02:58→15:01)
--- NOTE | 2022-07-12 04:50 | PCM.HOSP.N ---
Hospitalist Note Patient with intermittent HR fluctuations likely associated with her ongoing duoneb treatments in the setting of recent RVR. Will d/c this and change to budesonide and give cardizem 10 mg IV x 1 now.
[2022-07-12 04:55] LABS: Absolute Lymphocyte Count 0.93 X10^3/uL (0.83-4.51); Basophil# 0.03 X10^3/uL; Basophil% 0.3 % (0-1); Eosinophil# 0.27 X10^3/uL; Eosinophils% 3.1 % (0-5); Hematocrit 26.7 % (37-47); Hemoglobin 8.2 g/dL (12.0-15.0); Lymphocyte # 0.93 X10^3/ul (0.83-4.51); Lymphocyte % 10.5 % (19-41); Mean Corp Hgb Conc 30.7 g/dL (32-36); Mean Corpuscular Hgb 26.5 pg (27.0-32.0); Mean Corpuscular Volume 86.4 fL (81-99); Mean Platelet Vol. 11.1 fl (6.2-12.0); Monocyte# 0.57 X10^3/uL; Monocyte% 6.5 % (0-10); NRBC Flagged by Analyzer 0 % (0-5); Neutrophil # 6.99 X10^3/uL (2.7-7.7); Neutrophil % 79.1 % (47-70); Platelet Count 209 K/mm3 (150-450); RBC Distribution Width CV 14.8 % (11.6-14.6); RBC Distribution Width SD 46.7 fl (35.1-43.9); Red Blood Count 3.09 M/mm3 (4.2-5.4); White Blood Count 8.8 K/mm3 (4.4-11.0)
[2022-07-12] MEDS: Budesonide Respules 0.5 MG/2 ML AMPUL.NEB. INHALATION ×2 (04:58→18:53)
[2022-07-12] MEDS: dilTIAZem 25 MG/5 ML Vial 10 MG IV BOLUS (05:03)
[2022-07-12 05:11] LABS: Anion Gap 6 (5-15); BUN 13 mg/dL (7-18); BUN/Creat Ratio 24.3 RATIO (10-20); Calcium,Total 8.1 mg/dL (8.5-10.1); Chloride 107 mmol/L (98-107); Creatinine, Serum 0.53 mg/dL (0.55-1.02); EST Glomerular Filtration Rate 117 mL/min (>60); Est Glom Filt Rate - Afr Amer 142 mL/min (>60); Estimated Creatinine Clearance 46.02 ml/min; Glucose 126 mg/dL (74-106); Potassium 3.6 mmol/L (3.5-5.1); Sodium Level 140 mmol/L (136-145)
[2022-07-12] MEDS: guaiFENesin 10 ML UDC (200MG/10ML) PO (05:42)
[2022-07-12] MEDS: Carvedilol 12.5 MG Tablet PO (08:38)
[2022-07-12] MEDS: APIXABAN 5 MG TABLET PO (08:38)
[2022-07-12] MEDS: Clopidogrel Bisulfate 75 MG Tablet PO (08:38)
[2022-07-12] MEDS: Thyroid 15 MG Tablet 45 MG PO (08:38)
[2022-07-12] MEDS: levoFLOXacin IV 750 MG/150 ML BAG 100 MG IV (10:43)
[2022-07-12] MEDS: Metoprolol Tartrate 25 MG Tablet PO ×2 (10:44→20:49)
[2022-07-12] MEDS: Furosemide 40 MG/4 ML Vial IV (10:46)
--- NOTE | 2022-07-12 12:04 | CT_ITS ---
We are attempting to reach an attending provider to discuss findings. An addendum with communication details will be sent when the communication is complete. STUDY: CTA CHEST REASON FOR EXAM: Female, 81 years old. tachycardia,cough,sob RADIATION DOSAGE (If Supplied By Facility): CTDIvol = ( 16.04 ) mGy, DLP = ( 529.00 ) mGycm TECHNIQUE: The examination was performed with the intravenous administration of 100mL Isovue-370. Post-processing of the angiographic images was performed, with multiplanar reformation and 3D reconstruction. Individualized dose optimization techniques were used for this CT. COMPARISON: 03/01/2022 FINDINGS: Normal enhancement of the main pulmonary artery and right and left pulmonary arteries. Normal enhancement of the bilateral peripheral pulmonary arteries. Filling defects in subsegmental branches to the right lower lobe. 3.5 cm ectasia ascending thoracic aorta. There is no demonstrated aortic dissection. Normal heart and pericardium. Right hilar adenopathy. Stable retrocardiac hiatal hernia. Normal visualized trachea and bronchi. Alveolar infiltrates in the right upper and middle lobes with multiple small areas of consolidation. Trace right pleural effusion. Normal chest wall structures. No acute or aggressive abnormality. No acute findings in the upper abdomen. CT/CTA Chest W/WO Contrast IMPRESSION: Study positive for pulmonary emboli in subsegmental branches to the right lower lobe. Right upper and middle lobe infiltrates with areas of consolidation. Findings consistent with pneumonia. Associated right hilar adenopathy. Recommend follow-up to resolution. Electronically Signed: Nikos Hernandez MD at 15:47 EDT ,
--- NOTE | 2022-07-12 13:26 | PN_ITS ---
Subjective Subjective Patient seen and examined. She had no complaints today but said during the night she got very tachycardic on getting up. She denies any chest pain, palpitations, shortness of breath, dizziness or lightheadedness. Review of systems otherwise negative. Patient with blood pressure running on the low side of normal. However this morning her heart rate was also elevated. Head carvedilol was discontinued at 9:00 and she was switched to metoprolol. However it turns out that she had already received the carvedilol and was given the metoprolol that was ordered in addition. Patient subsequently became hypotensi ve this afternoon with blood pressure dropping to the 70s systolic. Objective Data Objective Data Vital Signs: Vital Signs Temp Pulse Resp BP Pulse Ox O2 Del Method O2 Flow Rate 97.8 F 149 H 17 76/58 L 97 Room Air 2 07/12/22 13:02 07/12/22 13:02 07/12/22 13:02 07/12/22 13:02 07/12/22 13:02 07/12/22 13:02 07/12/22 08:43 Oxygen Flow Rate (L/min) 2 Oxygen Delivery Method Room Air Weight: 232 lb 5.875 oz Body Mass Index (BMI) 35.3 Intake & Output: Intake and Output for Last 24 Hours 07/10/22 07/11/22 07/12/22 23:59 23:59 23:59 Intake Total 235.75 / 250.75 1371.58 / 1671.58 1350 / 1350 Output Total 0 / 0 Balance 235.75 / 250.75 1371.58 / 1671.58 1350 / 1350 Lab / Micro Data Result Diagrams: 07/12/22 04:01 07/12/22 04:01 Labs: Laboratory Results - last 24 hr 07/12/22 04:01: WBC 8.8, RBC 3.09 L, Hgb 8.2 L, Hct 26.7 L, MCV 86.4, MCH 26.5 L , MCHC 30.7 L, RDW Std Deviation 46.7 H, RDW Coeff of Rex 14.8 H, Plt Count 209, MPV 11.1, Immature Gran % (Auto) 0.500, Neut % (Auto) 79.1 H, Lymph % (Auto) 10.5 L, [place] % (Auto) 6.5, Eos % (Auto) 3.1, Baso % (Auto) 0.3, Absolute Neuts (auto) 7.0, Absolute Lymphs (auto) 0.93, Nucleated RBC % 0 07/12/22 04:01: Sodium 140, Potassium 3.6, Chloride 107, Carbon Dioxide 27.0, Anion Gap 6, BUN 13, Creatinine 0.53 L, Estim Creat Clear Calc 46.02, Est GFR (MDRD) Af Amer 142, Est GFR (MDRD) Non-Af 117, BUN/Creatinine Ratio 24.3 H, Glucose 126 H, Calcium 8.1 L Micro: Microbiology 07/10/22 15:30 Blood Culture (Wb) - Anticubital Left Blood Culture - Preliminary No growth in 48 hours. 07/10/22 15:30 Blood Culture (Wb) - Anticubital Right Blood Culture - Preliminary No growth in 48 hours. 07/10/22 12:30 Nasal Secretion SARS-CoV-2 & FLU Antigen (Rapid) - Final Physical Exam Const alert, oriented x3 and no apparent distress HEENT normocephalic, head/scalp atraumatic and moist oral mucous membranes Eyes PERRL Neck supple Lymph Lymphatic: no lymphadenopathy noted and no lymphedema noted Resp Resp Narrative: diminished breath sounds bibasally, no wheezes or crackles. On 2L of oxygen Cardio Cardio Narrative: Tachycardic with heart rate in the 140s at time of review. GI normal to inspection, nondistended, normoactive bowel sounds, soft to palpation and non-tender Extremity normal capillary refill, no clubbing, cyanosis or edema and no calf tenderness Skin General Skin Exam: no breakdown Neuro CN's II-XII intact bilaterally, no focal motor deficits, no sensory deficits noted and deep tendon reflexes 2+ bilaterally Assessment & Plan Assessment/Plan (1) Atrial flutter: (2) CHF (congestive heart failure): (3) Pneumonia: PLAN: Plan #Hypoxia due to community acquired pneumonia * On IV Levaquin every 48 hours. Sputum culture pending. * Urine for strep and Legionella antigens negative. * On breathing changes and bronchodilators. Titrate oxygen to maintain saturation above 90%. * #New onset atrial flutter * now on PO carvedilol. However, she was tachycardic overnight * heart rate still elevated this morning. She was given a dose of cardizem bolus. * Carvedilol was switched to metoprolol this morning at 9 AM. However patient had already been given carvedilol that was scheduled to be given at 10:00. She subsequently also received a dose of metoprolol. * 2D echo showed EF of 55% with stage II diastolic dysfunction and no regional wall motion abnormalities noted. Left atrium and right atrium moderately enl arged and pulmonary artery systolic pressure is 42 mmHg. * CT of the chest ordered to rule out a PE in light of patient's persistent tachycardia. * I am hesitant to give a drip now as that will further worsen the blood pressure. Will likely benefit from Cardizem drip. Will consult cardiology if CT is negative for PE. * #Iatrogenic hypotension * Patient inadvertently given metoprolol and carvedilol today. * Blood pressure now down in the 70s. Patient is still very tachycardic but I am unable to give any rate limiting medications in light of the low blood pressure. * Will give a bolus of normal saline 1 L and transferred to ICU for closer monitoring overnight. * Consult critical care as patient is being transferred to the ICU. #Hypokalemia: Potassium is 3.4. Will replace and trend. #Acute on chronic heart failure preserved ejection fraction * BNP was elevated and echo showed stage III diastolic dysfunction with EF of 65% * Being diuresed with IV Lasix. * Hold Lasix on account of patient's hypotension * #Hypothyroidism: On [place] Thyroid #Hyperlipidemia: On statin #Hypertension: On metoprolol and amlodipine #History of sleep apnea: * Says she has EDDIE but does not use her CPAP machine because she does not like it and makes it uncomfortable. * Patient counseled that this is a risk factor for A-fib and she would need to see pulmonology to be fitted with CPAP machine. * DVT prophylaxis: on eliquis Disposition; transfer to ICU for closer monitoring in light of hypotension and persistent tachcyardia Charges/Coding Visit Charges Inpatient E&M: 50543 [facility] Hosp L3
[2022-07-12] MEDS: 0.9% Normal Saline 1,000 ML 999 ML IV (13:40)
[2022-07-12] MEDS: Adenosine 6 MG/2 ML Syringe 12 MG IV (14:18)
--- NOTE | 2022-07-12 14:22 | PCM.CONS.C ---
Assessment & Plan Assessment/Plan (1) Atrial flutter: PLAN: Controlled ventricular rate with metoprolol. Also start on diltiazem infusion. Stop amlodipine. Start on Eliquis for prevention of thromboembolic phenomenon. Chronic oral anticoagulation discussed with patient. Risks and benefits discussed. She understands and agrees with the plan. (2) Pneumonia: PLAN: As per internal medicine. On antibiotics. (3) Hypertension: PLAN: Transient hypotension this morning. Presently normotensive. Continue medications. (4) Anemia: QUALIFIERS: Anemia type: unspecified type Qualified Code(s): D64.9 - Anemia, unspecified PLAN: Monitoring globin as per internal medicine. HPI Consult Data Date of Consult: 07/12/22 HPI Narrative Reason for Consultation: Tachycardia HPI Narrative: The patient had presented to the hospital with complaints of cough, shortness of breath and low-grade fever. She was diagnosed with right-sided pneumonia and is being treated for that. At presentation to the hospital, she was noted to be in atrial flutter which converted to normal sinus rhythm on its own. However this afternoon she is again noticed to be tachycardic. We are asked for evaluation and management. Patient denies any palpitations. Denies any chest pains. Her complaints of shortness of breath are better. Denies any previous history of cardiac arrhythmias. No history of coronary artery disease. [facility] Medical History (Updated 07/12/22 @ 14:[address] Pao Wu MD) Atrial fibrillation Chest pain Chronic pain CPAP (continuous positive airway pressure) dependence GERD (gastroesophageal reflux disease) Gout Hypertension Hypothyroidism Hypothyroidism Non-smoker EDDIE (obstructive sleep apnea) Stroke/cerebrovascular accident Home Medications B complex-C 500 mg-folic 400 mcg-zinc 23.9 mg-copper 3 mg-vit E tablet 1 tab PO DAILY supplement 06/19/19 [History Last Taken 06/18/19] allopurinol 300 mg tablet 300 mg PO DAILY gout 06/19/19 [History Last Taken 06/18/19] amlodipine 5 mg tablet 5 mg PO DAILY bp 06/19/19 [History Last Taken 06/18/19] ascorbic acid (vitamin C) 1,000 mg tablet 1,000 mg PO DAILY supplement 06/19/19 [History Last Taken 06/18/19] bisoprolol fumarate 10 mg tablet 10 mg PO QHS heart 06/19/19 [History Last Taken 06/18/19] lisinopril 20 mg tablet 20 mg PO BID bp 06/19/19 [History Last Taken 06/18/19] multivit with bjcupdni-wddu-LQ-lutein 8 mg iron-400 mcg-300 mcg tablet 1 tab PO DAILY supplement 06/19/19 [History Last Taken 06/18/19] thyroid (pork) 30 mg tablet 45 mg PO DAILY thyroid 06/19/19 [History Last Taken 06/18/19] aspirin 81 mg tablet 81 mg PO DAILY 07/10/22 [History Last Taken Unknown] atorvastatin 40 mg tablet 40 mg PO QHS 07/10/22 [History Last Taken Unknown] clopidogrel 75 mg tablet (Plavix) 75 mg PO DAILY 07/10/22 [History Last Taken Unknown] Allergy/AdvReac Type Severity Reaction Status Date / Time Penicillins [PCN] Allergy Shortness Verified 07/10/22 12:02 of breath Family History (Updated 07/10/22 @ 16:[address] Hao Sánchez MD) Other CAD (coronary artery disease) Diabetes Heart disease Surgical History Hx of appendectomy Hx of cholecystectomy Social History household members: none Smoking Status: Never smoker substance use type: does not use Physical Exam Narrative Comfortable. No apparent distress. Sitting up in the bed. Heart sounds 1 and 2 are noted. Regular but tachycardic. Lung examination shows some crackles on the right side. Abdomen is soft. Neurological alert oriented x3. No ankle edema noted. Risk Stratification Risk Stratification Applicable: No Objective Data Vital Signs: Vital Signs Temp Pulse Resp BP Pulse Ox O2 Del Method O2 Flow Rate 97.8 F 146 H 17 124/84 H 97 Room Air 2 07/12/22 13:02 07/12/22 14:16 07/12/22 13:02 07/12/22 14:16 07/12/22 13:02 07/12/22 13:02 07/12/22 08:43 Oxygen Flow Rate (L/min) 2 Oxygen Delivery Method Room Air Weight: 232 lb 5.875 oz Body Mass Index (BMI) 35.3 Intake & Output: Intake and Output for Last 24 Hours 07/10/22 07/11/2223 23:59 23:59 23:59 Intake Total 235.75 / 250.75 1371.58 / 1671.58 1350 / 1350 Output Total 0 / 0 Balance 235.75 / 250.75 1371.58 / 1671.58 1350 / 1350 Lab / Micro Data Result Diagrams: 07/12/22 04:01 07/12/22 04:01 Labs: Laboratory Results - last 24 hr 07/12/22 04:01: WBC 8.8, RBC 3.09 L, Hgb 8.2 L, Hct 26.7 L, MCV 86.4, MCH 26.5 L, MCHC 30.7 L, RDW Std Deviation 46.7 H, RDW Coeff of Rex 14.8 H, Plt Count 209, MPV 11.1, Immature Gran % (Auto) 0.500, Neut % (Auto) 79.1 H, Lymph % (Auto) 10.5 L, [place] % (Auto) 6.5, Eos % (Auto) 3.1, Baso % (Auto) 0.3, Absolute Neuts (auto) 7.0, Absolute Lymphs (auto) 0.93, Nucleated RBC % 0 07/12/22 04:01: Sodium 140, Potassium 3.6, Chloride 107, Carbon Dioxide 27.0, Anion Gap 6, BUN 13, Creatinine 0.53 L, Estim Creat Clear Calc 46.02, Est GFR (MDRD) Af Amer 142, Est GFR (MDRD) Non-Af 117, BUN/Creatinine Ratio 24.3 H, Glucose 126 H, Calcium 8.1 L Micro: Microbiology 07/10/22 15:30 Blood Culture (Wb) - Anticubital Left Blood Culture - Preliminary No growth in 48 hours. 07/10/22 15:30 Blood Culture (Wb) - Anticubital Right Blood Culture - Preliminary No growth in 48 hours. Rhythm Strip Rhythm Strip: Atrial flutter Rate: 150 Cardiology Labs/Tests 07/12/22 04:01: WBC 8.8, RBC 3.09 L, Hgb 8.2 L, Hct 26.7 L, MCV 86.4, MCH 26.5 L, MCHC 30.7 L, Plt Count 209, MPV 11.1, Immature Gran % (Auto) 0.500, Neut % (Auto) 79.1 H, Lymph % (Auto) 10.5 L, [place] % (Auto) 6.5, Eos % (Auto) 3.1, Baso % (Auto) 0.3, Absolute Neuts (auto) 7.0, Nucleated RBC % 0 07/12/22 04:01: Sodium 140, Potassium 3.6, Chloride 107, Carbon Dioxide 27.0, Anion Gap 6, BUN 13, Creatinine 0.53 L, Est GFR (MDRD) Af Amer 142, Est GFR (MDRD) Non-Af 117, BUN/Creatinine Ratio 24.3 H, Glucose 126 H, Calcium 8.1 L Rhythm: Patient was administered 12 mg of adenosine to induce transient heart block. Underlying rhythm was noted to be atrial flutter. EKG: EKG on admission showed atrial flutter with 2-1 conduction. Subsequent EKG showed normal sinus rhythm. ECHO: Normal LV systolic function. Stress Test: Cardiac Cath: PCI: CT Surgery: Holter monitor: EPS: PPM: CXR: Chest CT Scan:
--- NOTE | 2022-07-12 14:58 | NURSING ---
1400-Dr Wu at bedside. V/o for 12mg adenosine to be given. See MAR, telemetry strip. 1419-pt transported to CT by MACHINE APPLICATOR C[employer]ER and norris RN. 1435-Report called to Abigail NEVAREZ, pt transported to ICU.
[2022-07-12] MEDS: dilTIAZem 25 MG/5 ML Vial 20 MG IV BOLUS (15:01)
[2022-07-12] MEDS: Allopurinol 300 MG Tablet PO (17:45)
[2022-07-12] MEDS: APIXABAN 5 MG TABLET 10 MG PO (20:49)
[2022-07-12] MEDS: Atorvastatin Calcium 40 MG Tablet PO (20:52)
[2022-07-13] VITALS (19 sets, daily range): BP systolic 113–155; BP diastolic 53–103; PULSE 69–139; RESP 14–28; TEMP 36.2–37.4; O2SAT 91–98; BMI 35.8
[2022-07-13 04:01] LABS: Absolute Lymphocyte Count 0.97 X10^3/uL (0.83-4.51); Absolute Neutrophil Count 7.7 X10^3/uL (2.0-7.7); Basophil# 0.03 X10^3/uL; Basophil% 0.3 % (0-1); Eosinophil# 0.36 X10^3/uL; Eosinophils% 3.7 % (0-5); Hematocrit 29.1 % (37-47); Hemoglobin 8.9 g/dL (12.0-15.0); Lymphocyte # 0.97 X10^3/ul (0.83-4.51); Mean Corp Hgb Conc 30.6 g/dL (32-36); Mean Corpuscular Hgb 26.3 pg (27.0-32.0); Mean Corpuscular Volume 85.8 fL (81-99); Mean Platelet Vol. 10.8 fl (6.2-12.0); Monocyte# 0.65 X10^3/uL; Monocyte% 6.7 % (0-10); NRBC Flagged by Analyzer 0 % (0-5); Neutrophil # 7.67 X10^3/uL (2.7-7.7); Platelet Count 235 K/mm3 (150-450); RBC Distribution Width CV 14.5 % (11.6-14.6); RBC Distribution Width SD 45.2 fl (35.1-43.9); Red Blood Count 3.39 M/mm3 (4.2-5.4); White Blood Count 9.7 K/mm3 (4.4-11.0)
[2022-07-13 04:06] LABS: Anion Gap 7 (5-15); BUN 10 mg/dL (7-18); BUN/Creat Ratio 19.7 RATIO (10-20); Calcium,Total 8.4 mg/dL (8.5-10.1); Chloride 106 mmol/L (98-107); Creatinine, Serum 0.51 mg/dL (0.55-1.02); EST Glomerular Filtration Rate 124 mL/min (>60); Est Glom Filt Rate - Afr Amer 150 mL/min (>60); Estimated Creatinine Clearance 46.02 ml/min; Glucose 137 mg/dL (74-106); Potassium 3.4 mmol/L (3.5-5.1); Sodium Level 141 mmol/L (136-145)
--- NOTE | 2022-07-13 06:45 | CON.PCM.CC_ITS ---
Assessment & Plan Assessment/Plan (1) Pneumonia: PLAN: Plan RECOMMENDATIONS: 1. Continue medical management of atrial fibrillation per cardiology. 2. Continue Levaquin to complete 7 days of therapy. 3. Continue Eliquis as ordered. 4. Wean supplemental oxygen to maintain saturations at or above 90%. 5. Encourage incentive spirometer use and mobilize patient as tolerated. 6. The patient is medically stable for transfer out of the intensive care unit. 7. Will sign off from a critical care perspective. Please call with any additional questions. IMPRESSIONS: 1. Shortness of breath and hypoxemia Most likely multifactorial in etiology with underlying pneumonia, pulmonary emboli and atrial fibrillation with RVR contributing. I agree with continuing Levaquin to complete a 7-day treatment course. Cardiology is following to assist with medical management of the patient's atrial fibrillation. Plan to continue Eliquis as ordered to address her underlying PE. Continue to wean supplemental oxygen for saturations greater than 90%. Diuretics can be utilized, as needed, to maintain euvolemic state. Encourage incentive spirometer use and mobilize patient as tolerated. 2. Atrial fibrillation with RVR Continue medical management per cardiology recommendations. 3. History of hypertension/hyperlipidemia/obstructive sleep apnea/hypothyroidism Complicates care, management, recovery and prognosis. Continue home medications as indicated. This note was generated with [employer] dictation software. It may contain incorrect words, spelling, and punctuation that were not noted in checking the note before signing. HPI Consult Data Date of Consult: 07/13/22 HPI Narrative Reason for Consultation: Atrial fibrillation with RVR, hypotension HPI Narrative: The patient is a 81-year-old female, with a history as outlined below, who presented to the emergency department on July 10 with progressive shortness of breath. The patient has an apparent history of hypertension, hypothyroidism and obstructive sleep apnea. On initial presentation to the hospital, the patient was documented to be afeb rile with tachycardia, tachypnea and hypertension. Her preliminary lab work demonstrated a white blood cell count of 13,000. Initial chemistry profile was unrevealing. Lactate was within normal limits. Troponin was negative. BNP was elevated at 697. Chest x-ray demonstrated infiltrate in the right upper and lower lobes. The patient was initially started on a Cardizem drip in the emergency department. She was admitted to the progressive care unit for further management. The patient was maintained on antimicrobials over concerns for potential pneumonia. Surface echocardiogram demonstrated normal LV size and function with an ejection fraction of 55% and stage III diastolic dysfunction. The left atrium was moderately enlarged with a pulmonary artery systolic pressure of 42 mmHg. CTA chest obtained on July 12 demonstrated right lower lobe subsegmental pulmonary emboli. On July 12, the patient apparently became transiently hypotensive. She was subsequently transferred to the medical intensive care unit for further management. At the present time, the patient is being managed with Cardizem for heart rate control, by cardiology. She remains on scheduled IV Lasix and Eliqu is. She is otherwise hemodynamically stable. [facility] Medical History (Updated 07/12/22 @ 14:[address] Pao Wu MD) Atrial fibrillation Chest pain Chronic pain CPAP (continuous positive airway pressure) dependence GERD (gastroesophageal reflux disease) Gout Hypertension Hypothyroidism Hypothyroidism Non-smoker EDDIE (obstructive sleep apnea) Stroke/cerebrovascular accident Home Medications B complex-C 500 mg-folic 400 mcg-zinc 23.9 mg-copper 3 mg-vit E tablet 1 tab PO DAILY supplement 06/19/19 [History Last Taken 06/18/19] allopurinol 300 mg tablet 300 mg PO DAILY gout 06/19/19 [History Last Taken 06/18/19] amlodipine 5 mg tablet 5 mg PO DAILY bp 06/19/19 [History Last Taken 06/18/19] ascorbic acid (vitamin C) 1,000 mg tablet 1,000 mg PO DAILY supplement 06/19/19 [History Last Taken 06/18/19] bisoprolol fumarate 10 mg tablet 10 mg PO QHS heart 06/19/19 [History Last Taken 06/18/19] lisinopril 20 mg tablet 20 mg PO BID bp 06/19/19 [History Last Taken 06/18/19] multivit with labfoinu-wdff-MB-lutein 8 mg iron-400 mcg-300 mcg tablet 1 tab PO DAILY supplement 06/19/19 [History Last Taken 06/18/19] thyroid (pork) 30 mg tablet 45 mg PO DAILY thyroid 06/19/19 [History Last Taken 06/18/19] aspirin 81 mg tablet 81 mg PO DAILY 07/10/22 [History Last Taken Unknown] atorvastatin 40 mg tablet 40 mg PO QHS 07/10/22 [History Last Taken Unknown] clopidogrel 75 mg tablet (Plavix) 75 mg PO DAILY 07/10/22 [History Last Taken Unknown] Allergy/AdvReac Type Severity Reaction Status Date / Time Penicillins [PCN] Allergy Shortness Verified 07/10/22 12:02 of breath Family History (Updated 07/10/22 @ 16:[address] Hao Sánchez MD) Other CAD (coronary artery disease) Diabetes Heart disease Surgical History Hx of appendectomy Hx of cholecystectomy Social History household members: none Smoking Status: Never smoker substance use type: does not use ROS ROS Narrative 10 systems reviewed with pertinent positives as noted in the HPI above. Physical Exam Const alert and no apparent distress General Appearance: cooperative HEENT normocephalic and head/scalp atraumatic Eyes PERRL, EOMs intact bilaterally and conjunctivae normal Neck supple General: trachea midline Chest inspection of chest normal Resp normal respiratory effort Auscultation: Negative for rales, rhonchi or wheezes Cardio S1 normal heart sound and S2 normal heart sound Rhythm: abnormal rhythm GI normal to inspection, nondistended, normoactive bowel sounds Extremity no clubbing, cyanosis or edema Skin no rashes or lesions noted Neuro oriented x3, CN's II-XII intact bilaterally, moves all extremities and no focal motor deficits Psych cooperative and affect normal Lab / Micro Data Result Diagrams: 07/13/22 03:30 07/13/22 03:30 Labs: Laboratory Results - last 24 hr 07/12/22 04:01: TSH 3.00 07/13/22 03:30: WBC 9.7, RBC 3.39 L, Hgb 8.9 L, Hct 29.1 L, MCV 85.8, MCH 26.3 L , MCHC 30.6 L, RDW Std Deviation 45.2 H, RDW Coeff of Rex 14.5, Plt Count 235, MPV 10.8, Immature Gran % (Auto) 0.300, Neut % (Auto) 79.0 H, Lymph % (Auto) 10.0 L, [place] % (Auto) 6.7, Eos % (Auto) 3.7, Baso % (Auto) 0.3, Absolute Neuts (auto) 7.7, Absolute Lymphs (auto) 0.97, Nucleated RBC % 0 07/13/22 03:30: Sodium 141, Potassium 3.4 L, Chloride 106, Carbon Dioxide 28.0, Anion Gap 7, BUN 10, Creatinine 0.51 L, Estim Creat Clear Calc 46.02, Est GFR (MDRD) Af Amer 150, Est GFR (MDRD) Non-Af 124, BUN/Creatinine Ratio 19.7, Glucose 137 H, Calcium 8.4 L Micro: Microbiology 07/10/22 15:30 Blood Culture (Wb) - Anticubital Left Blood Culture - Preliminary No growth in 48 hours. 07/10/22 15:30 Blood Culture (Wb) - Anticubital Right Blood Culture - Preliminary No growth in 48 hours. Rhythm Strip Rhythm Strip: Atrial flutter Rate: 150 Radiology Impression Chest CTA 07/12/22 12:04 IMPRESSION: Study positive for pulmonary emboli in subsegmental branches to the right lower lobe. Right upper and middle lobe infiltrates with areas of consolidation. Findings consistent with pneumonia. Associated right hilar adenopathy. Recommend follow-up to resolution. Electronically Signed: Nikos Hernandez MD at 15:47 EDT , ADDENDUM: 07/12/22 1623 IMPRESSION: Study positive for pulmonary emboli in subsegmental branches to the right lower lobe. Right upper and middle lobe infiltrates with areas of consolidation. Findings consistent with pneumonia. Associated right hilar adenopathy. Recommend follow-up to resolution. N.B. : The above Results were Read Back by Nikos Hernandez MD to Silvana Morales MD, and understanding confirmed on 07/12/2022 16:16:29 (ET). Electronically Signed: Nikos Hernandez MD at 15:47 EDT , Charges/Coding Visit Charges Inpatient E&M: 90730 Init Hosp L3
[2022-07-13] MEDS: Budesonide Respules 0.5 MG/2 ML AMPUL.NEB. INHALATION ×2 (07:07→20:17)
[2022-07-13] MEDS: APIXABAN 5 MG TABLET 10 MG PO ×2 (09:27→23:30)
[2022-07-13] MEDS: Metoprolol Tartrate 25 MG Tablet PO ×2 (09:31→23:31)
[2022-07-13] MEDS: Thyroid 15 MG Tablet 45 MG PO (09:53)
--- NOTE | 2022-07-13 11:43 | PN_ITS ---
Subjective Subjective Patient seen and examined. She said she felt much better today. She was transferred to the ICU o/a of hypotension. She was also tachycardic so was started on Cardizem drip. Cardiology is on board. CT of the chest did show mainly right-sided subsegmental PE and her Eliquis was switched to therapeutic dose. She denies any dizziness, lightheadedness, nausea vomiting or any other symptoms. She feels much better. Review of systems otherwise negative. Objective Data Objective Data Vital Signs: Vital Signs Temp Pulse Resp BP Pulse Ox O2 Del Method O2 Flow Rate 98.9 F 107 H 28 H 127/89 H 96 Nasal Cannula 2 07/13/22 09:00 07/13/22 09:31 07/13/22 09:00 07/13/22 09:00 07/13/22 09:00 07/13/22 09:00 07/13/22 09:00 Oxygen Flow Rate (L/min) 2 Oxygen Delivery Method Nasal Cannula Weight: 235 lb 7.259 oz Body Mass Index (BMI) 35.8 Intake & Output: Intake and Output for Last 24 Hours 07/11/22 07/12/22 07/13/22 23:59 23:59 23:59 Intake Total 1371.58 / 1671.58 2557.42 / 2692.42 270.0 / 270.0 Output Total 600 / 1800 1450 / 1450 Balance 1371.58 / 1671.58 1957.42 / 892.42 -1180.0 / -1180.0 Lab / Micro Data Result Diagrams: 07/13/22 03:30 07/13/22 03:30 Labs: Laboratory Results - last 24 hr 07/12/22 04:01: TSH 3.00 07/13/22 03:30: WBC 9.7, RBC 3.39 L, Hgb 8.9 L, Hct 29.1 L, MCV 85.8, MCH 26.3 L , MCHC 30.6 L, RDW Std Deviation 45.2 H, RDW Coeff of Rex 14.5, Plt Count 235, MPV 10.8, Immature Gran % (Auto) 0.300, Neut % (Auto) 79.0 H, Lymph % (Auto) 10.0 L, [place] % (Auto) 6.7, Eos % (Auto) 3.7, Baso % (Auto) 0.3, Absolute Neuts (auto) 7.7, Absolute Lymphs (auto) 0.97, Nucleated RBC % 0 07/13/22 03:30: Sodium 141, Potassium 3.4 L, Chloride 106, Carbon Dioxide 28.0, Anion Gap 7, BUN 10, Creatinine 0.51 L, Estim Creat Clear Calc 46.02, Est GFR (MDRD) Af Amer 150, Est GFR (MDRD) Non-Af 124, BUN/Creatinine Ratio 19.7, Glucose 137 H, Calcium 8.4 L Micro: Microbiology 07/10/22 15:30 Blood Culture (Wb) - Anticubital Left Blood Culture - Preliminary No growth in 48 hours. 07/10/22 15:30 Blood Culture (Wb) - Anticubital Right Blood Culture - Preliminary No growth in 48 hours. 07/10/22 12:30 Nasal Secretion SARS-CoV-2 & FLU Antigen (Rapid) - Final Radiography Diagnostic Testing: Radiology Impression Chest CTA 07/12/22 12:04 IMPRESSION: Study positive for pulmonary emboli in subsegmental branches to the right lower lobe. Right upper and middle lobe infiltrates with areas of consolidation. Findings consistent with pneumonia. Associated right hilar adenopathy. Recommend follow-up to resolution. Electronically Signed: Nikos Hernandez MD at 15:47 EDT Reading Location ID and State: [facility] / [place] Tel , Service support , ADDENDUM: 07/12/22 1623 IMPRESSION: Study positive for pulmonary emboli in subsegmental branches to the right lower lobe. Right upper and middle lobe infiltrates with areas of consolidation. Findings consistent with pneumonia. Associated right hilar adenopathy. Recommend follow-up to resolution. N.B. : The above Results were Read Back by Nikos Hernandez MD to Silvana Morales MD, and understanding confirmed on 07/12/2022 16:16:29 (ET). Electronically Signed: Nikos Hernandez MD at 15:47 EDT , Rhythm Strip Rhythm Strip: Atrial flutter Rate: 150 Physical Exam Const alert, oriented x3 and no apparent distress HEENT normocephalic, head/scalp atraumatic, moist oral mucous membranes and oropharynx normal Eyes PERRL and EOMs intact bilaterally Neck no lymphadenopathy and supple Lymph Lymphatic: no lymphadenopathy noted and no lymphedema noted Resp normal respiratory effort, normal air movement and clear to auscultation bilaterally Resp Narrative: diminished breath sounds bibasally, no wheezes or crackles. On 2L of oxygen Cardio regular rhythm, S1 normal heart sound, S2 normal heart sound and no murmurs Cardio Narrative: Tachycardia has improved. She remains on Cardizem drip. Heart rate is at 107 at time of review. GI normal to inspection, nondistended, normoactive bowel sounds, soft to palpation and non-tender Extremity normal capillary refill, no clubbing, cyanosis or edema and no calf tenderness Skin General Skin Exam: no breakdown Neuro CN's II-XII intact bilaterally, no focal motor deficits, no sensory deficits noted and deep tendon reflexes 2+ bilaterally Coordination / Balance: [id number] test normal Psych thought process normal Assessment & Plan Assessment/Plan (1) Atrial flutter: (2) CHF (congestive heart failure): (3) Pneumonia: PLAN: Plan #Hypoxia due to community acquired pneumonia * On IV Levaquin every 48 hours. Sputum culture pending. * Urine for strep and Legionella antigens negative. * On breathing changes and bronchodilators. Titrate oxygen to maintain satu ration above 90%. * #New onset atrial flutter with RVR * Cardiology on board. Remains on Cardizem drip. This was started yesterday by cardiology. * 2D echo showed EF of 55% with stage II diastolic dysfunction and no regional wall motion abnormalities noted. Left atrium and right atrium moderately e nlarged and pulmonary artery systolic pressure is 42 mmHg. * try to wean off cardizem drip as tolerated #PE * CTA of the chest done did not show right-sided subsegmental PE. Eliquis dose increased to therapeutic dose of 10 mg twice daily. * 2D echo as above. * #Iatrogenic hypotension * resolved. * BP now normalised * #Hypokalemia: Potassium is still 3.4 today. Will replace and trend. #Acute on chronic heart failure preserved ejection fraction * BNP was elevated and echo showed stage III diastolic dysfunction with EF of 65% * Being diuresed with IV Lasix. * will resume lasix today. * #Hypothyroidism: On [place] Thyroid #Hyperlipidemia: On statin #Hypertension: On metoprolol and amlodipine #History of sleep apnea: * Says she has EDDIE but does not use her CPAP machine because she does not like it and makes it uncomfortable. * Patient counseled that this is a risk factor for A-fib and she would need to see pulmonology to be fitted with CPAP machine. * DVT prophylaxis: on eliquis Disposition; transfer to regular floor Charges/Coding Visit Charges Inpatient E&M: 12305 Subs Hosp L2
--- NOTE | 2022-07-13 13:49 | PN.CARD_ITS ---
Documented by User: EZRA Sabillon 07/13/22 13:57 Subjective Subjective Overall patient is feeling better. She does not have any chest discomfort or worsening shortness of breath. She is not aware of any irregular heartbeats. Objective Data Vital Signs: Vital Signs Temp Pulse Resp BP Pulse Ox O2 Del Method O2 Flow Rate 98.9 F 73 15 128/72 H 95 Room Air 2 07/13/22 12:00 07/13/22 12:00 07/13/22 12:00 07/13/22 12:00 07/13/22 12:00 07/13/22 12:00 07/13/22 10:00 Oxygen Flow Rate (L/min) 2 Oxygen Delivery Method Room Air Weight: 235 lb 7.259 oz Body Mass Index (BMI) 35.8 Intake & Output: Intake and Output for Last 24 Hours 07/11/22 07/12/22 07/13/22 23:59 23:59 23:59 Intake Total 1371.58 / 1671.58 2557.42 / 2692.42 800.0 / 800.0 Output Total 600 / 1800 1450 / 1450 Balance 1371.58 / 1671.58 1957.42 / 892.42 -650.0 / -650.0 Lab / Micro Data Result Diagrams: 07/13/22 03:30 07/13/22 03:30 Labs: Laboratory Results - last 24 hr 07/12/22 04:01: TSH 3.00 07/13/22 03:30: WBC 9.7, RBC 3.39 L, Hgb 8.9 L, Hct 29.1 L, MCV 85.8, MCH 26.3 L , MCHC 30.6 L, RDW Std Deviation 45.2 H, RDW Coeff of Rex 14.5, Plt Count 235, MPV 10.8, Immature Gran % (Auto) 0.300, Neut % (Auto) 79.0 H, Lymph % (Auto) 10.0 L, [place] % (Auto) 6.7, Eos % (Auto) 3.7, Baso % (Auto) 0.3, Absolute Neuts (auto) 7.7, Absolute Lymphs (auto) 0.97, Nucleated RBC % 0 07/13/22 03:30: Sodium 141, Potassium 3.4 L, Chloride 106, Carbon Dioxide 28.0, Anion Gap 7, BUN 10, Creatinine 0.51 L, Estim Creat Clear Calc 46.02, Est GFR (MDRD) Af Amer 150, Est GFR (MDRD) Non-Af 124, BUN/Creatinine Ratio 19.7, Glucose 137 H, Calcium 8.4 L Rhythm Strip Rhythm Strip: Atrial flutter Rate: 150 Cardiology Labs/Tests 07/13/22 03:30: WBC 9.7, RBC 3.39 L, Hgb 8.9 L, Hct 29.1 L, MCV 85.8, MCH 26.3 L , MCHC 30.6 L, Plt Count 235, MPV 10.8, Immature Gran % (Auto) 0.300, Neut % (Auto) 79.0 H, Lymph % (Auto) 10.0 L, [place] % (Auto) 6.7, Eos % (Auto) 3.7, Baso % (Auto) 0.3, Absolute Neuts (auto) 7.7, Nucleated RBC % 0 07/13/22 03:30: Sodium 141, Potassium 3.4 L, Chloride 106, Carbon Dioxide 28.0, Anion Gap 7, BUN 10, Creatinine 0.51 L, Est GFR (MDRD) Af Amer 150, Est GFR (MDRD) Non-Af 124, BUN/Creatinine Ratio 19.7, Glucose 137 H, Calcium 8.4 L Rhythm: Radiography Diagnostic Testing: Radiology Impression Chest CTA 07/12/22 12:04 IMPRESSION: Study positive for pulmonary emboli in subsegmental branches to the right lower lobe. Right upper and middle lobe infiltrates with areas of consolidation. Findings consistent with pneumonia. Associated right hilar adenopathy. Recommend follow-up to resolution. Electronically Signed: Nikos Hernandez MD at 15:47 EDT , ADDENDUM: 07/12/22 4689 IMPRESSION: Study positive for pulmonary emboli in subsegmental branches to the right lower lobe. Right upper and middle lobe infiltrates with areas of consolidation. Findings consistent with pneumonia. Associated right hilar adenopathy. Recommend follow-up to resolution. N.B. : The above Results were Read Back by Nikos Hernandez MD to Silvana Morales MD, and understanding confirmed on 07/12/2022 16:16:29 (ET). Electronically Signed: Nikos Hernandez MD at 15:47 EDT , Physical Exam Const alert, oriented x3 and no apparent distress HEENT normocephalic, head/scalp atraumatic, moist oral mucous membranes and oropharynx normal Eyes PERRL and EOMs intact bilaterally Neck no lymphadenopathy and supple Lymph Lymphatic: no lymphadenopathy noted and no lymphedema noted Resp normal respiratory effort, normal air movement and clear to auscultation bilaterally Resp Narrative: diminished breath sounds bibasally, no wheezes or crackles. On 2L of oxygen Cardio regular rhythm, S1 normal heart sound, S2 normal heart sound and no murmurs GI normal to inspection, nondistended, normoactive bowel sounds, soft to palpation and non-tender Extremity normal capillary refill, no clubbing, cyanosis or edema and no calf tenderness Skin General Skin Exam: no breakdown Neuro CN's II-XII intact bilaterally, no focal motor deficits, no sensory deficits noted and deep tendon reflexes 2+ bilaterally Coordination / Balance: [id number] test normal Psych thought process normal Assessment & Plan Assessment/Plan (1) Atrial flutter: PLAN: Heart rate is controlled on metoprolol. Stop her diltiazem and switch over to p.o. diltiazem 20 she was asked with her history that she needs to be on aspirin. She does have a [id number] of 6 the plan. (2) Pneumonia: PLAN: As per internal medicine. On antibiotics. (3) Hypertension: PLAN: Presently normotensive. Continue medications. (4) Anemia: QUALIFIERS: Anemia type: unspecified type Qualified Code(s): D64.9 - Anemia, unspecified PLAN: recommend that this continued to be monitored on an OP basis. Charges/Coding Visit Charges Inpatient E&M: 70118 Subs Hosp L2 Documented by User: Dr. Gabrielle Johnson MD 07/13/22 14:46 Lab / Micro Data Result Diagrams: 07/13/22 03:30 07/13/22 03:30 Assessment & Plan Assessment/Plan (1) Atrial flutter: (2) Pneumonia: (3) Hypertension: (4) Anemia: QUALIFIERS: Anemia type: unspecified type Qualified Code(s): D64.9 - Anemia, unspecified PLAN: Plan I independently reviewed all the record of this patient including the EKG, cardiac monitors, current medication Patient with multiple medical comorbidities, anemia with rectal bleed, hyperlipidemia, Hypertension, pneumonia and had atrial fibrillation I formulated cardiac care plan as per midlevel documentation We will continue on rate control and patient is a high risk for stroke based on [id number] score will continue on anticoagulation. To schedule for cardiology follow-up as an outpatient once discharge for continuation of cardiac care plan.
--- NOTE | 2022-07-13 13:49 | CHAPLAIN ---
Type of Pastoral Visit ___ Initial Visit _x__ Follow-up Visit ___ On-call Visit ___ General Patient Visit ___ Spiritual Assessment ___ Family Conference ___ Bereavement ___ Rapid Response ___ Code Blue ___ Other (describe below) Pastoral Care Referral From _x__ Patient ___ Family ___ Nurse ___ Physician ___ Lead Front Desk Agent ___ Curing Oven Attendant ___ Other (describe below) Sacrament/Intervention _x__ Active listening ___ Anointing ___ Holiness ___ Bereavement ___ Communion ___ Aye exploration ___ ___ Life review ___ Prayer ___ Reconciliation ___ Sacrament of Sick _x__ Supportive presence ___ Wedding ___ Other (describe below) Pastoral Comments patient reviews discoveries by medical team and interventions; pt is hoping to be moved back to [facility] today; pt daughter is also with her today and they are offered support; pt welcomes presence, no other needs evident at this time
[2022-07-13] MEDS: dilTIAZem CD 120 MG Capsule PO (14:10)
[2022-07-13] MEDS: Allopurinol 300 MG Tablet PO (16:34)
[2022-07-13] MEDS: Atorvastatin Calcium 40 MG Tablet PO ×2 (23:29)
[2022-07-14] VITALS (13 sets, daily range): BP systolic 104–166; BP diastolic 70–106; PULSE 65–146; RESP 16–18; TEMP 36.6–37.1; O2SAT 92–97; BMI 34.2
--- NOTE | 2022-07-14 01:46 | NURSING ---
Emergency charting in effect marni. 07/13-07/14
[2022-07-14] MEDS: Thyroid 15 MG Tablet 45 MG PO (06:21)
[2022-07-14 06:44] LABS: Absolute Lymphocyte Count 0.97 X10^3/uL (0.83-4.51); Absolute Neutrophil Count 5.6 X10^3/uL (2.0-7.7); Basophil# 0.03 X10^3/uL; Basophil% 0.4 % (0-1); Eosinophil# 0.29 X10^3/uL; Eosinophils% 3.9 % (0-5); Hematocrit 29.9 % (37-47); Hemoglobin 9.1 g/dL (12.0-15.0); Lymphocyte # 0.97 X10^3/ul (0.83-4.51); Mean Corp Hgb Conc 30.4 g/dL (32-36); Mean Corpuscular Hgb 26.4 pg (27.0-32.0); Mean Corpuscular Volume 86.7 fL (81-99); Mean Platelet Vol. 10.7 fl (6.2-12.0); Monocyte# 0.56 X10^3/uL; Monocyte% 7.5 % (0-10); NRBC Flagged by Analyzer 0 % (0-5); Neutrophil # 5.59 X10^3/uL (2.7-7.7); Neutrophil % 74.9 % (47-70); Platelet Count 271 K/mm3 (150-450); RBC Distribution Width CV 14.5 % (11.6-14.6); RBC Distribution Width SD 46.1 fl (35.1-43.9); Red Blood Count 3.45 M/mm3 (4.2-5.4); White Blood Count 7.5 K/mm3 (4.4-11.0)
[2022-07-14 07:23] LABS: Anion Gap 4 (5-15); BUN 10 mg/dL (7-18); BUN/Creat Ratio 17.8 RATIO (10-20); Calcium,Total 8.5 mg/dL (8.5-10.1); Chloride 104 mmol/L (98-107); Creatinine, Serum 0.56 mg/dL (0.55-1.02); EST Glomerular Filtration Rate 111 mL/min (>60); Est Glom Filt Rate - Afr Amer 134 mL/min (>60); Estimated Creatinine Clearance 46.02 ml/min; Glucose 120 mg/dL (74-106); Potassium 3.4 mmol/L (3.5-5.1); Sodium Level 138 mmol/L (136-145)
[2022-07-14] MEDS: Budesonide Respules 0.5 MG/2 ML AMPUL.NEB. INHALATION ×2 (07:25→20:02)
[2022-07-14] MEDS: Furosemide 40 MG Tablet PO (07:56)
[2022-07-14] MEDS: Metoprolol Tartrate 25 MG Tablet PO (07:56)
[2022-07-14] MEDS: dilTIAZem CD 120 MG Capsule PO (07:59)
[2022-07-14] MEDS: Multivitamins,Ther W-Minerals Tablet 1 TABLET PO (11:50)
[2022-07-14] MEDS: Ascorbic Acid 500 MG Tablet 1000 MG PO (11:50)
[2022-07-14] MEDS: Vitamin B Comp W-C Capsule 1 CAP PO (11:51)
[2022-07-14] MEDS: APIXABAN 5 MG TABLET 10 MG PO ×2 (11:52→20:51)
[2022-07-14] MEDS: 0.9% Saline Lock 10 ML Syringe IV (11:52)
--- NOTE | 2022-07-14 13:21 | PN_ITS ---
Subjective Subjective Patient seen and examined. She has no complaints. She had an uneventful night. Her heart rate is still not fully well controlled and continues to fluctuate. Review of systems otherwise negative. Objective Data Objective Data Vital Signs: Vital Signs Temp Pulse Resp BP Pulse Ox O2 Del Method O2 Flow Rate 98.5 F 146 H 18 104/70 93 Room Air 2 07/14/22 10:00 07/14/22 10:00 07/14/22 10:00 07/14/22 10:00 07/14/22 10:00 07/14/22 10:00 07/14/22 07:45 Oxygen Flow Rate (L/min) 2 Oxygen Delivery Method Room Air Weight: 225 lb 4.999 oz Body Mass Index (BMI) 34.2 Intake & Output: Intake and Output for Last 24 Hours 07/12/22 07/13/22 07/14/22 23:59 23:59 23:59 Intake Total 2557.42 / 2692.42 848.0 / 1048.0 440 / 440 Output Total 600 / 1800 1450 / 1750 300 / 300 Balance 1957.42 / 892.42 -602.0 / -702.0 140 / 140 Lab / Micro Data Result Diagrams: 07/14/22 06:04 07/14/22 06:04 Labs: Laboratory Results - last 24 hr 07/14/22 06:04: WBC 7.5, RBC 3.45 L, Hgb 9.1 L, Hct 29.9 L, MCV 86.7, MCH 26.4 L , MCHC 30.4 L, RDW Std Deviation 46.1 H, RDW Coeff of Rex 14.5, Plt Count 271, MPV 10.7, Immature Gran % (Auto) 0.300, Neut % (Auto) 74.9 H, Lymph % (Auto) 13.0 L, [place] % (Auto) 7.5, Eos % (Auto) 3.9, Baso % (Auto) 0.4, Absolute Neuts (auto) 5.6, Absolute Lymphs (auto) 0.97, Nucleated RBC % 0 07/14/22 06:04: Sodium 138, Potassium 3.4 L, Chloride 104, Carbon Dioxide 30.0, Anion Gap 4 L, BUN 10, Creatinine 0.56, Estim Creat Clear Calc 46.02, Est GFR (MDRD) Af Amer 134, Est GFR (MDRD) Non-Af 111, BUN/Creatinine Ratio 17.8, Glucose 120 H, Calcium 8.5 Micro: Microbiology 07/10/22 15:30 Blood Culture (Wb) - Anticubital Left Blood Culture - Pre liminary No growth in 48 hours. 07/10/22 15:30 Blood Culture (Wb) - Anticubital Right Blood Culture - Preliminary No growth in 48 hours. 07/10/22 12:30 Nasal Secretion SARS-CoV-2 & FLU Antigen (Rapid) - Final Rhythm Strip Rhythm Strip: Atrial flutter Rate: 150 Physical Exam Const alert, oriented x3 and no apparent distress HEENT normocephalic, head/scalp atraumatic, moist oral mucous membranes and oropharynx normal Mouth: dry mucous membranes Eyes PERRL and EOMs intact bilaterally Neck no lymphadenopathy and supple Lymph Lymphatic: no lymphadenopathy noted and no lymphedema noted Resp normal respiratory effort, normal air movement and clear to auscultation bilaterally Resp Narrative: diminished breath sounds bibasally, no wheezes or crackles. On room air Cardio S1 normal heart sound, S2 normal heart sound and no murmurs Cardio Narrative: rate is still not very well controlled. GI normal to inspection, nondistended, normoactive bowel sounds, soft to palpation and non-tender Extremity normal capillary refill, no clubbing, cyanosis or edema and no calf tenderness Skin General Skin Exam: no breakdown Neuro CN's II-XII intact bilaterally, no focal motor deficits, no sensory deficits noted and deep tendon reflexes 2+ bilaterally Coordination / Balance: [id number] test normal Psych thought process normal Assessment & Plan Assessment/Plan (1) Atrial flutter: (2) CHF (congestive heart failure): (3) Pneumonia: PLAN: Plan #Hypoxia due to community acquired pneumonia * On IV Levaquin every 48 hours. * Urine for strep and Legionella antigens negative. * On breathing changes and bronchodilators. Titrate oxygen to maintain saturation above 90%. * #New onset atrial flutter with RVR * Cardiology on board. off cardizem drip * 2D echo showed EF of 55% with stage II diastolic dysfunction and no regional wall motion abnormalities noted. Left atrium and right atrium moderately enlarged and pulmonary artery systolic pressure is 42 mmHg. * now on oral cardizem and metoprolol. * heart rate is still not fully well controlled. * cardiology on board; defer to cardiology about adjusting meds. #PE * CTA of the chest done did not show right-sided subsegmental PE. Eliquis dose increased to therapeutic dose of 10 mg twice daily. * 2D echo as above. * #Iatrogenic hypotension * resolved. * BP now normalised * #Hypokalemia: Potassium is still 3.4 today. Will replace and trend. #Acute on chronic heart failure preserved ejection fraction * BNP was elevated and echo showed stage III diastolic dysfunction with EF of 65% * on PO lasix * #Hypothyroidism: On [place] Thyroid #Hyperlipidemia: On statin #Hypertension: On metoprolol and amlodipine #History of sleep apnea: * Says she has EDDIE but does not use her CPAP machine because she does not like it and makes it uncomfortable. * Patient counseled that this is a risk factor for A-fib and she would need to see pulmonology to be fitted with CPAP machine. * DVT prophylaxis: on eliquis Disposition; dc home once heart rate is much better controlled Charges/Coding Visit Charges Inpatient E&M: 83977 Subs Hosp L2
[2022-07-14] MEDS: levoFLOXacin IV 750 MG/150 ML BAG 100 MG IV (13:39)
[2022-07-14] MEDS: Digoxin 125 MCG Tablet PO (15:19)
--- NOTE | 2022-07-14 15:45 | PN.CARD_ITS ---
Subjective Subjective Evaluated today at bedside along with the nursing staff Sitting out in a chair no symptoms reported Review of the telemetry noted distal had atrial flutter/variable ventricular rate Objective Data Vital Signs: Vital Signs Temp Pulse Resp BP Pulse Ox O2 Del Method O2 Flow Rate 98.2 F 142 H 18 124/92 H 93 Room Air 2 07/14/22 14:06 07/14/22 15:19 07/14/22 14:06 07/14/22 15:19 07/14/22 14:06 07/14/22 14:06 07/14/22 07:45 Oxygen Flow Rate (L/min) 2 Oxygen Delivery Method Room Air Weight: 225 lb 4.999 oz Body Mass Index (BMI) 34.2 Intake & Output: Intake and Output for Last 24 Hours 07/12/22 07/13/22 07/14/22 23:59 23:59 23:59 Intake Total 2557.42 / 2692.42 848.0 / 1048.0 1040 / 1040 Output Total 600 / 1800 1450 / 1750 300 / 300 Balance 1957.42 / 892.42 -602.0 / -702.0 740 / 740 Lab / Micro Data Result Diagrams: 07/14/22 06:04 07/14/22 06:04 Labs: Laboratory Results - last 24 hr 07/14/22 06:04: WBC 7.5, RBC 3.45 L, Hgb 9.1 L, Hct 29.9 L, MCV 86.7, MCH 26.4 L , MCHC 30.4 L, RDW Std Deviation 46.1 H, RDW Coeff of Rex 14.5, Plt Count 271, MPV 10.7, Immature Gran % (Auto) 0.300, Neut % (Auto) 74.9 H, Lymph % (Auto) 13.0 L, [place] % (Auto) 7.5, Eos % (Auto) 3.9, Baso % (Auto) 0.4, Absolute Neuts (auto) 5.6, Absolute Lymphs (auto) 0.97, Nucleated RBC % 0 07/14/22 06:04: Sodium 138, Potassium 3.4 L, Chloride 104, Carbon Dioxide 30.0, Anion Gap 4 L, BUN 10, Creatinine 0.56, Estim Creat Clear Calc 46.02, Est GFR (MDRD) Af Amer 134, Est GFR (MDRD) Non-Af 111, BUN/Creatinine Ratio 17.8, Glucose 120 H, Calcium 8.5 Rhythm Strip Rhythm Strip: Atrial flutter Rate: 150 Cardiology Labs/Tests 07/14/22 06:04: WBC 7.5, RBC 3.45 L, Hgb 9.1 L, Hct 29.9 L, MCV 86.7, MCH 26.4 L , MCHC 30.4 L, Plt Count 271, MPV 10.7, Immature Gran % (Auto) 0.300, Neut % (Auto) 74.9 H, Lymph % (Auto) 13.0 L, [place] % (Auto) 7.5, Eos % (Auto) 3.9, Baso % (Auto) 0.4, Absolute Neuts (auto) 5.6, Nucleated RBC % 0 07/14/22 06:04: Sodium 138, Potassium 3.4 L, Chloride 104, Carbon Dioxide 30.0, Anion Gap 4 L, BUN 10, Creatinine 0.56, Est GFR (MDRD) Af Amer 134, Est GFR (MDRD) Non-Af 111, BUN/Creatinine Ratio 17.8, Glucose 120 H, Calcium 8.5 Rhythm: EKG: ECHO: Stress Test: Cardiac Cath: PCI: CT Surgery: Holter monitor: EPS: PPM: CXR: Chest CT Scan: Physical Exam Cardio Cardio Narrative: Review of residential monitor showed underlying atrial flutter Cardiac exam S1-S2 is regular Chest exam mildly diminished air entry bilateral Examination lower extremity no clubbing no cyanosis, no lower extremity edema. Assessment & Plan Assessment/Plan (1) Pneumonia: (2) Anemia: QUALIFIERS: Anemia type: unspecified type Qualified Code(s): D64.9 - Anemia, unspecified (3) Pulmonary emboli: (4) Atrial flutter: PLAN: Plan 81 year-old patient with multiple medical comorbidities From cardiac standpoint patient had atrial flutter still variable ventricular rate And has been on treatment With beta-anneliese and calcium channel anneliese Today I recommended adding low-dose digoxin for better control of atrial flutter rate Echocardiographic evaluation showed LV function is preserved with stage II diastolic dysfunction. Also noted patient has hypoxia due to community-acquired pneumonia currently on antibiotic treatment. The CTA of the chest did revealed evidence of right-sided subsegmental PE Cardiac care plan recommendation; 1. We will continue rate control calcium channel anneliese, beta-anneliese as tolerated by the blood pressure In addition to low-dose digoxin Noted renal function is preserved Patient to follow-up in the cardiology clinic and to discuss further plan for management of atrial flutter She will need event monitor which can be set up as an outpatient versus loop recorder In addition to ischemic work-up with Lexiscan sestamibi Consideration will be for DCCV once she had enough duration for anticoagulation more than 6 weeks.
[2022-07-14] MEDS: Potassium Chloride Oral Tablet 20 MEQ 40 MEQ PO (16:16)
[2022-07-14] MEDS: Allopurinol 300 MG Tablet PO (16:17)
[2022-07-14] MEDS: Metoprolol Tartrate 50 MG Tablet PO (20:51)
[2022-07-15] VITALS (26 sets, daily range): BP systolic 98–140; BP diastolic 56–94; PULSE 64–143; RESP 16–25; TEMP 36.7–37.1; O2SAT 91–98; BMI 34.7
[2022-07-15 05:26] LABS: Absolute Lymphocyte Count 1.14 X10^3/uL (0.83-4.51); Absolute Neutrophil Count 5.9 X10^3/uL (2.0-7.7); Basophil# 0.05 X10^3/uL; Basophil% 0.6 % (0-1); Eosinophil# 0.21 X10^3/uL; Eosinophils% 2.6 % (0-5); Hematocrit 29.7 % (37-47); Hemoglobin 9.1 g/dL (12.0-15.0); Lymphocyte # 1.14 X10^3/ul (0.83-4.51); Lymphocyte % 14.3 % (19-41); Mean Corp Hgb Conc 30.6 g/dL (32-36); Mean Corpuscular Hgb 26.1 pg (27.0-32.0); Mean Corpuscular Volume 85.1 fL (81-99); Mean Platelet Vol. 10.8 fl (6.2-12.0); Monocyte# 0.67 X10^3/uL; Monocyte% 8.4 % (0-10); NRBC Flagged by Analyzer 0 % (0-5); Neutrophil % 73.7 % (47-70); Platelet Count 275 K/mm3 (150-450); RBC Distribution Width CV 14.4 % (11.6-14.6); RBC Distribution Width SD 44.5 fl (35.1-43.9); Red Blood Count 3.49 M/mm3 (4.2-5.4)
[2022-07-15 06:08] LABS: Anion Gap 6 (5-15); BUN 11 mg/dL (7-18); BUN/Creat Ratio 19.2 RATIO (10-20); Calcium,Total 8.6 mg/dL (8.5-10.1); Chloride 105 mmol/L (98-107); Creatinine, Serum 0.57 mg/dL (0.55-1.02); EST Glomerular Filtration Rate 108 mL/min (>60); Est Glom Filt Rate - Afr Amer 131 mL/min (>60); Estimated Creatinine Clearance 46.02 ml/min; Glucose 117 mg/dL (74-106); Potassium 3.4 mmol/L (3.5-5.1); Sodium Level 139 mmol/L (136-145)
[2022-07-15] MEDS: Thyroid 15 MG Tablet 45 MG PO (06:30)
[2022-07-15] MEDS: Budesonide Respules 0.5 MG/2 ML AMPUL.NEB. INHALATION ×2 (07:12→19:50)
--- NOTE | 2022-07-15 08:19 | PCM.PN.HOSP ---
Reason for Visit Reason for Visit: Diagnoses Anemia, unspecified (07/10/22) Essential (primary) hypertension (07/10/22) Other pulmonary embolism without acute cor pulmonale (07/10/22) Unspecified atrial flutter (07/10/22) Heart failure, unspecified (07/10/22) Pneumonia, unspecified organism (07/10/22) Subjective Subjective Doing fairly well, was placed on amiodarone drip and heart rate at time of evaluation was 97 with a blood pressure of 98/79, denies any chest pain or shortness of breath. Objective Data Objective Data Vital Signs: Vital Signs Temp Pulse Resp BP Pulse Ox O2 Del Method O2 Flow Rate 98.0 F 139 H 18 135/92 H 95 Room Air 2 07/15/22 04:15 07/15/22 04:15 07/15/22 04:15 07/15/22 04:15 07/15/22 04:15 07/15/22 04:15 07/14/22 07:45 Oxygen Flow Rate (L/min) 2 Oxygen Delivery Method Room Air Weight: 103.8 kg Body Mass Index (BMI) 34.7 Intake & Output: Intake and Output for Last 24 Hours 07/13/22 07/14/22 07/15/22 23:59 23:59 23:59 Intake Total 848.0 / 1048.0 1440 / 1440 Output Total 1450 / 1750 300 / 300 Balance -602.0 / -702.0 1140 / 1140 Lab / Micro Data Result Diagrams: 07/15/22 04:30 07/15/22 04:30 Labs: Laboratory Results - last 24 hr 07/15/22 04:30: WBC 8.0, RBC 3.49 L, Hgb 9.1 L, Hct 29.7 L, MCV 85.1, MCH 26.1 L, MCHC 30.6 L, RDW Std Deviation 44.5 H, RDW Coeff of Rex 14.4, Plt Count 275, MPV 10.8, Immature Gran % (Auto) 0.400, Neut % (Auto) 73.7 H, Lymph % (Auto) 14.3 L, [place] % (Auto) 8.4, Eos % (Auto) 2.6, Baso % (Auto) 0.6, Absolute Neuts (auto) 5.9, Absolute Lymphs (auto) 1.14, Nucleated RBC % 0 07/15/22 04:30: Sodium 139, Potassium 3.4 L, Chloride 105, Carbon Dioxide 28.0, Anion Gap 6, BUN 11, Creatinine 0.57, Estim Creat Clear Calc 46.02, Est GFR (MDRD) Af Amer 131, Est GFR (MDRD) Non-Af 108, BUN/Creatinine Ratio 19.2, Glucose 117 H, Calcium 8.6 Micro: Microbiology 07/10/22 15:30 Blood Culture (Wb) - Anticubital Left Blood Culture - Preliminary No growth in 48 hours. 07/10/22 15:30 Blood Culture (Wb) - Anticubital Right Blood Culture - Preliminary No growth in 48 hours. 07/10/22 12:30 Nasal Secretion SARS-CoV-2 & FLU Antigen (Rapid) - Final Rhythm Strip Rhythm Strip: Atrial flutter Rate: 150 Physical Exam Narrative General: Alert, oriented, no apparent distress HEENT: Atraumatic, normocephalic Eyes: Anicteric, normal conjunctiva, extraocular movements grossly intact Neck: Supple Respiratory: Clear to auscultation bilaterally, normal respiratory effort Cardiovascular: Irregularly irregular, heart rate 90s to low 100s GI: Soft, nontender, nondistended Extremities: No edema Musculoskeletal: Moving all extremities Neuro: No overt focal neurological deficits Skin: No rashes appreciated Psych: Cooperative Assessment & Plan Assessment/Plan (1) Atrial flutter: PLAN: Plan #New onset atrial flutter with RVR -Cardiology following/adjusting medications -Has been difficult to control, is on Cardizem 120 mg daily, Lopressor 50 mg twice daily -Had been given digoxin without improvement and was started on amiodarone drip which is significantly improved heart rate to high 90s low 100s -Continue Eliquis -2D echo showed EF of 55% with stage II diastolic dysfunction and no regional wall motion abnormalities noted.? Left atrium and right atrium moderately enlarged and pulmonary artery systolic pressure is 42 mmHg. #Hypoxia due to community acquired pneumonia -On IV Levaquin every 48 hours.? -Urine for strep and Legionella antigens negative. -On bronchodilators.? Titrate oxygen to maintain saturation above 90%. #PE -CTA of the chest done did not show right-sided subsegmental PE.? -Started on Eliquis #Acute on chronic heart failure preserved ejection fraction -BNP was elevated and echo showed stage III diastolic dysfunction with EF of 65% -on PO lasix #Hypothyroidism: -On [place] Thyroid #Hyperlipidemia: -On statin - #History of sleep apnea: -Endorses history of sleep apnea not compliant with CPAP, counseled on importance of this and she is willing to have a sleep study as an outpatient DVT prophylaxis: on eliquis Charges/Coding Visit Charges Inpatient E&M: 26914 Subs Hosp L2
[2022-07-15] MEDS: 0.9% Saline Lock 10 ML Syringe IV ×2 (08:26→09:54)
[2022-07-15] MEDS: Amiodarone 360 MG in Dextrose 5% Viaflo Bag 192.8 ML 33.3 MG CONT INF (08:41)
--- NOTE | 2022-07-15 08:42 | PN.CARD_ITS ---
Subjective Subjective Patient seen and evaluated today at bedside and discussed cardiac medication with the nursing staff She has no symptoms to report comfortable no symptoms of chest pain. Objective Data Vital Signs: Vital Signs Temp Pulse Resp BP Pulse Ox O2 Del Method O2 Flow Rate 98.6 F 141 H 19 H 119/89 H 96 Room Air 2 07/15/22 08:31 07/15/22 08:31 07/15/22 08:31 07/15/22 08:31 07/15/22 08:31 07/15/22 08:31 07/14/22 07:45 Oxygen Flow Rate (L/min) 2 Oxygen Delivery Method Room Air Weight: 228 lb 13.437 oz Body Mass Index (BMI) 34.7 Intake & Output: Intake and Output for Last 24 Hours 07/13/22 07/14/22 07/15/22 23:59 23:59 23:59 Intake Total 848.0 / 1048.0 1440 / 1440 50 / 50 Output Total 1450 / 1750 300 / 300 Balance -602.0 / -702.0 1140 / 1140 50 / 50 Lab / Micro Data Result Diagrams: 07/15/22 04:30 07/15/22 04:30 Labs: Laboratory Results - last 24 hr 07/15/22 04:30: WBC 8.0, RBC 3.49 L, Hgb 9.1 L, Hct 29.7 L, MCV 85.1, MCH 26.1 L , MCHC 30.6 L, RDW Std Deviation 44.5 H, RDW Coeff of Rex 14.4, Plt Count 275, MPV 10.8, Immature Gran % (Auto) 0.400, Neut % (Auto) 73.7 H, Lymph % (Auto) 14.3 L, [place] % (Auto) 8.4, Eos % (Auto) 2.6, Baso % (Auto) 0.6, Absolute Neuts (auto) 5.9, Absolute Lymphs (auto) 1.14, Nucleated RBC % 0 07/15/22 04:30: Sodium 139, Potassium 3.4 L, Chloride 105, Carbon Dioxide 28.0, Anion Gap 6, BUN 11, Creatinine 0.57, Estim Creat Clear Calc 46.02, Est GFR (MDR D) Af Amer 131, Est GFR (MDRD) Non-Af 108, BUN/Creatinine Ratio 19.2, Glucose 117 H, Calcium 8.6 Rhythm Strip Rhythm Strip: Atrial flutter Rate: 150 Cardiology Labs/Tests 07/15/22 04:30: WBC 8.0, RBC 3.49 L, Hgb 9.1 L, Hct 29.7 L, MCV 85.1, MCH 26.1 L , MCHC 30.6 L, Plt Count 275, MPV 10.8, Immature Gran % (Auto) 0.400, Neut % (Auto) 73.7 H, Lymph % (Auto) 14.3 L, [place] % (Auto) 8.4, Eos % (Auto) 2.6, Baso % (Auto) 0.6, Absolute Neuts (auto) 5.9, Nucleated RBC % 0 07/15/22 04:30: Sodium 139, Potassium 3.4 L, Chloride 105, Carbon Dioxide 28.0, Anion Gap 6, BUN 11, Creatinine 0.57, Est GFR (MDRD) Af Amer 131, Est GFR (MDRD) Non-Af 108, BUN/Creatinine Ratio 19.2, Glucose 117 H, Calcium 8.6 Rhythm: EKG: ECHO: Stress Test: Cardiac Cath: PCI: CT Surgery: Holter monitor: EPS: PPM: CXR: Chest CT Scan: Physical Exam Cardio Cardio Narrative: Review of paper bag maker showed atrial flutter with variable ventricular rate Cardiac exam S1-S2 is regular Chest exam clear to auscultation bilateral Assessment & Plan Assessment/Plan (1) Pulmonary emboli: (2) Pneumonia: (3) Atrial flutter: PLAN: Plan 81-year-old patient. Has pneumonia, pulm emboli, atrial flutter with variable ventricular rate Still not well controlled today on Cardizem as well as metoprolol. She has an echocardiographic evaluation Which showed, normal LV systolic function Ejection fraction in the range of 55 and stage I diastolic dysfunction. Cardiac care plan; 1. I reviewed the current medication I noted patient currently on Eliquis for pulm emboli We will start the patient on amiodarone IV as it was difficult to control the rate on calcium channel anneliese and beta-anneliese We will continue oral medication with beta-anneliese and calcium channel anneliese. And we will continue to monitor and follow-up clinically. Today I discussed cardiac medication and plan with the nursing staff.
[2022-07-15] MEDS: APIXABAN 5 MG TABLET 10 MG PO ×2 (09:53→21:09)
[2022-07-15] MEDS: Ascorbic Acid 500 MG Tablet 1000 MG PO (09:53)
[2022-07-15] MEDS: Multivitamins,Ther W-Minerals Tablet 1 TABLET PO (09:53)
[2022-07-15] MEDS: Furosemide 40 MG Tablet PO (09:53)
[2022-07-15] MEDS: Vitamin B Comp W-C Capsule 1 CAP PO (09:53)
[2022-07-15] MEDS: Potassium Chloride Oral Tablet 20 MEQ 40 MEQ PO (09:54)
[2022-07-15] MEDS: Metoprolol Tartrate 50 MG Tablet PO ×2 (11:07→21:10)
[2022-07-15] MEDS: dilTIAZem CD 120 MG Capsule PO (13:44)
[2022-07-15] MEDS: Amiodarone 360 MG in Dextrose 5% Viaflo Bag 192.8 ML 16.7 MG CONT INF (15:46)
[2022-07-15] MEDS: Allopurinol 300 MG Tablet PO (15:52)
[2022-07-15] MEDS: Atorvastatin Calcium 40 MG Tablet PO (21:10)
[2022-07-16] VITALS (19 sets, daily range): BP systolic 114–152; BP diastolic 54–104; PULSE 65–140; RESP 10–32; TEMP 36.6–37.1; O2SAT 89–98; BMI 34.8
[2022-07-16] MEDS: Amiodarone 360 MG in Dextrose 5% Viaflo Bag 192.8 ML 16.7 MG CONT INF (03:24)
[2022-07-16] MEDS: Thyroid 15 MG Tablet 45 MG PO (05:44)
[2022-07-16 05:49] LABS: Absolute Lymphocyte Count 1.25 X10^3/uL (0.83-4.51); Absolute Neutrophil Count 5.3 X10^3/uL (2.0-7.7); Basophil# 0.05 X10^3/uL; Basophil% 0.7 % (0-1); Eosinophil# 0.34 X10^3/uL; Eosinophils% 4.5 % (0-5); Hemoglobin 8.8 g/dL (12.0-15.0); Lymphocyte # 1.25 X10^3/ul (0.83-4.51); Lymphocyte % 16.4 % (19-41); Mean Corp Hgb Conc 30.3 g/dL (32-36); Mean Corpuscular Volume 85.8 fL (81-99); Mean Platelet Vol. 10.4 fl (6.2-12.0); Monocyte# 0.68 X10^3/uL; Monocyte% 8.9 % (0-10); NRBC Flagged by Analyzer 0 % (0-5); Neutrophil # 5.27 X10^3/uL (2.7-7.7); Neutrophil % 69.2 % (47-70); Platelet Count 254 K/mm3 (150-450); RBC Distribution Width CV 14.5 % (11.6-14.6); RBC Distribution Width SD 45.1 fl (35.1-43.9); Red Blood Count 3.38 M/mm3 (4.2-5.4); White Blood Count 7.6 K/mm3 (4.4-11.0)
[2022-07-16 06:39] LABS: Anion Gap 5 (5-15); BUN 12 mg/dL (7-18); BUN/Creat Ratio 21.2 RATIO (10-20); Calcium,Total 8.5 mg/dL (8.5-10.1); Chloride 105 mmol/L (98-107); Creatinine, Serum 0.57 mg/dL (0.55-1.02); EST Glomerular Filtration Rate 109 mL/min (>60); Est Glom Filt Rate - Afr Amer 132 mL/min (>60); Estimated Creatinine Clearance 46.02 ml/min; Glucose 123 mg/dL (74-106); Potassium 3.5 mmol/L (3.5-5.1); Sodium Level 138 mmol/L (136-145)
[2022-07-16] MEDS: Budesonide Respules 0.5 MG/2 ML AMPUL.NEB. INHALATION ×2 (07:21→19:06)
--- NOTE | 2022-07-16 07:41 | PCM.PN.CARD ---
Subjective Subjective The patient was seen and evaluated. Appears to be doing well. Her heart rate is better at this time. Objective Data Vital Signs: Vital Signs Temp Pulse Resp BP Pulse Ox O2 Del Method O2 Flow Rate 98.0 F 84 10 L 144/82 H 94 Room Air 2 07/16/22 00:00 07/16/22 07:23 07/16/22 07:23 07/16/22 06:56 07/16/22 07:23 07/16/22 07:23 07/16/22 06:56 Oxygen Flow Rate (L/min) 2 Oxygen Delivery Method Room Air Weight: 229 lb 0.964 oz Body Mass Index (BMI) 34.8 Intake & Output: Intake and Output for Last 24 Hours 07/14/22 07/15/22 07/16/22 23:59 23:59 23:59 Intake Total 1440 / 1440 1634.16 / 1634.16 132.49 / 132.49 Output Total 300 / 300 Balance 1140 / 1140 1634.16 / 1634.16 132.49 / 132.49 Lab / Micro Data Result Diagrams: 07/16/22 05:30 07/16/22 05:30 Labs: Laboratory Results - last 24 hr 07/16/22 05:30: WBC 7.6, RBC 3.38 L, Hgb 8.8 L, Hct 29.0 L, MCV 85.8, MCH 26.0 L, MCHC 30.3 L, RDW Std Deviation 45.1 H, RDW Coeff of Rex 14.5, Plt Count 254, MPV 10.4, Immature Gran % (Auto) 0.300, Neut % (Auto) 69.2, Lymph % (Auto) 16.4 L, [place] % (Auto) 8.9, Eos % (Auto) 4.5, Baso % (Auto) 0.7, Absolute Neuts (auto) 5.3, Absolute Lymphs (auto) 1.25, Nucleated RBC % 0 07/16/22 05:30: Sodium 138, Potassium 3.5, Chloride 105, Carbon Dioxide 28.0, Anion Gap 5, BUN 12, Creatinine 0.57, Estim Creat Clear Calc 46.02, Est GFR (MDRD) Af Amer 132, Est GFR (MDRD) Non-Af 109, BUN/Creatinine Ratio 21.2 H, Glucose 123 H, Calcium 8.5 Rhythm Strip Rhythm Strip: Atrial flutter Rate: 150 Cardiology Labs/Tests 07/16/22 05:30: WBC 7.6, RBC 3.38 L, Hgb 8.8 L, Hct 29.0 L, MCV 85.8, MCH 26.0 L, MCHC 30.3 L, Plt Count 254, MPV 10.4, Immature Gran % (Auto) 0.300, Neut % (Auto) 69.2, Lymph % (Auto) 16.4 L, [place] % (Auto) 8.9, Eos % (Auto) 4.5, Baso % (Auto) 0.7, Absolute Neuts (auto) 5.3, Nucleated RBC % 0 07/16/22 05:30: Sodium 138, Potassium 3.5, Chloride 105, Carbon Dioxide 28.0, Anion Gap 5, BUN 12, Creatinine 0.57, Est GFR (MDRD) Af Amer 132, Est GFR (MDRD) Non-Af 109, BUN/Creatinine Ratio 21.2 H, Glucose 123 H, Calcium 8.5 Rhythm: EKG: ECHO: Stress Test: Cardiac Cath: PCI: CT Surgery: Holter monitor: EPS: PPM: CXR: Chest CT Scan: Physical Exam Const alert, oriented x3 and no apparent distress General Appearance: cooperative HEENT hearing grossly normal bilaterally Head and Scalp: atraumatic Eyes EOMs intact bilaterally Neck General: normal visual inspection Chest inspection of chest normal and palpation of chest normal Resp normal respiratory effort Auscultation: clear to auscultation bilaterally Cardio S1 normal heart sound and S2 normal heart sound Jugular Venous Distention: JVD Rhythm: abnormal rhythm irregularly irregular GI normal to inspection, nondistended, normoactive bowel sounds Extremity normal capillary refill and no pedal edema Peripheral Pulses: Yes pulses 2+ throughout and femoral pulses present Skin no rashes or lesions noted Neuro oriented x3 and CN's II-XII intact bilaterally Psych Appearance: grossly normal and appropriate Assessment & Plan Assessment/Plan (1) Atrial flutter: PLAN: Patient with a history of atrial fibrillation flutter. Ventricular response rate was controlled on intravenous amiodarone. Will recommend increasing the dose of the beta-anneliese to 100 mg twice daily Continue diltiazem for now and adjust as necessary Continue anticoagulation with Eliquis for now Echocardiogram had demonstrated preserved left ventricular systolic function and biatrial enlargement (2) Pulmonary emboli: PLAN: Evidence of recent pulmonary emboli Will need anticoagulation per protocol (3) Hypertension: PLAN: Patient with known hypertension. Appears to be stable at this time. Will increase the beta-anneliese. Thank you for allowing me to participate in the care of your patient. Please don't hesitate to call if any issues arise.
[2022-07-16] MEDS: Vitamin B Comp W-C Capsule 1 CAP PO (07:51)
[2022-07-16] MEDS: Multivitamins,Ther W-Minerals Tablet 1 TABLET PO (07:51)
[2022-07-16] MEDS: Ascorbic Acid 500 MG Tablet 1000 MG PO (07:51)
[2022-07-16] MEDS: APIXABAN 5 MG TABLET 10 MG PO ×2 (07:52→22:12)
[2022-07-16] MEDS: dilTIAZem CD 120 MG Capsule PO (07:52)
[2022-07-16] MEDS: Furosemide 40 MG Tablet PO (07:53)
[2022-07-16] MEDS: levoFLOXacin 750 MG Tablet PO (09:23)
[2022-07-16] MEDS: Metoprolol Tartrate 100 MG Tablet PO ×2 (09:23→22:12)
[2022-07-16] MEDS: Allopurinol 300 MG Tablet PO (16:20)
--- NOTE | 2022-07-16 19:35 | PN.HOSP_ITS ---
Reason for Visit Reason for Visit: Diagnoses Anemia, unspecified (07/10/22) Essential (primary) hypertension (07/10/22) Other pulmonary embolism without acute cor pulmonale (07/10/22) Unspecified atrial flutter (07/10/22) Heart failure, unspecified (07/10/22) Pneumonia, unspecified organism (07/10/22) Subjective Subjective Feeling well today, no chest pain or shortness of breath Objective Data Objective Data Vital Signs: Vital Signs Temp Pulse Resp BP Pulse Ox O2 Del Method O2 Flow Rate 98 F 65 14 133/82 H 98 Room Air 2 07/16/22 16:16 07/16/22 16:16 07/16/22 16:16 07/16/22 16:16 07/16/22 16:16 07/16/22 16:16 07/16/22 06:56 Oxygen Flow Rate (L/min) 2 Oxygen Delivery Method Room Air Weight: 103.9 kg Body Mass Index (BMI) 34.8 Intake & Output: Intake and Output for Last 24 Hours 07/14/22 07/15/22 07/16/22 23:59 23:59 23:59 Intake Total 1440 / 1440 1634.16 / 1634.16 595.33 / 595.33 Output Total 300 / 300 Balance 1140 / 1140 1634.16 / 1634.16 595.33 / 595.33 Lab / Micro Data Result Diagrams: 07/16/22 05:30 07/16/22 05:30 Labs: Laboratory Results - last 24 hr 07/16/22 05:30: WBC 7.6, RBC 3.38 L, Hgb 8.8 L, Hct 29.0 L, MCV 85.8, MCH 26.0 L , MCHC 30.3 L, RDW Std Deviation 45.1 H, RDW Coeff of Rex 14.5, Plt Count 254, MPV 10.4, Immature Gran % (Auto) 0.300, Neut % (Auto) 69.2, Lymph % (Auto) 16.4 L, [place] % (Auto) 8.9, Eos % (Auto) 4.5, Baso % (Auto) 0.7, Absolute Neuts (auto) 5.3, Absolute Lymphs (auto) 1.25, Nucleated RBC % 0 07/16/22 05:30: Sodium 138, Potassium 3.5, Chloride 105, Carbon Dioxide 28.0, Anion Gap 5, BUN 12, Creatinine 0.57, Estim Creat Clear Calc 46.02, Est GFR (MDRD) Af Amer 132, Est GFR (MDRD) Non-Af 109, BUN/Creatinine Ratio 21.2 H, Glucose 123 H, Calcium 8.5 Micro: Microbiology 07/10/22 15:30 Blood Culture (Wb) - Anticubital Right Blood Culture - Final No growth in 5 days. 07/10/22 15:30 Blood Culture (Wb) - Anticubital Left Blood Culture - Final No growth in 5 days. 07/10/22 12:30 Nasal Secretion SARS-CoV-2 & FLU Antigen (Rapid) - Final Rhythm Strip Rhythm Strip: Atrial flutter Rate: 150 Physical Exam Narrative General: Alert, oriented, no apparent distress HEENT: Atraumatic, normocephalic Eyes: Anicteric, normal conjunctiva, extraocular movements grossly intact Neck: Supple Respiratory: Clear to auscultation bilaterally, normal respiratory effort Cardiovascular: Irregularly irregular, heart rate 90s to low 100s GI: Soft, nontender, nondistended Extremities: No edema Musculoskeletal: Moving all extremities Neuro: No overt focal neurological deficits Skin: No rashes appreciated Psych: Cooperative Assessment & Plan Assessment/Plan (1) Atrial flutter: PLAN: Plan #New onset atrial flutter with RVR -Cardiology following/adjusting medications -Has been difficult to control, is on Cardizem 120 mg daily, Lopressor 50 mg twice daily -Had been given digoxin without improvement and was started on amiodarone drip which is significantly improved heart rate to high 90s low 100s -Continue Eliquis -2D echo showed EF of 55% with stage II diastolic dysfunction and no regional wall motion abnormalities noted.? Left atrium and right atrium moderately enlarged and pulmonary artery systolic pressure is 42 mmHg. -07/16: Off amiodarone drip and metoprolol increased to 100 twice daily with Cardizem 120 mg. Cardiology following. Did have another episode where she went into flutter and was given a bolus by cardiology which did improve rate again #Hypoxia due to community acquired pneumonia -On IV Levaquin -Urine for strep and Legionella antigens negative. -On bronchodilators.? Titrate oxygen to maintain saturation above 90%. 07/16: Doing very well, has completed 7 days of antibiotics, will DC Levaquin #PE -CTA of the chest done did not show right-sided subsegmental PE.? -Started on Eliquis #Acute on chronic heart failure preserved ejection fraction -BNP was elevated and echo showed diastolic dysfunction with EF of 65% -on PO lasix #Hypothyroidism: -On [place] Thyroid #Hyperlipidemia: -On statin - #History of sleep apnea: -Endorses history of sleep apnea not compliant with CPAP, counseled on importance of this and she is willing to have a sleep study as an outpatient DVT prophylaxis: on eliquis Charges/Coding Visit Charges Inpatient E&M: 33893 Subs Hosp L2
[2022-07-16] MEDS: Atorvastatin Calcium 40 MG Tablet PO (22:12)
[2022-07-17 04:38] VITALS: BP 138/80; PULSE 65; RESP 18; TEMP 36.7; O2SAT 97
--- NOTE | 2022-07-17 05:59 | PN.CARD_ITS ---
Subjective Subjective Patient seen and evaluated. Appears to be doing much better. Heart rate is much better controlled. Objective Data Vital Signs: Vital Signs Temp Pulse Resp BP Pulse Ox O2 Del Method O2 Flow Rate 98.0 F 65 18 138/80 H 97 Room Air 2 07/17/22 04:38 07/17/22 04:38 07/17/22 04:38 07/17/22 04:38 07/17/22 04:38 07/17/22 04:39 07/16/22 06:56 Oxygen Flow Rate (L/min) 2 Oxygen Delivery Method Room Air Weight: 229 lb 0.964 oz Body Mass Index (BMI) 34.8 Intake & Output: Intake and Output for Last 24 Hours 07/15/22 07/16/22 07/17/22 23:59 23:59 23:59 Intake Total 1634.16 / 1634.16 595.33 / 595.33 Balance 1634.16 / 1634.16 595.33 / 595.33 Lab / Micro Data Result Diagrams: 07/16/22 05:30 07/16/22 05:30 Labs: Laboratory Results - last 24 hr 07/16/22 05:30: Sodium 138, Potassium 3.5, Chloride 105, Carbon Dioxide 28.0, Anion Gap 5, BUN 12, Creatinine 0.57, Estim Creat Clear Calc 46.02, Est GFR (MDRD) Af Amer 132, Est GFR (MDRD) Non-Af 109, BUN/Creatinine Ratio 21.2 H, Glucose 123 H, Calcium 8.5 Micro: Microbiology 07/10/22 15:30 Blood Culture (Wb) - Anticubital Right Blood Culture - Final No growth in 5 days. 07/10/22 15:30 Blood Culture (Wb) - Anticubital Left Blood Culture - Final No growth in 5 days. Rhythm Strip Rhythm Strip: Atrial flutter Rate: 150 Cardiology Labs/Tests 07/16/22 05:30: Sodium 138, Potassium 3.5, Chloride 105, Carbon Dioxide 28.0, Anion Gap 5, BUN 12, Creatinine 0.57, Est GFR (MDRD) Af Amer 132, Est GFR (MDRD) Non-Af 109, BUN/Creatinine Ratio 21.2 H, Glucose 123 H, Calcium 8.5 Rhythm: EKG: ECHO: Stress Test: Cardiac Cath: PCI: CT Surgery: Holter monitor: EPS: PPM: CXR: Chest CT Scan: Physical Exam Const alert, oriented x3 and no apparent distress General Appearance: cooperative HEENT hearing grossly normal bilaterally Head and Scalp: atraumatic Eyes EOMs intact bilaterally Neck General: normal visual inspection Chest inspection of chest normal and palpation of chest normal Resp normal respiratory effort Auscultation: clear to auscultation bilaterally Cardio S1 normal heart sound and S2 normal heart sound Jugular Venous Distention: JVD Rhythm: abnormal rhythm irregularly irregular GI normal to inspection, nondistended, normoactive bowel sounds Extremity normal capillary refill and no pedal edema Peripheral Pulses: Yes pulses 2+ throughout and femoral pulses present Skin no rashes or lesions noted Neuro oriented x3 and CN's II-XII intact bilaterally Psych Appearance: grossly normal and appropriate Assessment & Plan Assessment/Plan (1) Atrial flutter: PLAN: Patient with a history of atrial fibrillation flutter. Ventricular response rate was controlled on intravenous amiodarone. * Will recommend increasing the dose of the beta-anneliese to 100 mg twice daily * Continue diltiazem for now and adjust as necessary * Continue anticoagulation with Eliquis for now * Echocardiogram had demonstrated preserved left ventricular systolic function and biatrial enlargement * Patient appears quite stable at this time for outpatient management. (2) Pulmonary emboli: PLAN: Evidence of recent pulmonary emboli Will need anticoagulation per protocol (3) Hypertension: PLAN: Patient with known hypertension. Appears to be stable at this time. Thank you for allowing me to participate in the care of your patient. Please don't hesitate to call if any issues arise.
[2022-07-17 06:00] VITALS: BMI 34.9
[2022-07-17 06:06] LABS: Absolute Lymphocyte Count 1.18 X10^3/uL (0.83-4.51); Basophil# 0.05 X10^3/uL; Basophil% 0.5 % (0-1); Eosinophil# 0.32 X10^3/uL; Eosinophils% 3.4 % (0-5); Hematocrit 28.1 % (37-47); Hemoglobin 8.6 g/dL (12.0-15.0); Lymphocyte # 1.18 X10^3/ul (0.83-4.51); Lymphocyte % 12.5 % (19-41); Mean Corp Hgb Conc 30.6 g/dL (32-36); Mean Corpuscular Hgb 25.9 pg (27.0-32.0); Mean Corpuscular Volume 84.6 fL (81-99); Mean Platelet Vol. 10.6 fl (6.2-12.0); Monocyte# 0.85 X10^3/uL; NRBC Flagged by Analyzer 0 % (0-5); Neutrophil # 6.98 X10^3/uL (2.7-7.7); Neutrophil % 74.1 % (47-70); Platelet Count 269 K/mm3 (150-450); RBC Distribution Width CV 14.5 % (11.6-14.6); RBC Distribution Width SD 44.5 fl (35.1-43.9); Red Blood Count 3.32 M/mm3 (4.2-5.4); White Blood Count 9.4 K/mm3 (4.4-11.0)
[2022-07-17] MEDS: Thyroid 15 MG Tablet 45 MG PO (06:42)
[2022-07-17 06:53] LABS: Anion Gap 5 (5-15); BUN 12 mg/dL (7-18); Calcium,Total 8.2 mg/dL (8.5-10.1); Chloride 106 mmol/L (98-107); Creatinine, Serum 0.55 mg/dL (0.55-1.02); EST Glomerular Filtration Rate 114 mL/min (>60); Est Glom Filt Rate - Afr Amer 138 mL/min (>60); Estimated Creatinine Clearance 46.02 ml/min; Glucose 112 mg/dL (74-106); Potassium 3.3 mmol/L (3.5-5.1); Sodium Level 138 mmol/L (136-145)
[2022-07-17 09:26] VITALS: BP 97/64; PULSE 135; RESP 16; TEMP 36.8; O2SAT 96
[2022-07-17] MEDS: Vitamin B Comp W-C Capsule 1 CAP PO (09:32)
[2022-07-17] MEDS: dilTIAZem CD 120 MG Capsule PO (09:32)
[2022-07-17] MEDS: Furosemide 40 MG Tablet PO (09:32)
[2022-07-17] MEDS: Ascorbic Acid 500 MG Tablet 1000 MG PO (09:32)
[2022-07-17] MEDS: Multivitamins,Ther W-Minerals Tablet 1 TABLET PO (09:32)
[2022-07-17] MEDS: Potassium Chloride Oral Tablet 20 MEQ 40 MEQ PO (09:32)
[2022-07-17] MEDS: APIXABAN 5 MG TABLET 10 MG PO (09:33)
[2022-07-17 09:45] VITALS: O2SAT 96
[2022-07-17 10:53] VITALS: BP 111/90; PULSE 135; RESP 16; TEMP 36.8; O2SAT 95
[2022-07-17] MEDS: Metoprolol Tartrate 100 MG Tablet PO (10:53)
[2022-07-17 13:10] VITALS: BP 111/69; PULSE 68; RESP 16; TEMP 36.7; O2SAT 95
--- NOTE | 2022-07-17 13:52 | PCM.DC.SUM ---
Providers Date of Admission: 07/10/22 Date of Discharge: 07/17/22 Primary Care Physician: Dr. Whitney Demarco, DO Consultations 07/12/22 13:41 Consult: Cardiology Routine Consulting Provider: Pao Wu Reason for Consult: sinus tachycardia EMERGENT Consult: No Notified: Yes Date Notified: 07/12/22 Time Notified: 13:42 Method of Notification: Verbal 07/12/22 14:49 Consult: Self Pay Representative / Pulmonary Medicine Routine Consulting Provider: Pulmonary Medicine ignacia Millheim Reason for Consult: hypotension EMERGENT Consult: No Notified: Yes Date Notified: 07/12/22 Time Notified: 13:39 Method of Notification: Verbal Reason For Visit: AFLUTTER WITH PNEUMONIA Diagnosis Discharge Diagnosis (1) Atrial flutter: Status: Acute Code(s): I48.92 - Unspecified atrial flutter (2) Pulmonary emboli: Status: Acute Code(s): I26.99 - Other pulmonary embolism without acute cor pulmonale (3) Hypertension: Status: Chronic Code(s): I10 - Essential (primary) hypertension Plan #New onset atrial flutter with RVR #Hypoxia due to community acquired pneumonia #PE #Acute on chronic heart failure preserved ejection fraction #Hypothyroidism: #Hyperlipidemia: #History of sleep apnea: Medications at Discharge Home Medications B complex-C 500 mg-folic 400 mcg-zinc 23.9 mg-copper 3 mg-vit E tablet 1 tab PO DAILY supplement 06/19/19 allopurinol 300 mg tablet 300 mg PO DAILY gout 06/19/19 ascorbic acid (vitamin C) 1,000 mg tablet 1,000 mg PO DAILY supplement 06/19/19 multivit with tiujtiwa-ayvl-WP-lutein 8 mg iron-400 mcg-300 mcg tablet 1 tab PO DAILY supplement 06/19/19 thyroid (pork) 30 mg tablet 45 mg PO DAILY thyroid 06/19/19 aspirin 81 mg tablet 81 mg PO DAILY heart health 07/10/22 atorvastatin 40 mg tablet 40 mg PO QHS cholesterol 07/10/22 clopidogrel 75 mg tablet (Plavix) 75 mg PO DAILY anti platelet 07/10/22 apixaban 5 mg (74 tabs) tablets in a dose pack ([employer] DVT-PE Treat 30D Start) See Rx Instructions .Route .COMPLEX #74 tabs 07/17/22 diltiazem HCl 120 mg capsule,extended release 24 hr 120 mg PO DAILY 30 days #30 caps 07/17/22 furosemide 40 mg tablet 40 mg PO DAILY 30 days #30 tabs 07/17/22 metoprolol tartrate 100 mg tablet 100 mg PO BID 30 days #60 tabs 07/17/22 potassium chloride 10 mEq capsule,extended release 20 meq PO DAILY #14 caps 07/17/22 Hospital Course Procedures - (echo, cta) Summary of Care Provided Minutes Spent on Discharge: 32 Hospital Course: 81 F hx of EDDIE not using cpap, HTN, gout, hypothyroidism, who presneted to [facility] 07/10 for SOB and cough. She contacted her PCP and was told to come to ED. She had upper and lower R infiltrates and WBC count 13.3. Was also found to have new onset aflutter and was placed on cardizem gtt. Her O2 sat was 90-91% and did not require O2. She was dx with CAP and started on levaquin w/ 48hr dosing d/t Cr. For her new onset flutter she had echo repeated which demonstrated EF 55%, mod enlarged right and left atrium enlargement, stage III diastolic dysfunction, and pulmonary arterry systolic pressure of 42mhg. There was difficulty controlling her heart rate and remained in the 130's in flutter. She was transitioned to oral cardizem and lopressor. Received digoxin without significant improvement and was started on an amiodarone gtt which improved rate. Her metoprolol was increased and amio gtt d/c'd. Did briefly go back into flutter when metop dose was held in the AM on day of d/c for SBP in upper 90's but was controlled after she received dose. Additionally during her admission she did eventually require O2 supplementation and had CTA which showed subsegmental PE and she was started on eliquis. On day of d/c she had no complaints. Her d/c instructions are as followed: -You were found to have a fast heart rate called atrial flutter, pulmonary embolism/blood clot in the lungs, and pneumonia.? You have completed antibiotics for your pneumonia but will need to be discharged on a blood thinner, Eliquis, for your pulmonary embolism and atrial flutter as well as medications to control the rate. -Take Eliquis 10mg, (2 tabs), the evening of 07/17 and then twice daily for two days, and on 07/20 you will begin taking this twice daily -Given that you are starting Eliquis, a blood thinner, it is important that you do not take all 3 blood thinners (Eliquis, aspirin, clopidogrel) at the same time or your risk of bleeding will substantially increase.? Continue the Eliquis as above and hold aspirin and clopidogrel until you discuss with your primary care physician as Eliquis may be sufficient if it is thought your stroke was due to your underlying irregular heartbeat -You will be discharged on 2 medications to help control your heart rate.? One medication is diltiazem which you will take 120 mg daily and the other is metoprolol which you will take 100 mg twice daily. -Additionally you have been started on a water pill, furosemide, which you will take every morning as well as a low-dose potassium supplement that you will take while you are taking your Lasix -Would recommend lab work (BMP) to check your kidney function and potassium in 3 to 5 days through your primary care physician's office.? Please call their office upon discharge to obtain order for lab work. -Advised to check your blood pressure every morning prior to taking her medications and call your physician if your heart rate is less than 50 or your systolic blood pressure (top number) is less than 100. -Due to your blood pressure being well controlled on metoprolol and Cardizem you will no longer take your lisinopril, bisoprolol, or amlodipine unless otherwise instructed by your primary care physician -You have an appointment with cardiology on August 13 at [address] Wu.? It is important you keep this appointment.? If there are any questions or concerns about scheduling please call their office. -Dr. Wu it indicated he wanted you to have an event monitor on discharge which is something that you wear to monitor your heart rate.? Order will be placed for this. -Please call your primary care provider's office upon discharge to schedule a hospital follow up within 1 week. -For any concerning signs or symptoms please call 911 or proceed to the nearest emergency department Physical Exam Narrative General: Alert, oriented, no apparent distress HEENT: Atraumatic, normocephalic Eyes: Anicteric, normal conjunctiva, extraocular movements grossly intact Neck: Supple Respiratory: Clear to auscultation bilaterally, normal respiratory effort Cardiovascular: Irregularly irregular, heart rate 90s to low 100s GI: Soft, nontender, nondistended Extremities: No edema Musculoskeletal: Moving all extremities Neuro: No overt focal neurological deficits Skin: No rashes appreciated Psych: Cooperative Weight / BMI Weight Weight: 104.2 kg Body Mass Index (BMI) 34.9 ABG / Lab / Microbiology Data Result Diagrams: 07/17/22 05:09 07/17/22 05:09 Laboratory: Laboratory Results - last 24 hr 07/17/22 05:09: WBC 9.4, RBC 3.32 L, Hgb 8.6 L, Hct 28.1 L, MCV 84.6, MCH 25.9 L, MCHC 30.6 L, RDW Std Deviation 44.5 H, RDW Coeff of Rex 14.5, Plt Count 269, MPV 10.6, Immature Gran % (Auto) 0.500, Neut % (Auto) 74.1 H, Lymph % (Auto) 12.5 L, [place] % (Auto) 9.0, Eos % (Auto) 3.4, Baso % (Auto) 0.5, Absolute Neuts (auto) 7.0, Absolute Lymphs (auto) 1.18, Nucleated RBC % 0 07/17/22 05:09: Sodium 138, Potassium 3.3 L, Chloride 106, Carbon Dioxide 27.0, Anion Gap 5, BUN 12, Creatinine 0.55, Estim Creat Clear Calc 46.02, Est GFR (MDRD) Af Amer 138, Est GFR (MDRD) Non-Af 114, BUN/Creatinine Ratio 22.0 H, Glucose 112 H, Calcium 8.2 L Microbiology: Microbiology 07/10/22 15:30 Blood Culture (Wb) - Anticubital Right Blood Culture - Final No growth in 5 days. 07/10/22 15:30 Blood Culture (Wb) - Anticubital Left Blood Culture - Final No growth in 5 days. 07/10/22 12:30 Nasal Secretion SARS-CoV-2 & FLU Antigen (Rapid) - Final D/C Instructions Discharge Diet: - (DASH diet) Meaningful Use Info Meaningful Use Diagnoses (Choose all that apply): VTE VTE Anticoag overlap given w/in hospital stay or rx'd at dc?: Yes Pt receive overlap for 5 days?: No Reason overlap not ordered, prescribed, or given for 5 days: Medical Contraindication Discharge Plan Admission Admit Date/Time: 07/10/22 15:46 Primary Reason for Your Visit: Shortness of breath Attending Provider: Jeimy Melvin Primary Care Provider: Whitney Demarco Consulting Providers: Hao Sánchez ; Pao Wu ; Ricardo Bass ; Austin Bob ; Miko Choi ; Julien Manzano ; Elizabeth Anderson NP ; Silvana Morales Instructions Patient Instructions: DVT/PE Discharge instruction sheet Additional Instructions / Restrictions: DISCHARGE INSTRUCTIONS PLEASE READ *Please take this with you to your next doctors appointment* -You were found to have a fast heart rate called atrial flutter, pulmonary embolism/blood clot in the lungs, and pneumonia. You have completed antibiotics for your pneumonia but will need to be discharged on a blood thinner, Eliquis, for your pulmonary embolism and atrial flutter as well as medications to control the rate. -Take Eliquis 10mg, (2 tabs), the evening of 07/17 and then twice daily for two days, and on 07/20 you will begin taking this twice daily -Given that you are starting Eliquis, a blood thinner, it is important that you do not take all 3 blood thinners (Eliquis, aspirin, clopidogrel) at the same time or your risk of bleeding will substantially increase. Continue the Eliquis as above and hold aspirin and clopidogrel until you discuss with your primary care physician as Eliquis may be sufficient if it is thought your stroke was due to your underlying irregular heartbeat -You will be discharged on 2 medications to help control your heart rate. One medication is diltiazem which you will take 120 mg daily and the other is metoprolol which you will take 100 mg twice daily. -Additionally you have been started on a water pill, furosemide, which you will take every morning as well as a low-dose potassium supplement that you will take while you are taking your Lasix -Would recommend lab work (BMP) to check your kidney function and potassium in 3 to 5 days through your primary care physician's office. Please call their office upon discharge to obtain order for lab work. -Advised to check your blood pressure every morning prior to taking her medications and call your physician if your heart rate is less than 50 or your systolic blood pressure (top number) is less than 100. -Due to your blood pressure being well controlled on metoprolol and Cardizem you will no longer take your lisinopril, bisoprolol, or amlodipine unless otherwise instructed by your primary care physician -You have an appointment with cardiology on August 13 at [address] Wu. It is important you keep this appointment. If there are any questions or concerns about scheduling please call their office. -Dr. Wu it indicated he wanted you to have an event monitor on discharge which is something that you wear to monitor your heart rate. Order will be placed for this. -Please call your primary care provider's office upon discharge to schedule a hospital follow up within 1 week. -For any concerning signs or symptoms please call 911 or proceed to the nearest emergency department Discharge Orders/Prescriptions Prescriptions: New [employer] DVT-PE Treat 30D Start 5 mg (74 tabs) tablets,dose pack See Rx Instructions .ROUTE .COMPLEX Qty: 74 0RF Rx Instructions: Take 10mg, 2 tabs, the evening of 07/17 and then twice daily for two days, on 07/20 you will take 1 tab twice daily thereafter furosemide 40 mg Tablet 40 mg PO DAILY 30 Days Qty: 30 0RF metoprolol tartrate 100 mg Tablet 100 mg PO BID 30 Days Qty: 60 0RF diltiazem HCl 120 mg Capsule,Extended Release 24hr 120 mg PO DAILY 30 Days Qty: 30 0RF potassium chloride 10 mEq capsule, extended release 20 meq PO DAILY Qty: 14 0RF Continued ascorbic acid (vitamin C) 1,000 MG tablet 1,000 mg PO DAILY allopurinol 300 MG tablet 300 mg PO DAILY thyroid (pork) 30 mg tablet 45 mg PO DAILY Label Comments: TAKE 1 TABLET BY MOUTH EVERY DAY B bpblci-S-fjzxz-rijr-jixvif-Q 1 EACH tablet 1 tab PO DAILY xvjfwirc-rzi-mtkl-FA-lutein 1 EACH tablet 1 tab PO DAILY atorvastatin 40 mg Tablet 40 mg PO QHS Held clopidogrel [Plavix] 75 mg Tablet 75 mg PO DAILY Hold Instructions: Resume on 08/15/22. Hold until discussing with your primary care physician aspirin 81 mg Tablet 81 mg PO DAILY Hold Instructions: Resume on 07/25/22. Hold until discussing with your primary care physician Discontinued lisinopril 20 MG tablet 20 mg PO BID amlodipine 5 MG tablet 5 mg PO DAILY bisoprolol fumarate 10 mg tablet 10 mg PO QHS Label Comments: TAKE 1 TABLET BY MOUTH ONCE DAILY Other Ambulatory Orders: 30 Day Event Recorder Preventi (Urgent) Timeframe: 1 Day Facility: [facility] - Location: Cardiovascular Services Ordered By: Dr. Jeimy Melvin Referrals / Follow Up: Pao Wu MD [Med Staff - Active Staff] - 08/13/22 11:00 am () Whitney Demarco DO [Primary Care Provider] - 07/19/22 1:30 pm Disposition Disposition (needs filled in before D/C Order can be placed): Home, Self Care Charges/Coding Visit Charges Inpatient E&M: 58395 Disch Hosp >30min
--- NOTE | 2022-07-17 14:30 | CASEMGMT ---
RN CM updated that patient is discharging today. RN CM in to discuss discharge needs with patient. Patient and son in room. Patient denies needs at discharge. Medications reviewed and patient will be discharging on Eliquis, savings card provided to patient. Patient denied further needs or questions at this time.
--- NOTE | 2022-07-17 15:58 | PHA.DC.MR ---
Pharmacy Service has performed discharge medication reconciliation for this patient. The patient's discharge medication list was reviewed for discrepancies and discrepancies were resolved. Unable to res counselor before discharge. Home Medications B complex-C 500 mg-folic 400 mcg-zinc 23.9 mg-copper 3 mg-vit E tablet 1 tab PO DAILY supplement 06/19/19 allopurinol 300 mg tablet 300 mg PO DAILY gout 06/19/19 ascorbic acid (vitamin C) 1,000 mg tablet 1,000 mg PO DAILY supplement 06/19/19 multivit with omfbdeoe-vwha-OJ-lutein 8 mg iron-400 mcg-300 mcg tablet 1 tab PO DAILY supplement 06/19/19 thyroid (pork) 30 mg tablet 45 mg PO DAILY thyroid 06/19/19 aspirin 81 mg tablet 81 mg PO DAILY heart health 07/10/22 atorvastatin 40 mg tablet 40 mg PO QHS cholesterol 07/10/22 clopidogrel 75 mg tablet (Plavix) 75 mg PO DAILY anti platelet 07/10/22 apixaban 5 mg (74 tabs) tablets in a dose pack ([employer] DVT-PE Treat 30D Start) See Rx Instructions .Route .COMPLEX #74 tabs 07/17/22 diltiazem HCl 120 mg capsule,extended release 24 hr 120 mg PO DAILY 30 days #30 caps 07/17/22 furosemide 40 mg tablet 40 mg PO DAILY 30 days #30 tabs 07/17/22 metoprolol tartrate 100 mg tablet 100 mg PO BID 30 days #60 tabs 07/17/22 potassium chloride 10 mEq capsule,extended release 20 meq PO DAILY #14 caps 07/17/22
== END 2022-07-17 15:21 | disposition home or self-care (01) | DRG 193 ==
LOC: ED 15:40 → PCU 16:17 → ICU 07-12 14:48 → PCU 07-15 05:58
PROVIDERS: Internal Medicine Cardiovascular Disease; Student in an Organized Health Care Education/Training Program; Admitting Provider Family Medicine; Emergency Provider Emergency Medicine; PCP Internal Medicine; Visit Provider Internal Medicine
DX: J18.9 Pneumonia, unspecified organism (principal); I26.99 Other pulmonary embolism without acute cor pulmonale; I50.33 Acute on chronic diastolic (congestive) heart failure; I48.92 Unspecified atrial flutter; I95.89 Other hypotension; I11.0 Hypertensive heart disease with heart failure; I48.91 Unspecified atrial fibrillation; E78.5 Hyperlipidemia, unspecified; D64.9 Anemia, unspecified; M10.9 Gout, unspecified; E03.9 Hypothyroidism, unspecified; E87.6 Hypokalemia; G47.33 Obstructive sleep apnea (adult) (pediatric); Z79.82 Long term (current) use of aspirin; R09.02 Hypoxemia; R59.0 Localized enlarged lymph nodes; G89.29 Other chronic pain; Z86.711 Personal history of pulmonary embolism; Z79.01 Long term (current) use of anticoagulants
CPT/HCPCS: 36415; 71045; 71275; 80048; 80053; 83605; 83880; 84443; 84484; 85025; 87040; 87428; 93005; 93306; 94640; 94668; 94762; 97802; 97803; 99252; 99285; J7030; J7040; J7050; Q9967; A4216; G0463; J0153; J1940

== ENCOUNTER → 2022-10-17 | Outpatient (CLI) | payer MEDICARE, SELFPAY ==
--- NOTE | 2022-10-18 13:00 | STRESSREP ---
Stress Test Report Date: 10/17/2022 Procedure: Pharmacologic stress nuclear imaging study Indications: Arrhythmia Consent: Per the patient Procedure: The patient underwent pharmacologic (Regadenoson 0.4mg ) evaluation with a peak heart rate of 105 beats per minute (74%predicted maximal heart rate) and a peak blood pressure of 150/70 mmHg. The baseline ECG demonstrated atrial flutter. The peak pharmacologic ECG demonstrated no diagnostic changes. Baseline atrial flutter noted. There was no complaint of chest discomfort during pharmacologic infusion or recovery. The patient was injected with 15 millicuries of technetium 99m Cardiolite and subsequently rest SPECT Cardiolite nuclear imaging was obtained in the horizontal long, vertical long, and short axis views. The patient underwent pharmacologic (Regadenoson) evaluation. The patient was injected with 44.7 millicuries of technetium 99m Cardiolite and subsequently stress SPECT Cardiolite nuclear imaging was obtained in the horizontal long, vertical long, and short axis views. A gated Cardiolite study at peak stress was obtained. The examination was stopped secondary to completion of protocol. Rest and stress SPECT Cardiolite nuclear imaging status post realignment, normalization, and attenuation correction demonstrate no fixed or reversible perfusion defects. There is end systolic thickening and brightening. Gated images show dilated left ventricular cavity. The reported LVEF is 62%. Impression: 1. Pharmacologic (Regadenoson) evaluation 2. Peak pharmacologic ECG with no diagnostic changes. 3. Baseline atrial flutter. 5. Rest and stress SPECT Cardiolite nuclear imaging demonstrate relative uniform tracer uptake and myocardial perfusion appearing within normal limits. 6. The gated Cardiolite study reports an LVEF of 62%. This note was generated with [employer] software. It may contain incorrect words, spelling, and punctuation that were not noted in checking the note before signing.
== END | disposition home or self-care (01) ==
PROVIDERS: PCP Internal Medicine; Referring Provider Internal Medicine Cardiovascular Disease; Visit Provider Internal Medicine Cardiovascular Disease
DX: I48.91 Unspecified atrial fibrillation (principal); I26.99 Other pulmonary embolism without acute cor pulmonale; I48.92 Unspecified atrial flutter; I51.89 Other ill-defined heart diseases
CPT/HCPCS: 78452; 93017; A9500; J2785

== ENCOUNTER → 2022-10-19 | Outpatient (CLI) | payer MEDICARE, SELFPAY ==
[2022-10-19 15:04] LABS: Hematocrit 37.5 % (37-47); Hemoglobin 11.4 g/dL (12.0-15.0); Mean Corp Hgb Conc 30.4 g/dL (32-36); Mean Corpuscular Hgb 25.6 pg (27.0-32.0); Mean Corpuscular Volume 84.1 fL (81-99); Mean Platelet Vol. 10.7 fl (6.2-12.0); Platelet Count 284 K/mm3 (150-450); RBC Distribution Width CV 19.6 % (11.6-14.6); RBC Distribution Width SD 60.2 fl (35.1-43.9); Red Blood Count 4.46 M/mm3 (4.2-5.4); White Blood Count 7.1 K/mm3 (4.4-11.0)
[2022-10-19 15:35] LABS: Vitamin B12 504 pg/mL (211-911)
[2022-10-19 16:09] LABS: Ferritin 19 ng/mL (8-252); Iron 34 ug/dL (50-170); Thyroid Stim Hormone (TSH) 3.78 uIU/mL (0.358-3.74)
[2022-10-19 16:28] LABS: Anion Gap 7 (5-15); BUN 21 mg/dL (7-18); BUN/Creat Ratio 23.5 RATIO (10-20); Calcium,Total 9.5 mg/dL (8.5-10.1); Chloride 103 mmol/L (98-107); Creatinine, Serum 0.89 mg/dL (0.55-1.02); EST Glomerular Filtration Rate 65 mL/min (>60); Est Glom Filt Rate - Afr Amer 78 mL/min (>60); Glucose 127 mg/dL (74-106); Magnesium 2.2 mg/dL (1.6-2.6); Potassium 3.8 mmol/L (3.5-5.1); Sodium Level 136 mmol/L (136-145)
[2022-10-25 18:07] LABS: Free Kappa Light Chains 22.8 mg/L (3.3-19.4); Free Lambda Light Chains 16.2 mg/L (5.7-26.3); Vitamin B1, Thiamine 197.4 nmol/L (66.5-200.0)
== END | disposition home or self-care (01) ==
PROVIDERS: Psychiatry & Neurology Neurology; PCP Internal Medicine; Referring Provider Nurse Practitioner Family; Visit Provider Nurse Practitioner Family
DX: G62.9 Polyneuropathy, unspecified (principal); I48.92 Unspecified atrial flutter; I48.91 Unspecified atrial fibrillation; G31.84 Mild cognitive impairment of uncertain or unknown etiology; R42 Dizziness and giddiness; R00.0 Tachycardia, unspecified; I10 Essential (primary) hypertension; Z86.2 Personal history of diseases of the blood and blood-forming organs and certain disorders involving the immune mechanism
CPT/HCPCS: 36415; 80048; 82607; 82728; 82746; 83540; 83735; 83883; 84425; 84443; 85027

== ENCOUNTER → 2022-12-13 | Outpatient (CLI) | payer MEDICARE, SELFPAY ==
[2022-12-18 12:09] LABS: Albumin 3.6 g/dL (2.9-4.4); Alpha-1-Globulins 0.3 g/dL (0.0-0.4); Alpha-2-Globulins 0.9 g/dL (0.4-1.0); Gamma Globulin 0.9 g/dL (0.4-1.8); Immunoglobulin A 76 mg/dL (64-422); Immunoglobulin G 967 mg/dL (586-1602); Immunoglobulin M 28 mg/dL (26-217); PROEL- TOTAL PROTEIN 6.7 g/dL (6.0-8.5)
== END | disposition home or self-care (01) ==
PROVIDERS: PCP Internal Medicine; Referring Provider Psychiatry & Neurology Neurology; Visit Provider Psychiatry & Neurology Neurology
DX: G62.9 Polyneuropathy, unspecified (principal)
CPT/HCPCS: 36415; 82784; 84165; 86334; 86335

== ENCOUNTER 2023-10-04 21:41 | Emergency (ER) | payer MEDICARE, SELFPAY ==
[2023-10-04 21:42] VITALS: BP 166/111; PULSE 109; RESP 20; TEMP 36.1; O2SAT 96; BMI 32.9
--- NOTE | 2023-10-04 22:18 | EX.ED.DYSGE1 ---
HPI History of Present Illness Chief Complaint: Complaint Informant: patient Onset/Context/Timing Onset: Today Narrative Narrative: Patient presents with hematuria, dysuria, and urgency since 5 PM this evening. She states she been outside working in her yard all day without any difficulty. Around 5 PM she had sudden urgency with difficulty making it to the bathroom in time. She has noted blood in her urine that seems to be getting more concentrated. She does have urinary frequency and urgency but only urinating small amounts at a time. Patient is on chronic Eliquis because of a history of atrial fibrillation. [facility] Medical History (Updated 10/05/23 @ 00:[address] Maria D Oshea MD) Essential hypertension Pneumonia Chronic pain GERD (gastroesophageal reflux disease) Non-smoker CPAP (continuous positive airway pressure) dependence Atrial fibrillation Chest pain Stroke/cerebrovascular accident CHF (congestive heart failure) Rectal bleeding Anemia Hypothyroidism EDDIE (obstructive sleep apnea) Gout Home Medications ?Medication ?Instructions ?Recorded ?Last Taken ?Type apixaban 5 mg tablet (Eliquis) 5 mg PO BID #60 tabs 08/03/22 Unknown Rx furosemide 40 mg tablet 40 mg PO DAILY #90 tabs 08/03/22 Unknown Rx metoprolol tartrate 100 mg tablet 100 mg PO BID #180 tabs 08/03/22 Unknown Rx potassium chloride 10 mEq 10 meq PO BID 10/03/22 Unknown History capsule,extended release thyroid (pork) 15 mg tablet ([employer] 15 mg PO DAILY 10/03/22 Unknown History Thyroid) thyroid (pork) 30 mg tablet (DES[employer] 30 mg PO DAILY 10/03/22 Unknown History Thyroid) allopurinol 300 mg tablet 300 mg PO DAILY 10/19/22 Unknown History pravastatin 40 mg tablet 20 mg (1/2 x 40 mg) PO .COMPLEX 11/28/22 Unknown Rx #30 tabs ascorbic acid (vitamin C) 1,000 mg 1,000 mg PO Q12H 12/13/22 Unknown History tablet,extended release (Vitamin C With Aubrie Hips) cholecalciferol (vitamin D3) 125 125 mcg PO DAILY 12/13/22 Unknown History mcg (5,000 unit) tablet (Vitamin D3) vitamin A-vit C-vit E-zinc-Cu 1 tab PO BID 12/13/22 Unknown History tablet diltiazem HCl 180 mg 180 mg PO DAILY dose increased 10/03/23 Unknown Rx capsule,extended release 24 hr from 120 mg to 180 mg #90 caps phenazopyridine 200 mg tablet 200 mg PO BID PRN PRN Pain #10 tabs 10/05/23 Unknown Rx (Pyridium) sulfamethoxazole 800 1 tab PO BID #6 tabs 10/05/23 Unknown Rx mg-trimethoprim 160 mg tablet (Bactrim DS) Allergy/AdvReac Type Severity Reaction Status Date / Time Penicillins (PCN) Allergy Severe Shortness Verified 10/04/23 21:43 of breath atorvastatin AdvReac Intermediate Myalgias Verified 10/04/23 21:43 Family History Mother CAD (coronary artery disease) Heart disease Father CVA (cerebral vascular accident) Heart disease Other Diabetes Surgical History Hx of appendectomy Hx of cholecystectomy Social History household members: none Smoking Status: Never smoker second hand exposure: No alcohol intake: never details: occasionally substance use type: does not use what type of physical activity do you participate in: none seatbelt use: always ROS ROS ED Constitutional Constitutional ED: Denies chills or fever(s) ENT ENT ED: Denies rhinorrhea Cardiovascular Cardiovascular: Denies chest pain or palpitations Respiratory/Chest Respiratory/Chest: Denies cough or dyspnea Gastrointestinal Gastrointestinal: Reports abdominal pain Genitourinary Genitourinary ED: Reports dysuria, hematuria and urinary frequency Musculoskeletal Musculoskeletal: Denies back pain Neurologic Neurologic: Denies headache(s) Psychiatric Psychiatric: Denies anxiety or depression EXAM Physical Exam Const Vital Signs: 10/04/23 21:42 10/04/23 23:45 Temperature 97 F L Temperature Source Temporal Pulse Rate 109 H 77 Respiratory Rate 20 H 18 Blood Pressure 166/111 H 145/89 H Blood Pressure Mean 129 107 Pulse Ox 96 97 Oxygen Delivery Method Room Air Room Air Positive well nourished and well developed General Appearance ED: well developed HEENT Reports moist mucous membranes Eyes EOMs intact bilaterally Chest Wall inspection of chest normal and palpation of chest normal Resp normal respiratory effort and clear to auscultation bilaterally Cardio regular rate and regular rhythm GI GI Narrative: Abdomen soft with mild suprapubic tenderness. No guarding or rebound. Back/Spine no CVA tenderness Extremity normal to inspection Neuro oriented x3 and no sensory deficits noted Psych mental status grossly normal Skin no rashes or lesions noted MDM MDM MDM Narrative Medical decision making narrative: Urinalysis obtained and urine culture sent. Lab Data Labs: Laboratory Results - last 24 hr 10/04/23 21:50 Urine Color Red Urine Clarity Turbid Urine pH 7.0 Ur Specific [place] 1.015 Urine Protein 500 H Urine Glucose (UA) Normal Urine Ketones 5 H Urine Occult Blood 250 H Urine Nitrite Negative Urine Bilirubin Negative Urine Urobilinogen Normal Ur Leukocyte Esterase Negative Urine RBC > 100 SEEN Urine WBC 0 SEEN Ur Squamous Epith Cells 0 SEEN Urine Bacteria RARE Urine Mucus 0 SEEN Radiography Diagnostic Testing: Clinical Impression(s) from Imaging Studies Abdomen/Pelvis CT 10/04/23 23:23 IMPRESSION: 1. No ureteral stone, nephrolithiasis, or hydronephrosis. No perinephric fluid. 2. Cardiomegaly without evidence of pericardial effusion. 3. Large hiatal hernia. 4. Colonic diverticulosis without discrete evidence of acute diverticulitis. Electronically Signed: Rogerio Givens DO at 23:53 EDT , Treatment and Re-Evaluation :: Bladder scan was performed and reveals no retained urine after voiding. Urinalysis returns with greater than 100 red cells but 0 white cells and rare bacteria. No nitrites noted. In light of this I did speak with the patient and daughter at bedside. We chose to send her for CT imaging of the abdomen and pelvis to ensure no obvious renal stone, renal mass, any other cause of her hematuria. CT scan returns with no obvious acute urologic abnormalities. Test results discussed with patient. Given her symptoms I will go ahead and treat her with a course of antibiotics as well as Pyridium to help with pain. Urine culture has been sent. Return instructions provided. Discharge Plan Triage Chief Complaint: Complaint ED Provider: Maria D Oshea Dx/Rx/DC Orders Clinical Impression: Acute hemorrhagic cystitis Instructions: ED Hematuria, ED Cystitis Female Adult Prescriptions: New sulfamethoxazole-trimethoprim [Bactrim DS] 800-160 mg tablet 1 tab PO BID Qty: 6 0RF phenazopyridine [Pyridium] 200 mg tablet 200 mg PO BID PRN PRN (Reason: Pain) Qty: 10 0RF No Action metoprolol tartrate 100 mg tablet 100 mg PO BID Qty: 180 3RF furosemide 40 mg tablet 40 mg PO DAILY Qty: 90 3RF Eliquis 5 mg tablet 5 mg PO BID Qty: 60 11RF Vitamin C With Aubrie Hips 1,000 mg tablet extended release 1,000 mg PO Q12H vitamin A-vit C-vit E-zinc-Cu Tablet 1 tab PO BID cholecalciferol (vitamin D3) [Vitamin D3] 125 mcg (5,000 unit) tablet 125 mcg PO DAILY [employer] Thyroid 30 mg tablet 30 mg PO DAILY [employer] Thyroid 15 mg tablet 15 mg PO DAILY potassium chloride 10 mEq capsule, extended release 10 meq PO BID allopurinol 300 mg tablet 300 mg PO DAILY pravastatin 40 mg tablet 20 mg PO .COMPLEX Qty: 30 11RF Rx Instructions: 20 mg orally every other night; diltiazem HCl 180 mg capsule,extended release 24hr 180 mg PO DAILY Qty: 90 2RF Primary Care Provider: Whitney Demarco Referrals: Whitney Demarco DO [Primary Care Provider] - 3-5 Days if not improving Print Language: Guyanese Disposition Disposition: Home, Self Care
[2023-10-04 22:40] LABS: Mucous, Urine 0 SEEN /hpf (<or=2+); Squamous Epithelial Cells - UA 0 SEEN /hpf (5-10); White Blood Cells 0 SEEN /hpf (0-5)
[2023-10-04 22:57] LABS: Color, Urine Red (Yellow); Glucose, Dipstick Normal (Normal); Ketone-Dipstick 5 mg/dl (Negative); Leukocyte Esterase-Dipstick Negative /ul (Negative); Nitrite-Dipstick Negative (Negative); Occult Blood-Urine 250 /ul (Negative); Protein-Dipstick 500 mg/dl (Negative); Specific Gravity, Urine 1.015 (1.002-1.030); Urine Bilirubin Dipstick Negative (Negative); Urine Clarity Turbid (Clear); Urine Urobilinogen Normal (Normal)
[2023-10-04 23:07] LABS: Bacteria RARE /hpf (None Seen); Red Blood Cells-Urine > 100 SEEN /hpf (0-5)
--- NOTE | 2023-10-04 23:23 | CT_ITS ---
EXAM: CT ABDOMEN AND PELVIS WITHOUT INTRAVENOUS CONTRAST CLINICAL INDICATION: hematuria TECHNIQUE: Helically acquired images were obtained of the abdomen and pelvis without intravenous contrast. This CT exam was performed using one or more of the following dose reduction techniques: automated exposure control, adjustment of the mA and/or kV according to patient size, and/or use of iterative reconstruction technique. COMPARISON: CTA chest, 07/12/2022 FINDINGS: LOWER THORAX: Cardiomegaly without evidence of pericardial effusion. Large hiatal hernia. Bibasilar scarring and/or atelectasis without discrete pneumonia. ABDOMEN: LIVER: Hepatomegaly with inferior left hepatic cyst for which no follow-up is indicated. GALLBLADDER AND BILE DUCTS: No significant abnormality. No calcified gallstones. No gallbladder distention or wall edema. No intra- or extrahepatic biliary ductal dilation. PANCREAS: No significant abnormality. No focal cystic mass. SPLEEN: No significant abnormality. Normal size without focal cystic or solid mass. ADRENALS: Bilateral adrenal hyperplasia without focal nodule. KIDNEYS AND URETERS: Right renal cyst for which no follow-up is indicated. Normal renal size and position. No ureteral stone, nephrolithiasis, or hydronephrosis. No perinephric fluid. STOMACH AND BOWEL: Colonic diverticulosis without discrete evidence of acute diverticulitis. No stomach or bowel distention. PELVIS: APPENDIX: No evidence of acute appendicitis. BLADDER: The urinary bladder is mostly decompressed. REPRODUCTIVE: Normal as visualized. No mass. ABDOMEN and PELVIS: INTRAPERITONEAL SPACE: No significant abnormality. No ascites or other fluid collection. No free air. BONES/JOINTS: Degenerative changes in the spine and pelvis. No suspicious lytic or blastic abnormality. SOFT TISSUES: Small fat-containing bilateral inguinal hernias and small fat-containing umbilical hernia. VASCULATURE: Atherosclerosis of the aorta and its branch vessels. Abdominal aorta is non-dilated. LYMPH NODES: No significant abnormality. No enlarged lymph nodes. CT/Abdomen/Pelvis without Cont IMPRESSION: 1. No ureteral stone, nephrolithiasis, or hydronephrosis. No perinephric fluid. 2. Cardiomegaly without evidence of pericardial effusion. 3. Large hiatal hernia. 4. Colonic diverticulosis without discrete evidence of acute diverticulitis. Electronically Signed: Rogerio Givens DO at 23:53 EDT ,
[2023-10-04 23:45] VITALS: BP 145/89; PULSE 77; RESP 18; O2SAT 97
[2023-10-05] MEDS: Phenazopyridine 95 MG Tablet 190 MG PO (00:15)
[2023-10-05] MEDS: Smz/Tmp Ds Tablet 1 TABLET PO (00:15)
[2023-10-05 00:17] VITALS: BP 143/77; PULSE 75; RESP 16; TEMP 36.6; O2SAT 97
== END 2023-10-05 00:20 | disposition home or self-care (01) ==
PROVIDERS: Emergency Provider Emergency Medicine; PCP Internal Medicine; Visit Provider Emergency Medicine
DX: N30.01 Acute cystitis with hematuria (principal); I11.0 Hypertensive heart disease with heart failure; I50.9 Heart failure, unspecified; I48.91 Unspecified atrial fibrillation; Z79.01 Long term (current) use of anticoagulants; G47.33 Obstructive sleep apnea (adult) (pediatric); Z99.89 Dependence on other enabling machines and devices; Z86.73 Personal history of transient ischemic attack (TIA), and cerebral infarction without residual deficits; Z79.899 Other long term (current) drug therapy; K21.9 Gastro-esophageal reflux disease without esophagitis; M10.9 Gout, unspecified; Z90.49 Acquired absence of other specified parts of digestive tract
CPT/HCPCS: 74176; 81001; 87086; 87088; 99283

== ENCOUNTER → 2023-10-22 | Outpatient (CLI) | payer MEDICARE, SELFPAY ==
[2023-10-22 12:34] LABS: Mucous, Urine 0 SEEN /hpf (<or=2+)
[2023-10-22 13:10] LABS: Color, Urine Yellow (Yellow); Glucose, Dipstick Normal (Normal); Ketone-Dipstick 5 mg/dl (Negative); Leukocyte Esterase-Dipstick 500 /ul (Negative); Nitrite-Dipstick Positive (Negative); Occult Blood-Urine 250 /ul (Negative); Protein-Dipstick 100 mg/dl (Negative); Urine Clarity Turbid (Clear); Urine Urobilinogen 1 mg/dl (Normal)
[2023-10-22 13:13] LABS: Urine Bilirubin Dipstick 1 mg/dL (Negative)
[2023-10-22 13:16] LABS: Bacteria 3+ /hpf (None Seen); Red Blood Cells-Urine 10-25 SEEN /hpf (0-5); Squamous Epithelial Cells - UA 0-5 SEEN /hpf (5-10); White Blood Cells 50-100 SEEN /hpf (0-5)
[2023-10-26 08:10] LABS: ANTINUCLEAR ANTIBODIES DIRECT Positive (Negative)
[2023-10-28 14:08] LABS: Cytoplasmic Ab (C-ANCA) <1:20 titer (Neg:<1:20); Perinuclear Ab (P-ANCA) <1:20 titer (Neg:<1:20)
== END | disposition home or self-care (01) ==
LOC: LAB 12:25
PROVIDERS: PCP Internal Medicine; Referring Provider Internal Medicine; Visit Provider Internal Medicine
DX: M10.9 Gout, unspecified (principal); R31.0 Gross hematuria
CPT/HCPCS: 36415; 81001; 82595; 86038; 86256; 87040

== ENCOUNTER 2023-11-13 17:54 | Outpatient (CLI) | payer MEDICARE, SELFPAY ==
--- NOTE | 2023-11-13 | CYSPIN_PTH ---
PATIENT: IRINA BAEZA LOC: [facility] U#:[id number] AGE/SX: 82/F ROOM: RE11/13/[address]: Dr. Imelda Melendez MD : 1940 BED: DIS: 11/13/2023 SPEC #: [id number] RECD: 11/13/23 15:00 STATUS: EDU MERCHANT #: [id number] ARNOLDO: 11/13/23 00:[address]: Imelda Melendez DEPT: CYTOLOGY RECD BY: Dain Em ENTERED: 11/14/23 07:57 SP TYPE: CYSPIN FL OTHR DR: Dr. Whitney Demarco, DO Tissues: Urine Procedures: Pap Stain (control) Special Stain Group II Cytospin Fluid HEADER OPERATION: Not noted PRE-OP DIAGNOSIS: Gross hematuria TISSUE SUBMITTED: Urine for cytology DIAGNOSIS CYTOLOGY Urine for cytology (cytospin): Occasional atypical urothelial cells present (Ilda System Category III). See comment. AM/mr 11/14/2023 COMMENT The Ilda System for urine cytology diagnostic categorization was used in the evaluation of this case. CYTOLOGY STUDY Slides are reviewed. CYTOLOGY GROSS Received is 40 ml of hazy yellow fluid labeled with the patient's name and and designated per the requisition as urine. Submitted for cytology preparation. Mr 11/14/2023 TC:? CPT: 04836
[2023-11-13 17:56] LABS: Cytology, Body Fluid / CSF SEE PATHOLOGY REPORT
== END 2023-11-13 23:59 | disposition home or self-care (01) ==
PROVIDERS: PCP Internal Medicine; Referring Provider Urology; Visit Provider Urology
DX: R31.0 Gross hematuria (principal)
CPT/HCPCS: 88108; 88313

== ENCOUNTER 2023-11-15 13:23 | Outpatient (RCR) | payer MEDICARE, SELFPAY | END 2023-11-15 19:00 | disposition home or self-care (01) | LOC: PT 13:23 | PROVIDERS: PCP Internal Medicine; Referring Provider Surgery; Visit Provider Surgery | DX: R15.2 Fecal urgency (principal); R39.15 Urgency of urination ==

== ENCOUNTER → 2023-11-27 | Outpatient (CLI) | payer MEDICARE, SELFPAY ==
--- NOTE | 2023-11-27 12:21 | BI_ITS ---
MAMMOGRAPHY - BILATERAL SCREENING REASON FOR EXAM: Female, 83 years old. Routine annual screening examination. PERTINENT HISTORY: Non-contributory. TECHNIQUE: Digital bilateral breast maryuri (3D mammographic acquisition) in the CC and MLO projections. 2-D mediolateral oblique (MLO) and craniocaudad (CC) views of both breasts were obtained. CAD: Full Field Digital Mammography with Computer Added Detection was performed. COMPARISON: Comparison is made with prior outside examination dated August 23, 2005. FINDINGS: Breast Composition: The breasts are almost entirely fatty. There are no dominant masses or suspicious calcifications. No other significant abnormalities are identified. There has been no significant change since the prior study. BI/SCRN MAMM (CAD)W/MARYURI BILAT IMPRESSION: Stable bilateral screening mammogram. Yearly follow-up mammogram recommended. (A) ASSESSMENT CATEGORY: BIRADS Category 1: Negative. A letter regarding these results will be sent to the patient by the facility within 30 days. Approximately 10% of breast cancers are not detected by mammography. A normal mammogram should not delay biopsy of a clinically suspicious abnormality. [id number] Electronically Signed: Roberto Marquez MD at 13:33 EDT ,
--- NOTE | 2023-11-27 12:21 | BD_ITS ---
STUDY: DUAL ENERGY X-RAY ABSORPTIOMETRY / DXA REASON FOR EXAM: Female, 83 years old. [id number] TECHNIQUE: Bone Mineral Density (BMD) measurements of lumbar spine and bilateral hips were obtained. COMPARISON: None. FINDINGS: Lumbar Spine (L1-L4): g/cm2 (1.007) / T-score (-0.4) / Z-score (2.4) Findings are suggestive of normal bone density with a low fracture risk. Left Femur Total: g/cm2 (0.876) / T-score (-0.5) / Z-score (1.6) Left Femoral Neck: g/cm2 (0.711) / T-score (-1.2) / Z-score (1.1) Right Femur Total: g/cm2 (0.890) / T-score (-0.4) / Z-score (1.7) Right Femoral Neck: g/cm2 (0.787) / T-score (-0.6) / Z-score (1.8) BD/Dexa Bone Density Study IMPRESSION: The patient is considered osteopenic as outlined below according to World Eduardo Organization (WHO) criteria with a low fracture risk. Reference Information: The T-score is the number of standard deviations above or below the standard which is normal for young adults at their peak bone mineral density. The World Health Organization (WHO) interprets the T-scores as follows: Above -1 Normal bone density Between -1 and -2.5 Osteopenia Equal to / or below -2.5 Osteoporosis As a practical clinical guideline, osteopenia may be graded as follows: Mild -1 through -1.5 Moderate -1.6 through -2.0 Severe -2.1 through -2.4 The Z-score is the number of standard deviations above or below age-matched controls. A Z-score of less than -1.5 would be considered abnormal. References: 1. NIH Osteoporosis and Related Bone Diseases www osteo.org 2. International Society for Clinical Densitometry www iscd.org 3. National Osteoporosis Foundation www nof.org Electronically Signed: Roberto Marquez MD at 11:25 EDT ,
== END | disposition home or self-care (01) ==
LOC: OPBD 12:21
PROVIDERS: PCP Internal Medicine; Referring Provider Internal Medicine; Visit Provider Internal Medicine
DX: Z12.31 Encounter for screening mammogram for malignant neoplasm of breast (principal); Z78.0 Asymptomatic menopausal state
CPT/HCPCS: 77063; 77067; 77080

== ENCOUNTER → 2024-03-27 | Outpatient (CLI) | payer MEDICARE, SELFPAY ==
--- NOTE | 2024-03-27 | CYSPIN_PTH ---
PATIENT: IRINA BAEZA LOC: [facility] U#:[id number] AGE/SX: 83/F ROOM: RE03/27/[address]: Dr. Whitney Demarco DO : 1940 BED: DIS: 03/27/2024 SPEC #: [id number] RECD: 03/27/24 15:00 STATUS: EDU DAVISJese #: [id number] ARNOLDO: 03/27/24 00:[address]: Whitney Demarco DEPT: CYTOLOGY RECD BY: Dain Em Tissues: Urine Procedures: Pap Stain (control) Special Stain Group II Cytospin Fluid HEADER OPERATION: Not noted PRE-OP DIAGNOSIS: Gross hematuria TISSUE SUBMITTED: Urine for cytology DIAGNOSIS CYTOLOGY Urine for cytology (cytospins): Negative for high grade urothelial carcinoma (Ilda Category System II). See comment. Ladarius 03/30/2024 COMMENT The Ilda System for urine cytology diagnostic categorization was used in the evaluation of this case. CYTOLOGY STUDY Slides are reviewed. CYTOLOGY GROSS Received is 35 ml of cloudy-yellow fluid labeled with the patient's name and and designated per the requisition as urine. Submitted for cytology preparation. Mr 03/30/2024 TC:5 CPT: 47263
[2024-03-27 17:54] LABS: Cytology, Body Fluid / CSF SEE PATHOLOGY REPORT
== END | disposition home or self-care (01) ==
PROVIDERS: PCP Internal Medicine; Referring Provider Internal Medicine; Visit Provider Internal Medicine
DX: R31.0 Gross hematuria (principal)
CPT/HCPCS: 88108; 88313

== ENCOUNTER 2024-07-07 09:11 | Outpatient (CLI) | payer MEDICARE, SELFPAY ==
--- NOTE | 2024-07-07 09:14 | NM_ITS ---
PROCEDURE: PYP LTD IMAGES CARDIAC AMYLOID REASON FOR EXAM: RULE OUT AMYLOIDOSIS TECHNIQUE: 22.7 mCi of technetium labeled pyrophosphate were given intravenously. Imaging of the right lung base in the cardiac apex was performed for assessment of possible amyloidosis. COMPARISON: None. FINDINGS: The heart/lung ratio measures 1. This is within normal range. NM/PYP Ltd Images Cardiac Amyloid IMPRESSION: No evidence of amyloidosis. Reading Location: [facility]
== END 2024-07-07 23:59 | disposition home or self-care (01) ==
LOC: NM 09:13
PROVIDERS: PCP Internal Medicine; Referring Provider Nurse Practitioner Family; Visit Provider Nurse Practitioner Family
DX: I48.92 Unspecified atrial flutter (principal); I10 Essential (primary) hypertension
CPT/HCPCS: 78800; A9538

== ENCOUNTER → 2024-08-11 | Outpatient (CLI) | payer MEDICARE, SELFPAY ==
--- NOTE | 2024-08-11 12:49 | ECHOD_ITS ---
Reason For Study Reason For Study: Afib, Aflutter Procedure This was a 2D Doppler, Color Flow transthoracic echocardiogram. Exam performed in department. Left Ventricle Normal LV size. Mild concentric left ventricular hypertrophy. The left ventricular ejection fraction is 55 %. Stage 1 diastolic dysfunction. Right Ventricle Normal right ventricle. Atria There is mild biatrial dilatation. Mitral Valve Mild (1+) mitral valve insufficiency. Tricuspid Valve Moderate (2+) eccentric tricuspid valve insufficiency. Right ventricular systolic pressure estimated to be 40 mmHg. Aortic Valve Trisinus/trileaflet aortic valve. Pulmonic Valve Trivial pulmonic valve insufficiency. Great Vessels Normal sized aortic root. Pericardium/Pleural No pericardial effusion. MMode/2D Measurements & Calculations LVIDd: 5.4 cm IVSd: 1.2 cm Ao root diam: 3.9 cm LVIDs: 3.5 cm LVPWd: 1.2 cm RVDd: 5.2 cm FS: 35.6 % LAV(MOD-bp): 106.8 ml LVAd ap4: 21.7 cm2 SV(MOD-sp4): 37.1 ml LAV(MOD-bp) Indexed: 52.3 ml/m2 LVLd ap4: 6.2 cm SI(MOD-sp4): 18.1 ml/m2 LAV(MOD-sp2): 77.7 ml EDV(MOD-sp4): 65.3 ml LAV(MOD-sp4): 146.1 ml EDV(sp4-el): 64.0 ml LVAs ap4: 13.6 cm2 LVLs ap4: 5.4 cm ESV(MOD-sp4): 28.2 ml ESV(sp4-el): 28.7 ml EF(MOD-sp4): 56.8 % EF(sp4-el): 55.1 % SV(sp4-el): 35.2 ml LA A4 area: 36.1 cm2 LA dimension(2D): 4.0 cm RA A4 area: 27.6 cm2 TAPSE: 2.0 cm Doppler Measurements & Calculations MV E max riley: 101.2 cm/sec Lat Peak E' Riley: 10.0 cm/sec Med Peak E' Riley: 9.5 cm/sec E/E' lat: 10.1 E/E' med: 10.6 Ao V2 max: 126.9 cm/sec LV V1 max: 93.6 cm/sec PA V2 max: 88.4 cm/sec Ao max P.5 mmHg LV V1 max P.5 mmHg Ao V2 mean: 93.4 cm/sec LV V1 mean P.0 mmHg Ao mean P.7 mmHg LV V1 mean: 66.5 cm/sec Ao V2 VTI: 25.5 cm LV V1 VTI: 19.8 cm AV (velocity ratio): 0.78 PI end-d riley: 126.9 cm/sec TR max riley: 294.1 cm/sec TR max P.6 mmHg ECHO/Echo Complete Interpretation Summary Mild concentric left ventricular hypertrophy. The left ventricular ejection fraction is 55 %. Stage 1 diastolic dysfunction. There is mild biatrial dilatation. Mild (1+) mitral valve insufficiency. Moderate (2+) eccentric tricuspid valve insufficiency. Right ventricular systolic pressure estimated to be 40 mmHg. Ordering Physician: Pao Wu Referring Physician: Whitney Demarco Performed By: Amirah Castro, GABRIELLA, RVT
== END | disposition home or self-care (01) ==
LOC: CVS 12:47
PROVIDERS: PCP Internal Medicine; Referring Provider Internal Medicine Cardiovascular Disease; Visit Provider Internal Medicine Cardiovascular Disease
DX: I26.99 Other pulmonary embolism without acute cor pulmonale (principal)
CPT/HCPCS: 93306

== ENCOUNTER → 2024-12-04 | Outpatient (CLI) | payer MEDICARE, SELFPAY ==
--- NOTE | 2024-12-04 11:44 | BI_ITS ---
EXAM: SCRN MAMM (CAD)W/MARYURI BILAT DATE: 12/04/2024 CLINICAL HISTORY: F, Age 84 y/o , SCRN MAMM (CAD)W/MARYURI BILAT TECHNIQUE: SCRN MAMM (CAD)W/MARYURI BILAT COMPARISON: Prior exam(s) dated 11/27/2023. FINDINGS: TISSUE DENSITY: The breasts are almost entirely fatty. Bilateral Breast Mammographic Findings: No significant masses, calcifications or other abnormalities are identified. BI/SCRN MAMM (CAD)W/MARYURI BILAT IMPRESSION: There is no mammographic evidence of malignancy. OVERALL FINAL ASSESSMENT BI-RADS 1: NEGATIVE. RECOMMENDATION: Routine annual follow-up in 1 Year A letter with findings and recommendations will be mailed to the patient. Reading Location: [id number]
== END | disposition home or self-care (01) ==
LOC: OPBI 11:42
PROVIDERS: PCP Internal Medicine; Referring Provider Internal Medicine; Visit Provider Internal Medicine
DX: Z12.31 Encounter for screening mammogram for malignant neoplasm of breast (principal)
CPT/HCPCS: 77063; 77067

== ENCOUNTER → 2025-02-23 | Outpatient (CLI) | payer MEDICARE, SELFPAY ==
[2025-02-23 17:49] LABS: Hematocrit 39.5 % (37-47); Hemoglobin 13.2 g/dL (12.0-15.0); Immature Granulocytes Count 0.030 X10^3/uL (0.0-0.0); Mean Corp Hgb Conc 33.4 g/dL (32-36); Mean Corpuscular Volume 88.4 fL (81-99); Mean Platelet Vol. 11.5 fl (6.2-12.0); NRBC Flagged by Analyzer 0 % (0-5); Platelet Count 239 K/mm3 (150-450); RBC Distribution Width CV 15.9 % (11.6-14.6); RBC Distribution Width SD 51.4 fl (35.1-43.9); Red Blood Count 4.47 M/mm3 (4.2-5.4); White Blood Count 7.4 K/mm3 (4.4-11.0)
[2025-02-23 17:58] LABS: Color, Urine Yellow (Yellow); Glucose, Dipstick Normal (Normal); Ketone-Dipstick Negative (Negative); Leukocyte Esterase-Dipstick 100 /ul (Negative); Nitrite-Dipstick Negative (Negative); Occult Blood-Urine 10 /ul (Negative); Protein-Dipstick 15 mg/dl (Negative); Specific Gravity, Urine 1.015 (1.002-1.030); Urine Bilirubin Dipstick Negative (Negative)
[2025-02-23 18:07] LABS: Creatinine, Urine (random) 102.00 mg/dL (28.00-217.00); Microalbumin,Random Urine 25.3 mg/L (<20 mg/L)
[2025-02-23 18:34] LABS: AST(SGOT) 22 U/L (<=31); Alanine Aminotransfer ALT/SGPT 9 U/L (<=34); Albumin, Serum 4.2 g/dL (3.4-4.8); Alkaline Phosphatase 124 U/L (35-104); Anion Gap 12 (5-15); BUN 15 mg/dL (4-19); BUN/Creat Ratio 26.1 RATIO (10-20); Calcium,Total 9.5 mg/dL (7.6-11.0); Carbon Dioxide 26.8 mmol/L (21.0-32.0); Chloride 103 mmol/L (98-108); Cholesterol 181 mg/dL (<=200); Globulin 2.6 g/dL (2.2-4.2); Glucose 114 mg/dL (70-99); Low Density Lipoprotein Calc. 108 mg/dL; Potassium 3.4 mmol/L (3.3-5.1); Triglycerides 121 mg/dL; Very Low Density Lipoprotein 24 mg/dL (5-40); Vitamin D,25 Hydroxy 40.8 ng/mL (30-100); cholesterol:hdl ratio screen 3.54
== END | disposition home or self-care (01) ==
LOC: MTLAB 15:22
PROVIDERS: PCP Internal Medicine; Referring Provider Internal Medicine; Visit Provider Internal Medicine
DX: I11.9 Hypertensive heart disease without heart failure (principal); E03.9 Hypothyroidism, unspecified; R73.09 Other abnormal glucose
CPT/HCPCS: 36415; 80053; 80061; 81002; 82043; 82306; 82570; 83036; 84443; 85025

== ENCOUNTER → 2025-03-10 | Outpatient (CLI) | payer MEDICARE, SELFPAY ==
[2025-03-10 11:47] LABS: Mucous, Urine 0 SEEN /hpf (<or=2+)
[2025-03-10 18:39] LABS: Color, Urine Yellow (Yellow); Glucose, Dipstick Normal (Normal); Ketone-Dipstick Negative (Negative); Leukocyte Esterase-Dipstick 25 /ul (Negative); Nitrite-Dipstick Negative (Negative); Occult Blood-Urine 10 /ul (Negative); Protein-Dipstick 30 mg/dl (Negative); Specific Gravity, Urine 1.015 (1.002-1.030); Urine Bilirubin Dipstick Negative (Negative)
[2025-03-10 21:12] LABS: Red Blood Cells-Urine 0-5 SEEN /hpf (0-5); Squamous Epithelial Cells - UA 0-5 SEEN /hpf (5-10)
== END | disposition home or self-care (01) ==
LOC: CIMLAB 11:46
PROVIDERS: PCP Internal Medicine; Referring Provider Internal Medicine; Visit Provider Internal Medicine
DX: D64.9 Anemia, unspecified (principal)
CPT/HCPCS: 81001

== ENCOUNTER → 2025-04-02 | Outpatient (CLI) | payer MEDICARE, SELFPAY ==
--- NOTE | 2025-04-02 14:23 | RAD_ITS ---
PROCEDURE: KNEE 4 OR MORE VIEWS 04/02/2025 REASON FOR EXAM: PAIN AND SWELLING TECHNIQUE: Procedure Code: RADKN Modality: DX Procedure: KNEE 4 OR MORE VIEWS Laterality: Left COMPARISON: None FINDINGS: Degenerative changes of the medial and patellofemoral compartments of the knee. No fracture. No dislocation. Vascular calcification. No soft tissue swelling. RAD/Knee 4 or More Views IMPRESSION: Degenerative changes of the medial and patellofemoral compartment. Small suprapatellar joint effusion. No acute fracture. Reading Location: [id number]
== END | disposition home or self-care (01) ==
LOC: MTRAD 14:23
PROVIDERS: PCP Internal Medicine; Referring Provider Physician Assistant Surgical; Visit Provider Physician Assistant Surgical
DX: S86.912A Strain of unspecified muscle(s) and tendon(s) at lower leg level, left leg, initial encounter (principal)
CPT/HCPCS: 73564

== ENCOUNTER → 2025-04-09 | Outpatient (CLI) | payer MEDICARE, SELFPAY ==
[2025-04-09 15:42] LABS: Ferritin 63 ng/mL (22-378); Iron 65 ug/dL (50-170); Iron Binding Capacity,Total 356 ug/dL (250-450); Iron Binding Capacity,Unsat 291 ug/dL (228-428)
== END | disposition home or self-care (01) ==
LOC: CIMLAB 12:02
PROVIDERS: PCP Internal Medicine; Referring Provider Internal Medicine; Visit Provider Internal Medicine
DX: D50.9 Iron deficiency anemia, unspecified (principal)
CPT/HCPCS: 36415; 82728; 83540; 83550